=== PATIENT | female | born 1980 | race Hispanic/Latino ===

== ENCOUNTER 2017-11-24 03:46 | Emergency (ER) | payer OTHER ==
[2017-11-24] MEDS ORDERED: Acetaminophen 500 MG TAB ONE (04:03)
[2017-11-24 04:19] LABS: BHCG - Serum Negative (NEGATIVE); Pregs Control Background? CLEAR/WHITE (CLR/WHITE); Pregs Control Bar Appear? YES (CONTROL BAR)
[2017-11-24 04:23] LABS: Band 4 % (5-11); Eosinophils 1 % (0-10); Hemoglobin 15.6 g/dL (12.0-16.0); Lymphocytes 8 % (21-51); MDiff Complete? YES; Mean Corpuscular HGB CONC 33.6 g/dL (32.0-36.0); Mean Corpuscular Hemoglobin 29.8 pg (27.0-31.0); Mean Corpuscular Volume 88.5 fl (81.0-99.0); Mean Platelet Volume 9.2 fL (7.4-10.4); Monocytes 2 % (0-10); Neutrophil 85 % (42-75); Platelet Count 218 thou/uL (130-400); RBC Distribution Width 11.5 % (11.5-14.5); Red Blood Cell (RBC) Count 5.25 mill/uL (4.20-5.40); White Blood Cell (WBC) Count 20.2 thou/uL (4.8-10.8)
[2017-11-24 04:26] LABS: ALT (SGPT) 32 U/L (8-55); AST (SGOT) 27 U/L (5-34); Albumin 4.4 g/dL (3.5-5.0); Alkaline Phosphatase 114 U/L (40-150); Anion Gap 17 mmol/L (10-20); BUN (Urea Nitrogen) 11 mg/dL (7.0-18.7); Bilirubin, Total 0.9 mg/dL (0.2-1.2); Calc. Creatinine Clearance 0 mL/min (70-130); Calcium 9.6 mg/dL (7.8-10.44); Carbon Dioxide 20 mmol/L (22-29); Chloride 102 mmol/L (98-107); Estimated GFR-MDRD 80; Globulin 3.9 g/dL (2.4-3.5); Glucose 107 mg/dL (70-105); Potassium 4.1 mmol/L (3.5-5.1); Protein, Total 8.3 g/dL (6.0-8.3); Sodium 135 mmol/L (136-145)
[2017-11-24 04:28] LABS: CKMB 0.4 ng/mL (0-6.6); Troponin I Less than 0.010 ng/mL (< 0.028)
--- NOTE | 2017-11-24 12:57 | RAD ---
AP VIEW CHEST: HISTORY: Chest pain, left shoulder pain. FINDINGS: AP view chest is obtained on 11/24/17. Comparison is made to previous exam from 03/22/16. AP view chest demonstrates the lungs to be well aerated. No evidence of active intrathoracic disease is seen. No evidence of effusions, pneumonia, or pneumothorax is seen. An old healed left midclavicular fracture is seen. IMPRESSION: No evidence of acute intrathoracic abnormality is seen. POS: [facility]
== END 2017-11-24 05:36 | disposition home or self-care (01) ==
LOC: SCSER 03:46
DX: J06.9 Acute upper respiratory infection, unspecified (principal); R07.89 Other chest pain; F32.9 Major depressive disorder, single episode, unspecified; F17.210 Nicotine dependence, cigarettes, uncomplicated
CPT/HCPCS: 71045; 80053; 82553; 84484; 84703; 85025; 93005

== ENCOUNTER 2017-11-24 20:32 | Inpatient (IN) | payer OTHER ==
[2017-11-24] MEDS ORDERED: Propofol 1,000 MG/100 ML VIAL IV ONE (20:45)
[2017-11-24 21:03] LABS: Bilirubin Negative (Negative); Blood, Urine Trace (Negative); Clarity CLOUDY (Clear); Glucose, Urine (Dipstick) >=1000 mg/dL (Negative); Leukocyte Negative (Negative); Nitrite Negative (Negative); Protein, Urine (Dipstick) 300 mg/dL (Neg-Trace); Specific Gravity, Urine 1.023 (1.002-1.036); pH, Urine 6.5 (5.0-9.0)
[2017-11-24 21:04] LABS: Pregnancy Test - Urine (BHCG) Negative (Negative); Pregu Control Background? CLEAR/WHITE (CLR/WHITE); Pregu Control Bar Appear? YES (CONTROL BAR); Specific Gravity 1.023 (1.002-1.036)
[2017-11-24 21:05] LABS: Bacteria/HPF None Seen HPF (None Seen); Hyaline Casts/LPF 7-10 HYALINE CAST LPF (0-3 Hyaline); Pathc Cast-AUWi Flag 2.16 (0-2.49); WBC/HPF 0-3 HPF (0-3)
[2017-11-24 21:08] LABS: INR-International Normal Ratio 1.1; PTT 23.4 SEC (22.9-36.1); Prothrombin Time 14.5 SEC (12.0-14.7)
[2017-11-24 21:09] LABS: #Monocytes 0.9 thou/uL (0.11-0.59); #Neutrophils 19.4 thou/uL (1.40-6.50); %Basophils 0.1 % (0.0-1.0); %Eosinophils 0.1 % (0.0-10.0); %Lymphocytes 8.8 % (21.0-51.0); %Monocytes 4.2 % (0.0-10.0); %Neutrophils 86.8 % (42.0-75.0); Hemoglobin 14.9 g/dL (12.0-16.0); Mean Corpuscular HGB CONC 33.7 g/dL (32.0-36.0); Mean Corpuscular Hemoglobin 31.4 pg (27.0-31.0); Mean Corpuscular Volume 93.3 fl (81.0-99.0); Mean Platelet Volume 8.1 fL (7.4-10.4); Platelet Count 216 thou/uL (130-400); RBC Distribution Width 11.9 % (11.5-14.5); Red Blood Cell (RBC) Count 4.75 mill/uL (4.20-5.40); White Blood Cell (WBC) Count 22.3 thou/uL (4.8-10.8)
[2017-11-24 21:12] LABS: Amphetamine Not Detected (NotDetected); Barbiturates Screen Not Detected (NotDetected); Benzodiazepine Screen Detected (NotDetected); Cocaine Metabolite Screen Detected (NotDetected); Medtox Control Line Valid? VALID (VALID); Medtox Reader # READER 1; Methadone Not Detected (NotDetected); Methamphetamine Not Detected (NotDetected); Opiate Screen Not Detected (NotDetected); Oxycodone Screen Not Detected (NotDetected); Phencyclidine (PCP) Not Detected (NotDetected); THC/Cannabinoid Screen Not Detected (NotDetected); Tricyclic Screen Not Detected (NotDetected)
[2017-11-24 21:17] LABS: pH, Arterial 7.35 (7.35-7.45)
[2017-11-24 21:18] LABS: Actual Bicarbonate (HCO3a) 22.1 mEq/L (22-26); Base Excess (BEa) -3.2 mEq/L (0 (+/-) 2.5); CO2 Tension 40.7 mmHg (35.0-45.0); Hematocrit-ABG 45.5 % (36.0-47.0); Hemoglobin (Hb) 14.6 g/dL (12.0-16.0); O2 Tension (PaO2) 74.4 mmHg (80.0-100.0)
[2017-11-24 21:19] LABS: Analyzer IN Cardio ER; Calcium, Ionized 1.2 mmol/L (1.12-1.30); Puncture Site RR
[2017-11-24] MEDS ORDERED: Fentanyl 100 MCG/2 ML VIAL ONE ×4 (21:23→23:18)
[2017-11-24 21:24] LABS: ALT (SGPT) 25 U/L (8-55); AST (SGOT) 28 U/L (5-34); Alkaline Phosphatase 106 U/L (40-150); Anion Gap 16 mmol/L (10-20); BUN (Urea Nitrogen) 11 mg/dL (7.0-18.7); Bilirubin, Total 0.5 mg/dL (0.2-1.2); Calc. Creatinine Clearance 0 mL/min (70-130); Calcium 8.8 mg/dL (7.8-10.44); Carbon Dioxide 17 mmol/L (22-29); Chloride 109 mmol/L (98-107); Estimated GFR-MDRD 81; Globulin 3.6 g/dL (2.4-3.5); Glucose 213 mg/dL (70-105); Potassium 4.8 mmol/L (3.5-5.1); Protein, Total 7.6 g/dL (6.0-8.3); Sodium 137 mmol/L (136-145)
[2017-11-24 21:25] LABS: CKMB 0.5 ng/mL (0-6.6)
[2017-11-24 21:29] LABS: Acetaminophen Less than 6.0 mcg/mL (10.0-30.0); Alcohol Less than 10 mg/dL (Less than 10); Salicylate Less than 8.0 mg/dL (15.0-30.0)
[2017-11-24] MEDS ORDERED: Vecuronium 10 MG VIAL ONE (21:36)
[2017-11-24] MEDS ORDERED: Water For Inject, Bacteriostat 30 ML ONE (21:37)
[2017-11-24 21:43] LABS: Troponin I Less than 0.010 ng/mL (< 0.028)
--- NOTE | 2017-11-24 22:06 | RAD ---
FRONTAL RADIOGRAPH CHEST: Date: 11-24-17 Time: 8:41 p.m. Comparison: 11-24-17 at 4:24 a.m. History: Unresponsive patient. FINDINGS: There is an endotracheal tube in place, extending into the region of the right main stem bronchus. Th e endotracheal tube should be retracted approximately 2.5 cm. Nasogastric tube extends into upper abd omen. Supine imaging limits assessment for pneumothorax and pleural fluid. There is mild pulmonary vascular prominence. There is hazy increased density in the medial left lung base which suggests volume loss or infiltrate. IMPRESSION: Lines and tubes as above. This includes right main stem bronchus intubation. Pulmonary vasculature co ngestion and increased density in the medial left base as above. Dr. Mckeon made aware of findings at 9:00 p.m. 11-24-17. Code CR. POS: [facility]
--- NOTE | 2017-11-24 22:12 | CT ---
HEAD CT WITHOUT CONTRAST: Date: 11-24-17 Comparison: None. History: Unresponsive. Technique: Serial axial CT imaging at 5 mm intervals from vertex through skull base without contrast. FINDINGS: Imaged paranasal sinuses/mastoid air cells are well aerated. There is displaced calvarial fracture. There is no intracranial hemorrhage, midline shift, or mass effect. IMPRESSION: No acute intracranial abnormality. POS: [facility]
--- NOTE | 2017-11-24 22:18 | CT ---
CT OF THE CERVICAL SPINE WITHOUT CONTRAST: Date: 11-24-17 Comparison: None. History: Trauma, pain. Technique: Serial axial CT imaging obtained at 2.5 mm intervals from the thoracic inlet to lung bases without contrast. Coronal and sagittal reformatted imaging obtained. FINDINGS: The partially imaged right lung apex demonstrates interstitial and alveolar opacity as well as fluid layering posteriorly. The left lung apex appears unremarkable. Partially imaged endotracheal tube and nasogastric tube present. The craniocervical junction and cervicothoracic junction appear intact. There is moderate degenerativ e change at the atlantoaxial interspace. There is no prevertebral soft tissue swelling. There is mild posterior osteophyte formation at C5-6 and C6-7. There is no evidence for acute fracture or dislocation. IMPRESSION: 1. Imaged right lung apex demonstrates interstitial and alveolar opacity with layering posterior flui d. 2. No cervical fracture or dislocation seen. POS: [facility]
[2017-11-24 22:45] LABS: Color Of CSF Supernatant COLORLESS (Colorless); Tube # 2; Unspun CSF Color COLORLESS (Colorless)
[2017-11-24] MEDS ORDERED: Piperacillin/Tazobactam 4.5 GM in Sodium Chloride 0.9% 100 ML IVPB SCH (22:45)
[2017-11-24 22:58] LABS: CSF, Glucose 105 mg/dl (40-70); CSF, Protein 35 mg/dL (15-40)
--- NOTE | 2017-11-24 23:00 | PDOC.FPRHP ---
- History of Present Illness Chief Complaint: Unresponsive History of Present Illness: This is a 37 y/o F with no known PMHx who presented to the ED by EMS after being found unresponsive by her daughter around 8pm. The history was obtained by the daughter. The patient had been not feeling well over the past day and had gone to the ED in the middle of the night prior at [facility] ED for URI symptoms and was found to have an elevated WBC count and was sent home with a prescription for azithromycin. The patient reportedly had felt better throughout the day, but then the daughter states that she heard her mom say that night that she just "wanted to go to sleep." The daughter rushed home at that point and the other son and daughter were at the house and found that she had fallen on the bathroom floor and had vomit and mucus around her mouth and was laying on her right side. The daughter reports that she does not think that the mom had been under any worse stress lately. ED Course: The patient was evaluated by Dr. Mckeon in the ED and was given propofol gtt, fentanyl 100mcg IVP 4 times, vecuronium 10mg IVP, Vancomycin 1g, Zosyn 4.5g. A Lumbar puncture was performed in the ED as well. - Allergies/Adverse Reactions Allergies Allergy/AdvReac Type Severity Reaction Status Date / Time No Known Drug Allergies Allergy Verified 11/24/17 22:44 - Home Medications Comments: Unable to obtain due to endotracheal tube. - History PMHx: No known PSHx: No known FHx: No known Social: Per the daughter, the patient smokes and drinks occasionally, but does not use any drugs - Review of Systems ROS unobtainable: due to endotracheal tube - Vital signs BP: 112/77 HR: 60 RR: 14 Tmax: 97.2 Pox: 100% on Ventilator Wt: 71.5kg - Physical Exam Constitutional: other (intubtated, sedated) HEENT: PERRLA, conjunctiva clear, normal nasal mucosa, MMM, oropharynx clear ( endotracheal tube in place) Neck: trachea midline, no LAD Heart: RRR, normal S1/S2, no murmurs/rubs/gallops -Lungs: Intubated, ventilated, crackles heard bilaterally, no wheezes Abdomen: soft, bowel sounds present, no masses/distention Musculoskeletal: normal structure, normal tone Skin: good turgor, capillary refill <2 seconds Heme/Lymphatic: no unusual bruising or bleeding, no petechia FMR H&P: Results - Labs Result Diagrams: 11/24/17 20:46 11/24/17 20:46 Lab results: WBC 22.3 thou/uL (4.8-10.8) H 11/24/17 20:46 Hgb 14.9 g/dL (12.0-16.0) 11/24/17 20:46 Hct 44.4 % (36.0-47.0) 11/24/17 20:46 MCV 93.3 fl (81.0-99.0) 11/24/17 20:46 Plt Count 216 thou/uL (130-400) 11/24/17 20:46 Neutrophils % 86.8 % (42.0-75.0) H 11/24/17 20:46 ABG pH 7.35 (7.35-7.45) 11/24/17 21:06 ABG pCO2 40.7 mmHg (35.0-45.0) 11/24/17 21:06 ABG pO2 74.4 mmHg (80.0-100.0) L 11/24/17 21:06 Sodium 137 mmol/L (136-145) 11/24/17 20:46 Potassium 4.8 mmol/L (3.5-5.1) 11/24/17 20:46 Chloride 109 mmol/L (98-107) H 11/24/17 20:46 Carbon Dioxide 17 mmol/L (22-29) L 11/24/17 20:46 BUN 11 mg/dL (7.0-18.7) 11/24/17 20:46 Creatinine 0.80 mg/dL (0.6-1.1) 11/24/17 20:46 Glucose 213 mg/dL (70-105) H 11/24/17 20:46 Lactic Acid 2.3 mmol/L (0.5-2.2) H 11/24/17 20:46 Calcium 8.8 mg/dL (7.8-10.44) 11/24/17 20:46 Total Bilirubin 0.5 mg/dL (0.2-1.2) 11/24/17 20:46 AST 28 U/L (5-34) 11/24/17 20:46 ALT 25 U/L (8-55) 11/24/17 20:46 Alkaline Phosphatase 106 U/L (40-150) 11/24/17 20:46 CK-MB (CK-2) 0.5 ng/mL (0-6.6) 11/24/17 20:46 Serum Total Protein 7.6 g/dL (6.0-8.3) 11/24/17 20:46 Albumin 4.0 g/dL (3.5-5.0) 11/24/17 20:46 Urine Ketones Negative mg/dL (Negative) 11/24/17 20:45 Urine Blood Trace (Negative) H 11/24/17 20:45 Urine Nitrite Negative (Negative) 11/24/17 20:45 Ur Leukocyte Esterase Negative (Negative) 11/24/17 20:45 Urine RBC 7-10 HPF (0-3) H 11/24/17 20:45 Urine WBC 0-3 HPF (0-3) 11/24/17 20:45 Ur Squamous Epith Cells 7-10 HPF (0-3) H 11/24/17 20:45 Urine Bacteria None Seen HPF (None Seen) 11/24/17 20:45 - EKG Interpretation EKG: NSR, T wave inversion in lead III - Radiology Interpretation Chest x-ray Status: image reviewed by me, report reviewed by me Additional comment: Pulmonary vascular congestion, increased density in medial L base CT scan - head Status: report reviewed by me Additional comment: No acute intracranial process Other Status: image reviewed by me, report reviewed by me Additional comment: CT cervical spine: R lung apex - interstitial and alveolar opacity with layering posterior fluid. No cervical fracture FMR H&P: A/P - Problem List (1) Encephalopathy Current Visit: Yes Status: Acute Code(s): G93.40 - ENCEPHALOPATHY, UNSPECIFIED (2) Acute respiratory failure with hypoxia Current Visit: Yes Status: Acute Code(s): J96.01 - ACUTE RESPIRATORY FAILURE WITH HYPOXIA (3) Aspiration pneumonia due to inhalation of vomitus Current Visit: Yes Status: Suspected Code(s): J69.0 - PNEUMONITIS DUE TO INHALATION OF FOOD AND VOMIT (4) Hyperglycemia Current Visit: Yes Status: Acute Code(s): R73.9 - HYPERGLYCEMIA, UNSPECIFIED (5) Cocaine abuse Current Visit: Yes Status: Acute Code(s): F14.10 - COCAINE ABUSE, UNCOMPLICATED (6) Benzodiazepine abuse Current Visit: Yes Status: Acute Code(s): F13.10 - SEDATIVE, HYPNOTIC OR ANXIOLYTIC ABUSE, UNCOMPLICATED (7) Leukocytosis Current Visit: Yes Status: Acute Code(s): D72.829 - ELEVATED WHITE BLOOD CELL COUNT, UNSPECIFIED Qualifiers: Leukocytosis type: unspecified Qualified Code(s): D72.829 - Elevated white blood cell count, unspecified (8) Metabolic acidosis Current Visit: Yes Status: Acute Code(s): E87.2 - ACIDOSIS - Plan Encephalopathy This is likely toxic 2/2 drug overdose, but cannot rule out infectious. UDS was + for benzos and cocaine. Brain CT neg. Concern for SI based on the daughter's history. CXR concerning for increased density at R lung base. Elevated WBC count at 22.3. -Admit to ICU -Consult pulmonology/Critical Care -Continue mechanical ventilation and sedation protocol at this time -CSF cx -Blood cx -Urine cx -Consult [facility] once medically cleared Acute Hypoxic Respiratory Failure Intubated and sedated by EMS as unable to protect airway and had a respiratory rate of 8. This is likely 2/2 drug overdose with cocaine and benzos on UDS, but patient also has elevated WBC count and concern for pneumonia on CXR. -Continue mechanical ventilation -Consult Pulm, appreciate recs Concern for Aspiration Pneumonia The patient was found down with vomit next to her. After being admitted to the floor she was suctioned and there was vomit that came out in the suction. On the CT it showed concern for aspiration in her RUL. -Vanc and Zosyn -NS Lactic acidosis Initial lactate was 2.3 -Repeat lactate -Will give NS Polysubstance abuse UDS was positive for Cocaine and Benzos -Redrawer once awake Hyperglycemia Initial glucose was elevated and the patient has no h/o DM. -A1c -SSI if the glucose remains elevated Metabolic acidosis This is likely a compensatory mechanism 2/2 respiratory depression due to patient having a RR of 8 when initially found by EMS -BMP in AM Disposition/LOS: Admit to ICU, length of stay likely 2 days FMR H&P: Upper Level - Plan Date/Time: 11/24/17 1440 Gaye Michel, PGY3, have evaluated this patient and agree with findings/plan as outlined by editing internship resident. Pertinent changes/additions are listed here. This is a 37 yo WF w/ no PMH per daughter and son, presents w/ AMS. She was found down around 8:00pm in the bathroom, and had told her 11year old daughter that she just wanted to sleep and was noted to have difficulty breathing. When older daughter arrived, she was covered in secretions. Denied any seizure like activity. No loss of bowel or bladder. PE: Gen: Intubated and Sedated CV: Difficult to hear over ventilator Resp: course breath sounds bilaterally. on Ventilator: R-14, Ps-10, Oxy 100%, PEEP 5, Vt- 500. Ext: +2 pedal pulses bilaterally Skin: Multiple tattooes. No rash. Abd: Soft. No rebound or guarding. A/P: 1) Encephalopathy - Toxic verses metabolic verses infectious. Brain CT negative. UDS positive for Coccaine and Benzo's. Per family, they deny any medications. CXR showed pulmonary vascular congestion and increased density at medial right base. Possibly SI. Sitter once awake. Consult [employer] once medically cleared. Admit patient to the ICU. F/u with CSF, blood cx, urine cx. Consult Critical Care. C-Spine CT scan - negative for fracture. Pt in cervical collar. 2) Acute hypoxic respiratory failure - Intubated and sedated on EMS as unable to protect airway. Possibly 2/2 overdose verse infectious cause. 3) Possibly aspiration pneumonia - Vancomycin, Zosyn. Fluids. 3) Lactic acidosis - Repeat Lactic acid. Fluids 4) Polysubstance abuse - UDS + coccaine and Benzodiazepine. 5) Elevated Glucose - HgA1c. Accuchecks. Betahydroxybuterate. ISS 6) Metabolic acidosis - likely compensating for respiratory depression. F/u with BMP in am. Attending Addendum - Attending Addendum Date/Time: 11/25/17215 I personally evaluated the patient and discussed the management with Dr. Denny on 11/25/17. I agree with the History, Examination, Assessment and Plan documented above with any addition or exceptions noted below. Patient with acute hypoxic respiratory failure secondary requiring mechanical ventilation secondary to drug overdose with cocaine and benzos, as well as aspiration pneumonia also secondary to drug overdose. On Vanc/Zosyn for aspiration PNA. Neuro exam grossly intact based on patient's movements when sedation wears off. Likely extubate in the morning. Once extubated and medically stable, recommend MHMR consult.
[2017-11-24 23:18] LABS: CSF Source CSF; Clarity Hazy (Clear); RBC Count - Manual 2796 /cumm (None Seen); Tube # 1; WBC/NonHematics Count - Manual 0 /cumm (0-5)
[2017-11-24 23:22] LABS: CSF Source CSF; Clarity Clear (Clear); RBC Count - Manual 10 /cumm (None Seen); Tube # 4; WBC/NonHematics Count - Manual 0 /cumm (0-5)
[2017-11-25] MEDS ORDERED: Fentanyl 100 MCG/2 ML VIAL ONE (00:02)
[2017-11-25] MEDS ORDERED: Dextrose 50% Abboject 50 ML SYRINGE SLOW IVP PRN (00:25)
[2017-11-25] MEDS ORDERED: Senokot 8.6 MG TAB PO PRN (00:25)
[2017-11-25] MEDS ORDERED: Dextrose 5% in Water 1,000 ML IV PRN (00:25)
[2017-11-25] MEDS ORDERED: Sedation Protocol FS SCH (00:25)
[2017-11-25] MEDS ORDERED: HumaLOG 300 UNITS/3 ML VIAL SC PRN ×2 (00:25)
[2017-11-25] MEDS ORDERED: Ondansetron ODT 4 MG TAB PO PRN (00:25)
[2017-11-25] MEDS ORDERED: Lorazepam 2 MG/ML VIAL ONE (00:28)
[2017-11-25] MEDS ORDERED: Sodium Chloride 0.9% 1,000 ML IV SCH (00:30)
[2017-11-25] MEDS ORDERED: DISCONTINUE PREVIOUS NARCOTIC PAIN MEDICATIONS AND BENZODIAZEPINES FS SCH (00:36)
[2017-11-25] MEDS ORDERED: fentaNYL Citrate/PF 2,000 MCG in Sodium Chloride 0.9% 60 ML IV SCH (00:36)
[2017-11-25] MEDS ORDERED: Morphine 2 MG/ML SYRINGE SLOW IVP PRN (00:36)
[2017-11-25] MEDS ORDERED: Morphine 4 MG/ML VIAL SLOW IVP PRN (00:38)
[2017-11-25] MEDS: Sodium Chloride 0.9% 1,000 ML IV SCH ×4 (01:00→19:18)
[2017-11-25] MEDS: Propofol 1,000 MG/100 ML VIAL IV PRN ×6 (01:21→23:22)
[2017-11-25 01:30] LABS: Lactic Acid 1.8 mmol/L (0.5-2.2)
[2017-11-25 01:46] LABS: CKMB 0.8 ng/mL (0-6.6); Troponin I 0.119 ng/mL (< 0.028)
[2017-11-25] MEDS: Lorazepam 2 MG/ML VIAL SLOW IVP PRN ×5 (02:48→23:11)
[2017-11-25 05:06] LABS: #Lymphocytes 1.9 thou/uL (1.20-3.40); #Monocytes 1.2 thou/uL (0.11-0.59); #Neutrophils 22.4 thou/uL (1.40-6.50); %Basophils 0.1 % (0.0-1.0); %Eosinophils 0.1 % (0.0-10.0); %Lymphocytes 7.4 % (21.0-51.0); %Monocytes 4.9 % (0.0-10.0); %Neutrophils 87.6 % (42.0-75.0); Hemoglobin 13.8 g/dL (12.0-16.0); Mean Corpuscular HGB CONC 32.7 g/dL (32.0-36.0); Mean Corpuscular Hemoglobin 30.6 pg (27.0-31.0); Mean Corpuscular Volume 93.6 fl (81.0-99.0); Mean Platelet Volume 9.5 fL (7.4-10.4); Platelet Count 170 thou/uL (130-400); RBC Distribution Width 11.9 % (11.5-14.5); White Blood Cell (WBC) Count 25.6 thou/uL (4.8-10.8)
[2017-11-25 05:24] LABS: Anion Gap 14 mmol/L (10-20); BUN (Urea Nitrogen) 8 mg/dL (7.0-18.7); Calc. Creatinine Clearance 129 mL/min (70-130); Calcium 8.7 mg/dL (7.8-10.44); Carbon Dioxide 16 mmol/L (22-29); Chloride 112 mmol/L (98-107); Estimated GFR-MDRD Greater than 90; Glucose 107 mg/dL (70-105); Potassium 3.6 mmol/L (3.5-5.1); Sodium 138 mmol/L (136-145)
[2017-11-25 05:46] LABS: CKMB 1.1 ng/mL (0-6.6); Troponin I 0.126 ng/mL (< 0.028)
[2017-11-25] MEDS ORDERED: Piperacillin/Tazobactam 3.375 GM in Sodium Chloride 0.9% 100 ML IVPB SCH (06:00)
[2017-11-25 07:28] LABS: Puncture Site LRA
[2017-11-25 07:29] LABS: ALV-art Gradient 135.775 (0-20); Actual Bicarbonate (HCO3a) 18.8 mEq/L (22-26); Base Excess (BEa) -2.7 mEq/L (0 (+/-) 2.5); CO2 Tension 24.1 mmHg (35.0-45.0); O2 Tension (PaO2) 119.3 mmHg (80.0-100.0); pH, Arterial 7.51 (7.35-7.45)
[2017-11-25 07:30] LABS: Calcium, Ionized 1.2 mmol/L (1.12-1.30); Hematocrit-ABG 35.3 % (36.0-47.0); Hemoglobin (Hb) 12.2 g/dL (12.0-16.0)
[2017-11-25] MEDS: Enoxaparin Sodium 40 MG/0.4 ML SYRINGE SC SCH (08:02)
[2017-11-25] MEDS: Vancomycin HCl 1 GM in Premix Bag 1 BAG IVPB SCH ×2 (08:03→21:59)
[2017-11-25] MEDS: Piperacillin/Tazobactam 3.375 GM in Sodium Chloride 0.9% 100 ML IVPB SCH ×3 (08:03→21:59)
[2017-11-25] MEDS: Famotidine 40 MG/4 ML VIAL SLOW IVP SCH ×2 (08:50→22:07)
[2017-11-25 08:52] LABS: CKMB 1.1 ng/mL (0-6.6); Troponin I 0.165 ng/mL (< 0.028)
[2017-11-25] MEDS ORDERED: FLU VACC QS2017-18 36 mo. & older 0.5 ML SYRINGE IM ONE (09:00)
--- NOTE | 2017-11-25 09:01 | PDOC.FM ---
- Subjective Subjective: Patient found at bedside, intubated and sedated. Nursing states there was no issues overnight besides agitation. Patient was placed in restraint for self protection. - Objective MAR Reviewed: Yes Vital Signs & Weight: Vital Signs (12 hours) Temp Pulse Resp BP Pulse Ox 11/25/17 06:52 68 107/73 11/25/17 06:00 14 11/25/17 04:00 97.4 F L 14 11/25/17 02:00 14 11/25/17 01:31 70 11/25/17 00:39 96.4 F L 67 14 100 11/25/17 00:25 14 11/25/17 00:10 97.8 F 70 14 98 Weight Admit Weight 70.2 kg Weight 71.3 kg Most Recent Monitor Data Heart Rate from ECG 62 NIBP 121/80 NIBP BP-Mean 100 Respiration from ECG 14 SpO2 100 I&O: 11/24/17 11/25/17 11/26/17 06:59 06:59 06:59 Intake Total 1026 Output Total 145 Balance 881 Result Diagrams: 11/25/17 04:28 11/25/17 04:28 <Hai Warner - Last Filed: 11/25/17 10:15> - Objective Vital Signs & Weight: Vital Signs (12 hours) Temp Pulse Resp BP Pulse Ox 11/25/17 06:52 68 107/73 11/25/17 06:00 14 11/25/17 04:00 97.4 F L 14 11/25/17 02:00 14 11/25/17 01:31 70 11/25/17 00:39 96.4 F L 67 14 100 11/25/17 00:25 14 11/25/17 00:10 97.8 F 70 14 98 Weight Admit Weight 70.2 kg Weight 71.3 kg Most Recent Monitor Data Heart Rate from ECG 62 NIBP 121/80 NIBP BP-Mean 100 Respiration from ECG 14 SpO2 100 I&O: 11/24/17 11/25/17 11/26/17 06:59 06:59 06:59 Intake Total 1026 Output Total 145 Balance 881 Result Diagrams: 11/25/17 04:28 11/25/17 04:28 <Radha Baez - Last Filed: 11/25/17 10:42> Phys Exam - Physical Examination Sedated HEENT: sclera anicteric PERRL Neck: no nodes Respiratory: no wheezing, clear to auscultation bilateral Cardiovascular: RRR, no significant murmur Gastrointestinal: soft, non-tender, no distention Musculoskeletal: no edema Sedated <Hai Warner - Last Filed: 11/25/17 10:15> Dx/Plan (1) Polysubstance abuse Code(s): F19.10 - OTHER PSYCHOACTIVE SUBSTANCE ABUSE, UNCOMPLICATED Status: Acute Plan: Positive for cocaine and benzo. Consider suicide as possibility, will consult [facility] and continue respiratory support (2) Acute respiratory failure with hypoxia Code(s): J96.01 - ACUTE RESPIRATORY FAILURE WITH HYPOXIA Status: Acute Plan: Currently sedated and on vent. Pulmonology is considering extubation tomorrow. Patient O2 saturation is appropriate. (3) Encephalopathy Code(s): G93.40 - ENCEPHALOPATHY, UNSPECIFIED Status: Acute Plan: At this time, still sedated, was combative when sedation lightened. Dx includes infectious vs substance abuse. (4) Hyperglycemia Code(s): R73.9 - HYPERGLYCEMIA, UNSPECIFIED Status: Acute Plan: At this time resolved. Last two BG was 107. (5) Aspiration pneumonia due to inhalation of vomitus Code(s): J69.0 - PNEUMONITIS DUE TO INHALATION OF FOOD AND VOMIT Status: Suspected Plan: CT read concerning for pneumonia. Covering for aspiration as patient was found next to vomit. Currently, not fevering, is on ventilator, cultures are pending. On zosyn and vanc. (6) Cardiac enzymes elevated Code(s): R74.8 - ABNORMAL LEVELS OF OTHER SERUM ENZYMES Status: Acute Plan: Cardiac going up. Will continue to trend. WIll consult cardiology if it continues to worsen. <AlanaHai Javi - Last Filed: 11/25/17 10:15> Attending Addendum - Attending Addendum Date/Time: 11/25/17 1041 I personally evaluated the patient and discussed the management with Dr. Warner. I agree with the History, Examination, Assessment and Plan documented above with any addition or exceptions noted below. The patient is intubated and sedated. Continue IV antibiotics. Cultures are pending. Appreciate Dr. Heard's recs. Cardiac enzymes are increasing likely 2/2 to demand. Will continue to trend. Check vanc trough. <Radha Baez - Last Filed: 11/25/17 10:42>
--- NOTE | 2017-11-25 09:16 | RAD ---
SINGLE VIEW OF THE CHEST: COMPARISON: None. HISTORY: Intubated patient with respiratory failure. FINDINGS: A single view of the chest shows a normal-size cardiomediastinal silhouette. The lines and tubes are unchanged in position. There is no evidence of consolidation, mass, or pleural effusion. IMPRESSION: No evidence of acute cardiopulmonary disease. POS: [facility]
--- NOTE | 2017-11-25 09:51 | CON ---
DATE OF CONSULTATION: 11/25/2017 Thirty-five minutes critical care time. CONSULTING PHYSICIAN: [facility]. HISTORY OF PRESENT ILLNESS: This is a 37-year-old female who was found down at home by her daughter around 8:00 last night. She was intubated in the field by paramedics secondary to altered mental sta tus. She had a lumbar puncture performed in the emergency room which essentially was negative for wh ite blood cells. As testing came back, it showed the patient was positive for both benzodiazepines a nd cocaine. Apparently prior to her incident yesterday she had been complaining of not feeling well and had vomited. PAST MEDICAL HISTORY: Unknown. PAST SURGICAL HISTORY: Unknown. FAMILY MEDICAL HISTORY: Unremarkable. SOCIAL HISTORY: Apparently smokes cigarettes and drinks alcohol, but quantity is unknown. Employmen t history is not known. ALLERGIES: None. REVIEW OF SYSTEMS: Twelve point review of systems cannot be obtained as the patient is intubated on mechanical ventilation. PHYSICAL EXAMINATION: VITAL SIGNS: Temperature is 97.4 with no fever overnight, pulse 62, blood pressure 121/80, 24-hour i ntake 1026, output 145. GENERAL: She has tattoos throughout her skin. HEENT: Her pupils are reactive to light. Sclerae icteric. Oropharynx dry. NECK: No JVD. LUNGS: Clear to auscultation without wheezing or rhonchi. CARDIOVASCULAR: S1, S2 regular, without murmur, rub or gallop. ABDOMEN: Soft, nontender, nondistended. EXTREMITIES: No clubbing, cyanosis, or edema. NEUROLOGIC: She moves all 4 extremities, but does not follow commands for me. LABORATORY DATA: White blood cell count 25.6, hemoglobin 13.8, hematocrit 42.1, platelet count 170. INR 1.1, PTT 23.4, pH 7.51, pCO2 24, pO2 119.70, rate 14, tidal volume 500, PEEP 5, pressure support 10, FiO2 40%. Sodium 138, potassium 3.6, chloride 112, CO2 16, BUN 8, creatinine 0.6, glucose 107. Troponin 0.12. Lumbar puncture showed no white blood cells. She had copious red blood cells. Drug screen positive for cocaine, benzodiazepines. Chest x-ray last night showed a right mainstem intubation that has been pulled back. This morning's x-ray actually looks clear aside from maybe a faint infiltrate in the right middle lobe region. ASSESSMENT: 1. Acute respiratory failure requiring mechanical ventilation. 2. Cocaine toxicity. 3. Possible sepsis syndrome. 4. Mild metabolic acidosis. RECOMMENDATIONS: 1. I will leave the patient intubated today and sedated. 2. Continue the antibiotics as you are doing and await culture results. 3. Continue IV fluid resuscitation. 4. GI prophylaxis with Pepcid. 5. DVT prophylaxis with enoxaparin. 6. Hopefully extubate tomorrow if she remains stable.
[2017-11-25 12:41] LABS: Troponin I 0.095 ng/mL (< 0.028)
[2017-11-25 20:14] LABS: Vancomycin, Trough 11.1 ug/mL
[2017-11-26] MEDS: Lorazepam 2 MG/ML VIAL SLOW IVP PRN ×2 (01:59→03:31)
[2017-11-26] MEDS: Piperacillin/Tazobactam 3.375 GM in Sodium Chloride 0.9% 100 ML IVPB SCH ×2 (02:05→07:58)
[2017-11-26] MEDS: Propofol 1,000 MG/100 ML VIAL IV PRN ×2 (03:31→07:34)
[2017-11-26 04:08] LABS: #Basophils 0.1 thou/uL (0.0-0.2); #Eosinphils 0.1 thou/uL (0.0-0.7); #Lymphocytes 2.9 thou/uL (1.20-3.40); #Neutrophils 14.3 thou/uL (1.40-6.50); %Basophils 0.4 % (0.0-1.0); %Eosinophils 0.5 % (0.0-10.0); %Lymphocytes 15.9 % (21.0-51.0); %Monocytes 5.6 % (0.0-10.0); %Neutrophils 77.7 % (42.0-75.0); Hemoglobin 13.5 g/dL (12.0-16.0); Mean Corpuscular HGB CONC 33.3 g/dL (32.0-36.0); Mean Corpuscular Hemoglobin 31.6 pg (27.0-31.0); Mean Corpuscular Volume 95.1 fl (81.0-99.0); Mean Platelet Volume 8.6 fL (7.4-10.4); Platelet Count 162 thou/uL (130-400); RBC Distribution Width 12.1 % (11.5-14.5); Red Blood Cell (RBC) Count 4.27 mill/uL (4.20-5.40); White Blood Cell (WBC) Count 18.4 thou/uL (4.8-10.8)
[2017-11-26 04:26] LABS: Anion Gap 12 mmol/L (10-20); BUN (Urea Nitrogen) 6 mg/dL (7.0-18.7); Calc. Creatinine Clearance 111 mL/min (70-130); Calcium 8.2 mg/dL (7.8-10.44); Carbon Dioxide 19 mmol/L (22-29); Chloride 114 mmol/L (98-107); Estimated GFR-MDRD 83; Glucose 82 mg/dL (70-105); Potassium 3.8 mmol/L (3.5-5.1); Sodium 141 mmol/L (136-145)
[2017-11-26] MEDS: Sodium Chloride 0.9% 1,000 ML IV SCH ×3 (04:55→17:15)
--- NOTE | 2017-11-26 07:58 | PDOC.FM ---
- Subjective Subjective: Patient found at bedside. She is sedated and intubated. Nursing state therehas been no overnight event. - Objective MAR Reviewed: Yes Vital Signs & Weight: Vital Signs (12 hours) Temp Pulse Resp BP 11/26/17 07:48 94 123/81 11/26/17 06:00 10 L 11/26/17 04:00 11 L 11/26/17 02:17 87 11/26/17 02:00 11 L 11/26/17 00:00 98.7 F 10 L 11/25/17 22:58 88 119/76 11/25/17 22:00 10 L 11/25/17 20:00 10 L Weight Admit Weight 70.2 kg Weight 72.6 kg Most Recent Monitor Data Heart Rate from ECG 85 NIBP 106/67 NIBP BP-Mean 75 Respiration from ECG 18 SpO2 100 I&O: 11/25/17 11/26/17 11/27/17 06:59 06:59 06:59 Intake Total 1026 3371 Output Total 145 2083 Balance 881 1288 Result Diagrams: 11/26/17 03:50 11/26/17 03:50 <Hai Warner - Last Filed: 11/26/17 07:56> - Objective Vital Signs & Weight: Vital Signs (12 hours) Temp Pulse Resp BP 11/26/17 07:48 94 123/81 11/26/17 06:00 10 L 11/26/17 04:00 11 L 11/26/17 02:17 87 11/26/17 02:00 11 L 11/26/17 00:00 98.7 F 10 L 11/25/17 22:58 88 119/76 Weight Admit Weight 70.2 kg Weight 72.6 kg Most Recent Monitor Data Heart Rate from ECG 85 NIBP 106/67 NIBP BP-Mean 75 Respiration from ECG 18 SpO2 100 I&O: 11/25/17 11/26/17 11/27/17 06:59 06:59 06:59 Intake Total 1026 3371 Output Total 145 2083 Balance 881 1288 Result Diagrams: 11/26/17 03:50 11/26/17 03:50 <Radha Baez - Last Filed: 11/26/17 10:52> Phys Exam - Physical Examination Constitutional: NAD HEENT: moist MMs, sclera anicteric Respiratory: no wheezing, no rales, no rhonchi, clear to auscultation bilateral Cardiovascular: RRR, no significant murmur Gastrointestinal: soft, non-tender, no distention Musculoskeletal: no edema Neurological: moves all 4 limbs Lymphatic: no nodes Deviation from normal: Sedated Skin: no rash <Hai Warner Javi - Last Filed: 11/26/17 07:56> Dx/Plan (1) Acute respiratory failure with hypoxia Code(s): J96.01 - ACUTE RESPIRATORY FAILURE WITH HYPOXIA Status: Acute Plan: Currently sedated and on vent. Pulmonology is considering extubation today O2 appropriate and patient is not fighting vent. (2) Encephalopathy Code(s): G93.40 - ENCEPHALOPATHY, UNSPECIFIED Status: Acute Plan: At this time, still sedated, was combative when sedation lightened. Dx includes infectious vs substance abuse. Covered with abx for infection. Sedated and intubated until patient starts recovering from polysubstance use. (3) Aspiration pneumonia due to inhalation of vomitus Code(s): J69.0 - PNEUMONITIS DUE TO INHALATION OF FOOD AND VOMIT Status: Suspected Plan: CT read concerning for pneumonia. Covering for aspiration as patient was found next to vomit. Currently, not fevering, is on ventilator, cultures are pending. On zosyn and vanc. (4) Cardiac enzymes elevated Code(s): R74.8 - ABNORMAL LEVELS OF OTHER SERUM ENZYMES Status: Acute Plan: Cardiac enzyme dropped with repeat labs. Likely patient had demand ischemia. (5) Polysubstance abuse Code(s): F19.10 - OTHER PSYCHOACTIVE SUBSTANCE ABUSE, UNCOMPLICATED Status: Acute Plan: Positive for cocaine and benzo. Consider suicide as possibility, will consult [facility] and continue respiratory support No sign of withdrawal at this time. (6) Hyperglycemia Code(s): R73.9 - HYPERGLYCEMIA, UNSPECIFIED Status: Acute Plan: At this time resolved. Unlikely to have underlying diabetes. <AlanaHai Javi - Last Filed: 11/26/17 07:56> Attending Addendum - Attending Addendum Date/Time: 11/26/17 1051 I personally evaluated the patient and discussed the management with Dr. Warner. I agree with the History, Examination, Assessment and Plan documented above with any addition or exceptions noted below. The patient has been extubated but is sleeping heavily. Vitals are stable. Continuing antibiotics until cultures return. Family updated at the bedside. Waiting on patient to be more alert to try to get a better history from her. Will likely need [facility] and substance abuse education. <Radha Baez - Last Filed: 11/26/17 10:52>
[2017-11-26 08:03] LABS: Actual Bicarbonate (HCO3a) 21.2 mEq/L (22-26); Base Excess (BEa) -2.7 mEq/L (0 (+/-) 2.5); Hematocrit-ABG 36.8 % (36.0-47.0); Hemoglobin (Hb) 12.7 g/dL (12.0-16.0); O2 Tension (PaO2) 107.4 mmHg (80.0-100.0); pH, Arterial 7.41 (7.35-7.45)
[2017-11-26 08:05] LABS: Calcium, Ionized 1.1 mmol/L (1.12-1.30); Puncture Site L.R.
[2017-11-26] MEDS ORDERED: DC Sedation Protocol FS ONE (08:19)
[2017-11-26] MEDS: Enoxaparin Sodium 40 MG/0.4 ML SYRINGE SC SCH (08:41)
[2017-11-26] MEDS: Famotidine 40 MG/4 ML VIAL SLOW IVP SCH ×2 (09:23→22:20)
[2017-11-26] MEDS: Vancomycin HCl 1 GM in Premix Bag 1 BAG IVPB SCH (09:25)
[2017-11-26] MEDS: Ondansetron HCl/PF 4 MG/2 ML Vial IVP PRN (09:31)
--- NOTE | 2017-11-26 09:37 | PRG ---
DATE OF SERVICE: 11/26/2017 Thirty-five minutes critical care time. The patient remains intubated on mechanical ventilation. She will wake up and follow some commands. PHYSICAL EXAMINATION: VITAL SIGNS: Temperature is 98.7, pulse 85, blood pressure 106/67. 24 hour intake 3371, output 2083 . HEENT: Pupils react. Sclerae anicteric. Oropharynx clear. NECK: No JVD. LUNGS: Clear to auscultation without wheezing or rhonchi. CARDIOVASCULAR: S1, S2 regular. ABDOMEN: Soft, nontender, nondistended. EXTREMITIES: No clubbing, cyanosis, edema. LABORATORY DATA: White blood cell count 18.4, hemoglobin 13.5, hematocrit 40.6, platelet count 162. PH 7.41, pCO2 34, pO2 of 107 on SIMV rate 10, tidal volume 500, PEEP 5, pressure support 10, FiO2 40 %. Sodium 141, potassium 3.8, chloride 114, CO2 19, BUN 6, creatinine 0.7, glucose 83. ASSESSMENT: 1. Acute respiratory failure requiring mechanical ventilation. 2. Status post cocaine toxicity. 3. Possible concurrent sepsis syndrome. 4. Resolving metabolic acidosis. PLAN: 1. Extubate and observe. 2. Continuing antibiotics for the time being. If her cultures are negative, then I would stop the v ancomycin as soon as possible. 3. Increase activity. 4. Can likely be transferred to the floor later this afternoon. 5. Suggest substance abuse referral.
[2017-11-27] MEDS: Sodium Chloride 0.9% 1,000 ML IV SCH ×2 (00:08→07:25)
[2017-11-27 05:29] LABS: #Basophils 0.1 thou/uL (0.0-0.2); #Eosinphils 0.2 thou/uL (0.0-0.7); #Monocytes 0.5 thou/uL (0.11-0.59); #Neutrophils 6.4 thou/uL (1.40-6.50); %Basophils 0.7 % (0.0-1.0); %Eosinophils 2.1 % (0.0-10.0); %Lymphocytes 21.8 % (21.0-51.0); %Monocytes 5.8 % (0.0-10.0); %Neutrophils 69.6 % (42.0-75.0); Hemoglobin 13.1 g/dL (12.0-16.0); Mean Corpuscular HGB CONC 34.1 g/dL (32.0-36.0); Mean Corpuscular Hemoglobin 32.4 pg (27.0-31.0); Mean Corpuscular Volume 95.1 fl (81.0-99.0); Mean Platelet Volume 8.8 fL (7.4-10.4); Platelet Count 172 thou/uL (130-400); RBC Distribution Width 11.8 % (11.5-14.5); Red Blood Cell (RBC) Count 4.03 mill/uL (4.20-5.40); White Blood Cell (WBC) Count 9.3 thou/uL (4.8-10.8)
[2017-11-27 05:37] LABS: Anion Gap 11 mmol/L (10-20); BUN (Urea Nitrogen) Less than 4 mg/dL (7.0-18.7); Calc. Creatinine Clearance 151 mL/min (70-130); Calcium 8.3 mg/dL (7.8-10.44); Carbon Dioxide 23 mmol/L (22-29); Chloride 108 mmol/L (98-107); Estimated GFR-MDRD Greater than 90; Glucose 77 mg/dL (70-105); Potassium 3.2 mmol/L (3.5-5.1); Sodium 139 mmol/L (136-145)
[2017-11-27] MEDS ORDERED: Potassium Chloride 40 MEQ in Sodium Chloride 0.9% 250 ML 250 ML IVPB SCH (08:00)
--- NOTE | 2017-11-27 08:45 | PRG ---
DATE OF SERVICE: 11/27/2017 I was able to extubate the patient yesterday. She has done reasonably well overnight. She is still quite sleepy, but will wake up and answer some questions. She passed a swallowing evaluation earlier this morning. PHYSICAL EXAMINATION: VITAL SIGNS: Temperature is 98.3 with no fever overnight, pulse 83, blood pressure 119/81. 24 hour intake 3449, output 3835. NEURO: Neurologically, she is alert when stimulated and can answer questions appropriately. She has a nonfocal neurologic exam otherwise. HEENT: Unremarkable. NECK: Without adenopathy or JVD. LUNGS: Clear without wheezing. CARDIAC: S1, S2 regular, without murmur. She had some midsternal chest pain to deep palpation. EXTREMITIES: No clubbing, cyanosis, or edema. LABORATORY DATA: Sodium 139, potassium 3.2, chloride 108, CO2 23, BUN 4, creatinine 0.5, glucose 77. White blood cell count 9.3, hematocrit 38.4, platelet count 172. ASSESSMENT: 1. Cocaine toxicity at the time of admission. 2. Acute respiratory failure. 3. Resolved metabolic acidosis. PLAN: 1. Transfer to telemetry and keep her on heart monitor for the next 24 hours. 2. I agree with stopping the antibiotics. 3. Stop IV fluids. 4. Increase physical activity with hopeful discharge soon. 5. May need substance abuse counseling.
[2017-11-27] MEDS: Enoxaparin Sodium 40 MG/0.4 ML SYRINGE SC SCH (09:11)
[2017-11-27] MEDS: Famotidine 40 MG/4 ML VIAL SLOW IVP SCH ×2 (09:12→21:41)
--- NOTE | 2017-11-27 10:02 | PQF ---
DATE: 11-27-17 ATTN: DR. HUE REZA Please exercise your independent, professional judgment in responding to the clarification form. Clinical indicators are provided on the bottom of this form for your review Please check appropriate box(s) to clarify if the following diagnosis has been ruled in or ruled out: SEPSIS [ ] Ruled in diagnosis [ ] Continue to treat [ ] Resolved [ X ] Ruled out diagnosis [ ] Other diagnosis [ ] Unable to determine In addition, please specify: Present on Admission (POA): [ X] Yes [ ] No [ ] Unable to determine For continuity of documentation, please document condition throughout progress notes and discharge summary. Thank You. CLINICAL INDICATORS - SIGNS / SYMPTOMS / LABS ER DIAGNOSIS: RESPIRATORY FAILURE, LEUCOCYTOSIS, SEPSIS, SUBSTANCE ABUSE H&P: ENCEPHALOPATHY, ACUTE RESPIRATORY FAILURE WITH HYPOXIA, ASPIRATION PNEUMONIA, ACUTE LEUKOCYTOSIS, METABOLIC ACIDOSIS WBC: 18: 22.3 318: 25.6 3-18: 18.4 18: 9.3 LACTIC ACID: 11-24-17: 2.3 RR: 11-26-: 21, 24, 21 RISK FACTORS: H&P: ENCEPHALOPATHY, ACUTE RESPIRATORY FAILURE WITH HYPOXIA, ASPIRATION PNEUMONIA, ACUTE LEUKOCYTOSIS, METABOLIC ACIDOSIS TREATMENTS: (MAR) IVF, ZOSYN, VANCOMYCIN (This form is maintained as a part of the permanent medical record) 2014 [employer] All Rights Reserved HANK [email or web address] Office: [phone] [facility]
--- NOTE | 2017-11-27 10:34 | PDOC.FM ---
Addendum entered and electronically signed by Hai Warner MD 11/27/17 11:29: 1. Subclinical hyperthyrodism. Consider US follow up of thyroid. Original Note: - Subjective Subjective: Patient found in bed, sleeping. She was arousable to verbal. - Objective MAR Reviewed: Yes Vital Signs & Weight: Vital Signs (12 hours) Temp Pulse Resp Pulse Ox 11/27/17 08:00 98.7 F 73 18 100 11/27/17 04:00 98.3 F 11/27/17 00:00 98.3 F Weight Admit Weight 70.2 kg Weight 73.1 kg Most Recent Monitor Data Heart Rate from ECG 83 NIBP 119/81 NIBP BP-Mean 92 Respiration from ECG 23 SpO2 100 I&O: 11/26/17 11/27/17 11/28/17 06:59 06:59 06:59 Intake Total 3371 3449.5 Output Total 2083 3835 Balance 1288 -385.5 Result Diagrams: 11/27/17 04:26 11/27/17 04:26 <Hai Warner - Last Filed: 11/27/17 10:32> - Objective Vital Signs & Weight: Vital Signs (12 hours) Temp Pulse Pulse Resp BP Pulse Ox Pulse Ox 11/28/17 16:00 98.1 F 11/28/17 15:15 74 108/70 98 11/28/17 12:00 98 F 11/28/17 08:00 98.1 F 82 21 H 100 Weight Admit Weight 70.2 kg Weight 68.8 kg Most Recent Monitor Data Heart Rate from ECG 76 NIBP 108/70 NIBP BP-Mean 87 Respiration from ECG 23 SpO2 99 I&O: 11/27/17 11/28/17 11/29/17 06:59 06:59 06:59 Intake Total 3449.5 2939 1823 Output Total 3835 4960 1730 Balance -385.5 -2020 Result Diagrams: 11/27/17 04:26 11/28/17 04:24 <Radha Baez - Last Filed: 11/28/17 19:53> Phys Exam - Physical Examination Constitutional: NAD HEENT: moist MMs Neck: no nodes, supple Respiratory: no wheezing, no rales, no rhonchi Cardiovascular: RRR Gastrointestinal: soft, no distention, positive bowel sounds Musculoskeletal: no edema Neurological: moves all 4 limbs Lymphatic: no nodes Psychiatric: A&O x 3 Skin: no rash <Hai Warner - Last Filed: 11/27/17 10:32> Dx/Plan (1) Polysubstance abuse Code(s): F19.10 - OTHER PSYCHOACTIVE SUBSTANCE ABUSE, UNCOMPLICATED Status: Acute Plan: Positive for cocaine and benzo. Consider suicide as possibility, will consult MR No sign of withdrawal at this time. (2) Encephalopathy Code(s): G93.40 - ENCEPHALOPATHY, UNSPECIFIED Status: Acute Plan: Dx includes infectious vs substance abuse. Covered with abx for infection. Sedation stopped yesterday morning. Patient is still sleepy, like from cocaine or previous sedative. Will continue to monitor. (3) Aspiration pneumonia due to inhalation of vomitus Code(s): J69.0 - PNEUMONITIS DUE TO INHALATION OF FOOD AND VOMIT Status: Suspected Plan: Has been afebrile, breathing well and culture negative. Abx dc. Will continue to monitor. (4) Cardiac enzymes elevated Code(s): R74.8 - ABNORMAL LEVELS OF OTHER SERUM ENZYMES Status: Acute Plan: Cardiac enzyme dropped with repeat labs. Likely patient had demand ischemia. (5) Hyperglycemia Code(s): R73.9 - HYPERGLYCEMIA, UNSPECIFIED Status: Acute Plan: At this time resolved. Unlikely to have underlying diabetes. Dc accucheck (6) Acute respiratory failure with hypoxia Code(s): J96.01 - ACUTE RESPIRATORY FAILURE WITH HYPOXIA Status: Acute Plan: Patient extubated, is doing well on RA. <Hai Warner - Last Filed: 11/27/17 10:32> Attending Addendum - Attending Addendum Date/Time: 11/28/171951 I personally evaluated the patient and discussed the management with Dr. Warner on . I agree with the History, Examination, Assessment and Plan documented above with any addition or exceptions noted below. The patient is still very sleepy. Continue supportive care. Will need [facility] consult when more awake. <Radha Baez - Last Filed: 11/28/17 19:53>
--- NOTE | 2017-11-27 20:22 | EKG ---
Test Reason : URGENT Blood Pressure : / mmHG Vent. Rate : 075 BPM Atrial Rate : 075 BPM P-R Int : 138 ms QRS Dur : 086 ms QT Int : 448 ms P-R-T Axes : 008 078 102 degrees QTc Int : 500 ms Normal sinus rhythm Prolonged QT Abnormal ECG When compared with ECG of 24-NOV-2017 20:42, (Unconfirmed) Nonspecific T wave abnormality no longer evident in Inferior leads T wave inversion less evident in Anterior leads T wave inversion now evident in Lateral leads Confirmed by LASHON DELUNA, DR. Parham (4) on 11/27/2017 8:22:14 PM Referred By: JAKE Confirmed By:DR. Prasad OATES MD
[2017-11-27] MEDS: Ondansetron HCl/PF 4 MG/2 ML Vial IVP PRN (21:40)
[2017-11-28 00:57] VITALS: BMI 27.9
[2017-11-28] MEDS: Ondansetron HCl/PF 4 MG/2 ML Vial IVP PRN (05:08)
[2017-11-28 05:33] LABS: Anion Gap 9 mmol/L (10-20); BUN (Urea Nitrogen) Less than 4 mg/dL (7.0-18.7); Calc. Creatinine Clearance 129 mL/min (70-130); Calcium 9.1 mg/dL (7.8-10.44); Carbon Dioxide 25 mmol/L (22-29); Chloride 108 mmol/L (98-107); Estimated GFR-MDRD Greater than 90; Glucose 140 mg/dL (70-105); Potassium 3.7 mmol/L (3.5-5.1); Sodium 138 mmol/L (136-145)
--- NOTE | 2017-11-28 07:49 | PDOC.FM ---
- Subjective Subjective: Patient found in bed, more awake then previously. When asked about the night of admission, she stated multiple time that she was not trying to hurt herself. Denies any complaint overnight including pain, SOB, fever. She has been out of bed and ambulating per nursing. She had some nausea per nursing and it was resolved with zofran. - Objective MAR Reviewed: Yes Vital Signs & Weight: Vital Signs (12 hours) Temp Pulse Resp Pulse Ox 11/28/17 04:00 98.2 F 11/28/17 00:00 98.3 F 11/27/17 21:30 98.3 F 84 25 H 96 Weight Admit Weight 70.2 kg Weight 68.8 kg Most Recent Monitor Data Heart Rate from ECG 68 NIBP 120/73 NIBP BP-Mean 89 Respiration from ECG 27 SpO2 98 I&O: 11/27/17 11/28/17 11/29/17 06:59 06:59 06:59 Intake Total 3449.5 2593 Output Total 3835 4610 Balance -385.5 Result Diagrams: 11/27/17 04:26 11/28/17 04:24 <Hai Warner M - Last Filed: 11/28/17 07:46> - Objective Vital Signs & Weight: Vital Signs (12 hours) Temp Pulse Resp Pulse Ox 11/28/17 08:00 98.1 F 82 21 H 100 11/28/17 04:00 98.2 F 11/28/17 00:00 98.3 F Weight Admit Weight 70.2 kg Weight 68.8 kg Most Recent Monitor Data Heart Rate from ECG 68 NIBP 117/76 NIBP BP-Mean 84 Respiration from ECG 25 SpO2 97 I&O: 11/27/17 11/28/17 11/29/17 06:59 06:59 06:59 Intake Total 3449.5 2939 Output Total 3835 4960 Balance -385.5 -2020 Result Diagrams: 11/27/17 04:26 11/28/17 04:24 <Radha Baez - Last Filed: 11/28/17 10:40> Phys Exam - Physical Examination Constitutional: NAD HEENT: moist MMs Neck: no nodes, supple Respiratory: no wheezing, no rales, no rhonchi, clear to auscultation bilateral Cardiovascular: no significant murmur, no rub Gastrointestinal: soft, no distention, positive bowel sounds Musculoskeletal: no edema Neurological: non-focal, moves all 4 limbs Lymphatic: no nodes Psychiatric: normal affect, A&O x 3 Skin: no rash <Hai Warner - Last Filed: 11/28/17 07:46> Dx/Plan (1) Polysubstance abuse Code(s): F19.10 - OTHER PSYCHOACTIVE SUBSTANCE ABUSE, UNCOMPLICATED Status: Acute Plan: Positive for cocaine and benzo. Patient clearly stated today she is not suicidal. Consider transfer to floor. (2) Encephalopathy Code(s): G93.40 - ENCEPHALOPATHY, UNSPECIFIED Status: Acute Plan: Dx includes infectious vs substance abuse. Covered with abx for infection. At this time, patient much more responsive and started ambulating. Will encourage PT/OT and out of bed. (3) Aspiration pneumonia due to inhalation of vomitus Code(s): J69.0 - PNEUMONITIS DUE TO INHALATION OF FOOD AND VOMIT Status: Suspected Plan: Has been afebrile, breathing well and culture negative. Abx dc. Will continue to monitor. (4) Cardiac enzymes elevated Code(s): R74.8 - ABNORMAL LEVELS OF OTHER SERUM ENZYMES Status: Acute Plan: Cardiac enzyme dropped with repeat labs. Likely patient had demand ischemia. (5) Hyperglycemia Code(s): R73.9 - HYPERGLYCEMIA, UNSPECIFIED Status: Acute Plan: At this time resolved. Unlikely to have underlying diabetes. Dc accucheck (6) Acute respiratory failure with hypoxia Code(s): J96.01 - ACUTE RESPIRATORY FAILURE WITH HYPOXIA Status: Acute Plan: Patient extubated, is doing well on RA. <Hai Warner Javi - Last Filed: 11/28/17 07:46> Attending Addendum - Attending Addendum Date/Time: 11/28/17 1039 I personally evaluated the patient and discussed the management with Dr. Warner. I agree with the History, Examination, Assessment and Plan documented above with any addition or exceptions noted below. The patient is awake and alert this morning. She denies suicidality. [facility] will be called. OK to transfer to the floor. <Radha Baez - Last Filed: 11/28/17 10:40>
[2017-11-28] MEDS: Enoxaparin Sodium 40 MG/0.4 ML SYRINGE SC SCH (08:55)
[2017-11-28] MEDS ORDERED: Famotidine 20 MG TAB PO SCH (09:00)
--- NOTE | 2017-11-28 09:45 | PRG ---
DATE OF SERVICE: 11/28/2017 SUBJECTIVE: The patient is doing well. She is conversant this morning and is in no distress. PHYSICAL EXAMINATION: VITAL SIGNS: Temperature is 98.2, pulse 50, blood pressure 117/76 and sats 97%. HEENT: Unremarkable. NECK: No JVD. CHEST: Clear. CARDIAC: S1, S2 regular. ABDOMEN: Soft. EXTREMITIES: No edema. LABORATORY DATA: Sodium 130, potassium 3.7, chloride 108, CO2 25, BUN 4, creatinine 0.6, glucose 140 . ASSESSMENT: 1. Status post endotracheal intubation for acute respiratory failure. 2. Possible cocaine toxicity at the time of admission. If she is reliable in terms of history, it a ppears that her ingestion was actually 48 hours before admission and that her true issue may have bee n either bronchitis or pneumonia. RECOMMENDATIONS: She told me that she is not suicidal. I think she is probably cleared for discharg e. [facility] is supposed to evaluate her prior to that. I have no problem with her being transferred to the floor. Her Rachel catheter can be discontinued.
[2017-11-28] MEDS ORDERED: Acetaminophen 325 MG TAB PO PRN (12:47)
[2017-11-28 17:26] VITALS: TEMP 98.1
[2017-11-28 18:50] VITALS: BP 108/70
--- NOTE | 2017-11-30 22:52 | PQF ---
KARTHIK MENAMAGGIE DO *[place] [id number] CLINICAL DOCUMENTATION CLARIFICATION FORM: POST DISCHARGE Addendum to original discharge summary date: ____ Late entry note date: __ DATE: 11/30/17 ATTN: Dr. Guzman Please exercise your independent, professional judgment in responding to the clarification form. Clinical indicators are provided on the bottom of this form for your review Please check appropriate box(s) for the etilogy of the respiratory failure: [x] Drug poisoning [ ] Aspiration pneumonia [ ] Other diagnosis [ ] Unable to determine CLINICAL INDICATORS - SIGNS / SYMPTOMS / LABS RISK FACTORS TREATMENTS: (This form is maintained as a part of the permanent medical record) 2014 [employer] All Rights Reserved DAYTON Fisher, [email or web address] [phone] [facility]
--- NOTE | 2017-12-02 17:40 | DIS-2 ---
DATE OF ADMISSION: 11/24/2017 DATE OF DISCHARGE: 11/28/2017 ADMITTING ATTENDING: Marcela Osorio D.O. DISCHARGE ATTENDING: Radha Baez M.D. RESIDENT DOCTOR: Hai Warner M.D. CONSULTS: Gonzales Heard M.D., Pulmonology. PROCEDURES: 1. Chest x-ray on 11/24/2017. Impression: Chest x-ray show right mainstem bronchus intubation and pulmonary vascular congestion who have increased density in medial left base. 2. Brain CT on 11/24/2017. Impression: Image per nasal sinuses and mastoid air cell was well aerated. There is a displaced calvarial fracture and no acute intracranial abnormalities. 3. Cervical spine CT. Impression: Image, right lung apex demonstrates interstitial and alveolar opacity with larynx posterior fluid. No cervical fracture or dislocation seen. 4. Repeat chest x-ray on 11/25/2017. Impression: No evidence of acute cardiopulmonary disease. PRIMARY DIAGNOSES: 1. Encephalopathy. 2. Acute respiratory failure with hypoxia. 3. Aspiration pneumonia. 4. Hyperglycemia. 5. Cocaine abuse. 7. Benzodiazepine abuse. 8. Leukocytosis. 9. Metabolic acidosis. 10. Concern for suicide attempt. DISCHARGE MEDICATIONS: The patient was not discharged with any medications. HISTORY OF PRESENT ILLNESS AND HOSPITAL COURSE: This is a 37-year-old female with no past medical history presenting to the ED after being found unresponsive by her daughter. The patient was reported not feeling well over past day and they went to the ED, self-colonization for URI-like symptoms was found to have an elevated WBC and sent home with prescription for azithromycin. The patient apparently was seen by her daughter going to bed and when she came in to check on how her mother was doing found her on her bathroom floor and had vomit and mucus around her mouth. There was no known cause for this. The patient was brought to the ED where she was intubated and lumbar puncture was done. Lumbar puncture did not find anything unusual. Her lab result was pertinent for leukocytosis, lactic acidosis of 2.3 as highest. EKG done, did find a T-wave inversion in lead three, but was all normal sinus rhythm. Chest x -ray found pulmonary vascular congestion with increased density in the medial left base. CT of the head and cervical spine did not find any cause for her acute mentation change. She was admitted to ICU and was intubated for airway protection and she remained intubated for one day. In the meantime, her UDS came back positive for both cocaine and benzo. Over the next few days, her encephalopathy improved and she was taken off of intubation, was placed on room air and on the last day was conversing normally with logical thought. As for her acute respiratory failure, it solved spontaneously with time. . At that time, antibiotics were stopped and the patient was monitored. She did not have any worsening symptoms. So, it was thought that the patient likely may have had a pneumonitis, but has no pneumonia currently. As for hyperglycemia, the patient' s glucose was found elevated on admission of 213 and A1c was done and was found in normal range. Logan that hyperglycemia may have just been a stress response. As for cocaine and benzo abuse, the patient did admit to using those medications, but deny suicidal attempts. She was then seen by [facility] who found that she was safe to go home. As for leukocytosis, this is an issue that resolved, found to be elevated due to stress response and not due to true infection. As for metabolic acidosis, her lactic acidosis trended down with fluid free hydration. DISPOSITION: Stable. DISCHARGE INSTRUCTIONS: 1. Location, to home. 2. Diet, as tolerated. 3. Activity, as tolerated. 4. PCP, the patient was asked to obtain a PCP and was provided with a list of nearby providers as well as a list of addiction and rehabilitation services provider from our welfare case worker. The patient agrees to try and followup with one of those providers. ADALID
== END 2017-11-28 19:35 | disposition home or self-care (01) | DRG 917 ==
LOC: ERS 20:32 → CCU 20:40
PROVIDERS: ADMIT Family Medicine; ATTEND Family Medicine
PROC: 5A1945Z Respiratory Ventilation, 24-96 Consecutive Hours (ICD-10-PCS; principal; 2017-11-24)
PROC: 009U3ZX Drainage of Spinal Canal, Percutaneous Approach, Diagnostic (ICD-10-PCS; 2017-11-24)
DX: T40.5X1A Poisoning by cocaine, accidental (unintentional), initial encounter (principal); J96.01 Acute respiratory failure with hypoxia; J69.0 Pneumonitis due to inhalation of food and vomit; G93.40 Encephalopathy, unspecified; E87.2 Acidosis; T42.4X1A Poisoning by benzodiazepines, accidental (unintentional), initial encounter; F14.10 Cocaine abuse, uncomplicated; F19.10 Other psychoactive substance abuse, uncomplicated; F17.210 Nicotine dependence, cigarettes, uncomplicated; R73.9 Hyperglycemia, unspecified
CPT/HCPCS: 36415; 36416; 51702; 62270; 70450; 71045; 72125; 80048; 80053; 80202; 80306; 80307; 81003; 81015; 81025; 82010; 82553; 82805; 82945; 83036; 83605; 84157; 84436; 84443; 84484; 84703; 85025; 85610; 85730; 87040; 87070; 87086; 87149; 87205; 89051; 93005; 93010; 94002; 94003; 96361; 96365; 96366; 96368; 96374; 96375; 96376; A4216; G8978-GP-CJ; G8979-GP-CJ; G8980-GP-CJ; G9165-GN-CL; G9166-GN-CH; J1650; J2060; J2270; J2405; J2543; J2704; J3010; J3370; J3480; J7050

== ENCOUNTER 2020-03-12 21:13 | Emergency (ER) | payer SELFPAY ==
[2020-03-12] MEDS ORDERED: Morphine 4 MG/ML VIAL ONE (22:23)
--- NOTE | 2020-03-12 23:39 | RAD ---
Exam: XR Knee Rt 4 View STANDARD HISTORY: Right knee pain after injury. COMPARISON: None FINDINGS: No acute fracture, dislocation, or other acute osseous abnormality is identified. IMPRESSION: No acute osseous abnormality is identified.
== END 2020-03-12 23:19 | disposition home or self-care (01) ==
LOC: ERS 21:13
DX: S83.91XA Sprain of unspecified site of right knee, initial encounter (principal); F32.9 Major depressive disorder, single episode, unspecified; F17.210 Nicotine dependence, cigarettes, uncomplicated; X50.9XXA Other and unspecified overexertion or strenuous movements or postures, initial encounter
CPT/HCPCS: J2270

== ENCOUNTER 2020-08-04 20:31 | Emergency (ER) | payer MEDICAID, OTHER ==
[2020-08-04] MEDS ORDERED: HYDROcodone/Acetaminophen 10/325 mg Tablet ONE (21:45)
[2020-08-04] MEDS ORDERED: Ketorolac Tromethamine 30 MG/ML VIAL ONE (21:45)
== END 2020-08-04 22:25 | disposition home or self-care (01) ==
LOC: ERS 20:31
DX: H60.91 Unspecified otitis externa, right ear (principal); F32.9 Major depressive disorder, single episode, unspecified; F17.210 Nicotine dependence, cigarettes, uncomplicated
CPT/HCPCS: 96372; 99282; J1885

== ENCOUNTER 2020-10-05 23:10 | Emergency (ER) | payer OTHER ==
[2020-10-05] MEDS ORDERED: Lorazepam 2 MG/ML VIAL ONE (23:30)
[2020-10-06 00:06] LABS: Hemoglobin 15.2 g/dL (12.0-16.0); Mean Corpuscular HGB CONC 33.1 g/dL (32.0-36.0); Mean Corpuscular Hemoglobin 30.4 pg (27.0-31.0); Mean Corpuscular Volume 91.9 fL (78.0-98.0); Platelet Count 197 thou/uL (130-400)
[2020-10-06 00:13] LABS: BHCG - Serum Negative (NEGATIVE); Pregs Control Background? CLEAR/WHITE (CLR/WHITE); Pregs Control Bar Appear? YES (CONTROL BAR)
[2020-10-06 00:23] LABS: Band 2 % (5-11); Lymphocytes 13 % (21-51); MDiff Complete? YES; Monocytes 4 % (0-10); Neutrophil 81 % (42-75); Platelet Morphology Comment Appears Adequate; RBC Morphology Normal
[2020-10-06 00:29] LABS: ALT (SGPT) 24 U/L (8-55); AST (SGOT) 16 U/L (5-34); Albumin 3.8 g/dL (3.5-5.0); Alkaline Phosphatase 98 U/L (40-110); Anion Gap 18 mmol/L (10-20); BUN (Urea Nitrogen) 14 mg/dL (7.0-18.7); Bilirubin, Total 0.8 mg/dL (0.2-1.2); Calc. Creatinine Clearance 0 mL/min (70-130); Calcium 7.8 mg/dL (7.8-10.44); Carbon Dioxide 17 mmol/L (22-29); Chloride 107 mmol/L (98-107); Globulin 3.4 g/dL (2.4-3.5); Glucose 169 mg/dL (70-105); Protein, Total 7.2 g/dL (6.0-8.3); Sodium 139 mmol/L (136-145)
[2020-10-06 00:31] LABS: Potassium 2.8 mmol/L (3.5-5.1)
[2020-10-06] MEDS ORDERED: Pot Chloride/Pot Bicarb/Cit Ac 25 mEq Effervescent Tablet ONE ×2 (00:40→00:43)
[2020-10-06] MEDS ORDERED: Potassium Chloride 20 MEQ TAB ONE (00:41)
== END 2020-10-06 01:37 | disposition home or self-care (01) ==
LOC: ERS 23:10
DX: F43.0 Acute stress reaction (principal); F41.9 Anxiety disorder, unspecified
CPT/HCPCS: 36415; 71045; 80053; 84484; 84703; 85025; 93005; 96374; J2060

== ENCOUNTER 2021-01-10 19:36 | Emergency (ER) | payer OTHER ==
[2021-01-10 20:30] LABS: #Eosinphils 0.2 thou/uL (0.0-0.7); #Lymphocytes 1.9 thou/uL (1.20-3.40); #Monocytes 0.6 thou/uL (0.11-0.59); #Neutrophils 4.3 thou/uL (1.40-6.50); %Basophils 0.5 % (0.0-1.0); %Eosinophils 2.6 % (0.0-10.0); %Lymphocytes 26.9 % (21.0-51.0); %Monocytes 8.1 % (0.0-10.0); Hemoglobin 13.5 g/dL (12.0-16.0); Mean Corpuscular Hemoglobin 30.9 pg (27.0-31.0); Mean Corpuscular Volume 93.6 fL (78.0-98.0); Mean Platelet Volume 7.7 fL (7.4-10.4); Platelet Count 264 thou/uL (130-400); RBC Distribution Width 11.8 % (11.5-14.5); Red Blood Cell (RBC) Count 4.39 mill/uL (4.20-5.40); White Blood Cell (WBC) Count 6.9 thou/uL (4.8-10.8)
[2021-01-10 20:46] LABS: Anion Gap 12 mmol/L (10-20); BUN (Urea Nitrogen) 10 mg/dL (7.0-18.7); Calc. Creatinine Clearance 0 mL/min (70-130); Carbon Dioxide 25 mmol/L (22-29); Chloride 104 mmol/L (98-107); Potassium 3.8 mmol/L (3.5-5.1); Sodium 137 mmol/L (136-145)
[2021-01-10 20:47] LABS: ALT (SGPT) 16 U/L (8-55); AST (SGOT) 17 U/L (5-34); Albumin 3.9 g/dL (3.5-5.0); Alkaline Phosphatase 111 U/L (40-110); Bilirubin, Total 0.4 mg/dL (0.2-1.2); Calcium 9.2 mg/dL (7.8-10.44); Globulin 3.5 g/dL (2.4-3.5); Glucose 114 mg/dL (70-105); Protein, Total 7.4 g/dL (6.0-8.3)
== END 2021-01-10 21:19 | disposition home or self-care (01) ==
LOC: ERS 19:36
DX: J06.9 Acute upper respiratory infection, unspecified (principal); R07.9 Chest pain, unspecified; F17.210 Nicotine dependence, cigarettes, uncomplicated
CPT/HCPCS: 36415; 71046; 80053; 84484; 85025; 93005

== ENCOUNTER 2021-01-13 00:20 | Emergency (ER) | payer OTHER ==
[2021-01-13] MEDS ORDERED: methylPREDNISolone Sod Succ/PF 125 MG/2 ML VIAL ONE (00:41)
[2021-01-13] MEDS ORDERED: Famotidine/PF 20 mg/2ml Vial ONE (00:41)
[2021-01-13] MEDS ORDERED: Ondansetron PF 4 MG/2 ML Vial ONE (01:27)
== END 2021-01-13 02:05 | disposition home or self-care (01) ==
LOC: ERS 00:20
DX: T78.1XXA Other adverse food reactions, not elsewhere classified, initial encounter (principal); L50.0 Allergic urticaria; F17.210 Nicotine dependence, cigarettes, uncomplicated
CPT/HCPCS: 96374; 96375; J2405; J2930; S0028

== ENCOUNTER 2021-05-12 17:34 | Emergency (ER) | payer OTHER ==
[~2021-05-12 17:34] MED LIST: Iopamidol-370 76% 500 ML 1 ML ONE
[2021-05-12] MEDS ORDERED: Ondansetron PF 4 MG/2 ML Vial ONE (18:01)
[2021-05-12 18:09] LABS: #Eosinphils 0.1 thou/uL (0.0-0.7); #Lymphocytes 1.4 thou/uL (1.20-3.40); #Monocytes 0.7 thou/uL (0.11-0.59); #Neutrophils 3.6 thou/uL (1.40-6.50); %Basophils 0.2 % (0.0-1.0); %Eosinophils 1.1 % (0.0-10.0); %Lymphocytes 24.5 % (21.0-51.0); %Monocytes 11.4 % (0.0-10.0); %Neutrophils 62.8 % (42.0-75.0); Hemoglobin 14.8 g/dL (12.0-16.0); Mean Corpuscular Hemoglobin 31.7 pg (27.0-31.0); Mean Platelet Volume 7.9 fL (7.4-10.4); Platelet Count 221 thou/uL (130-400); RBC Distribution Width 11.7 % (11.5-14.5); Red Blood Cell (RBC) Count 4.69 mill/uL (4.20-5.40); White Blood Cell (WBC) Count 5.7 thou/uL (4.8-10.8)
[2021-05-12] MEDS ORDERED: Ketorolac Tromethamine 30 MG/ML VIAL ONE (18:28)
[2021-05-12] MEDS ORDERED: diphenhydrAMINE 50 MG/ML VIAL ONE (18:28)
[2021-05-12 18:31] LABS: BHCG - Serum Negative (NEGATIVE); Pregs Control Background? CLEAR/WHITE (CLR/WHITE); Pregs Control Bar Appear? YES (CONTROL BAR)
[2021-05-12 18:46] LABS: ALT (SGPT) 34 U/L (8-55); AST (SGOT) 25 U/L (5-34); Albumin 4.3 g/dL (3.5-5.0); Alkaline Phosphatase 110 U/L (40-110); Anion Gap 13 mmol/L (10-20); BUN (Urea Nitrogen) 11 mg/dL (7.0-18.7); Bilirubin, Total 0.3 mg/dL (0.2-1.2); Calc. Creatinine Clearance 0 mL/min (70-130); Calcium 9.4 mg/dL (7.8-10.44); Carbon Dioxide 24 mmol/L (22-29); Chloride 102 mmol/L (98-107); Globulin 3.7 g/dL (2.4-3.5); Glucose 90 mg/dL (70-105); Lipase 49 U/L (8-78); Potassium 3.2 mmol/L (3.5-5.1); Sodium 136 mmol/L (136-145)
[2021-05-12 20:35] LABS: Troponin I Less than 0.010 ng/mL (< 0.028)
[2021-05-12 21:11] LABS: SARS-CoV-2 NAA Rapid Test DETECTED (NotDetected)
== END 2021-05-12 22:30 | disposition home or self-care (01) ==
LOC: ERS 17:34
DX: U07.1 COVID-19 (principal); J45.909 Unspecified asthma, uncomplicated
CPT/HCPCS: 36415; 71045; 71275; 80053; 83690; 84484; 84703; 85025; 93005; 96374; 96375; J1200; J1885; J2405; Q9967; U0002

== ENCOUNTER 2021-05-13 23:09 | Emergency (ER) | payer OTHER ==
[2021-05-13 23:42] LABS: #Eosinphils 0.1 thou/uL (0.0-0.7); #Lymphocytes 1.4 thou/uL (1.20-3.40); #Monocytes 0.5 thou/uL (0.11-0.59); #Neutrophils 3.1 thou/uL (1.40-6.50); %Basophils 0.6 % (0.0-1.0); %Eosinophils 2.8 % (0.0-10.0); %Lymphocytes 27.4 % (21.0-51.0); %Monocytes 10.3 % (0.0-10.0); %Neutrophils 58.9 % (42.0-75.0); Hemoglobin 14.2 g/dL (12.0-16.0); Mean Platelet Volume 7.7 fL (7.4-10.4); Platelet Count 216 thou/uL (130-400); RBC Distribution Width 11.7 % (11.5-14.5); Red Blood Cell (RBC) Count 4.45 mill/uL (4.20-5.40); White Blood Cell (WBC) Count 5.2 thou/uL (4.8-10.8)
[2021-05-13] MEDS ORDERED: Lorazepam 2 MG/ML VIAL ONE (23:51)
[2021-05-13] MEDS ORDERED: diphenhydrAMINE 50 MG/ML VIAL ONE (23:51)
[2021-05-13] MEDS ORDERED: Metoclopramide HCl 10 MG/2 ML VIAL ONE (23:51)
[2021-05-13] MEDS ORDERED: Ketorolac Tromethamine 30 MG/ML VIAL ONE (23:51)
[2021-05-14 00:08] LABS: ALT (SGPT) 27 U/L (8-55); AST (SGOT) 20 U/L (5-34); Albumin 3.7 g/dL (3.5-5.0); Alkaline Phosphatase 98 U/L (40-110); Anion Gap 12 mmol/L (10-20); BUN (Urea Nitrogen) 10 mg/dL (7.0-18.7); Bilirubin, Total 0.2 mg/dL (0.2-1.2); Calc. Creatinine Clearance 0 mL/min (70-130); Calcium 8.6 mg/dL (7.8-10.44); Carbon Dioxide 23 mmol/L (22-29); Chloride 108 mmol/L (98-107); Glucose 113 mg/dL (70-105); Potassium 3.7 mmol/L (3.5-5.1); Protein, Total 6.7 g/dL (6.0-8.3); Sodium 139 mmol/L (136-145)
== END 2021-05-14 01:47 | disposition home or self-care (01) ==
LOC: ERS 23:09
DX: U07.1 COVID-19 (principal); J12.82 Pneumonia due to coronavirus disease 2019; J45.909 Unspecified asthma, uncomplicated
CPT/HCPCS: 36415; 71045; 71275; 80053; 84484; 85025; 85379; 93005; 96365; 96375; J1200; J1885; J2060; J2765; Q9967

== ENCOUNTER 2021-05-15 22:57 | Inpatient (IN) | payer OTHER ==
[2021-05-15] MEDS ORDERED: Dexamethasone 10 MG/ML VIAL ONE (23:16)
[2021-05-15 23:19] LABS: #Eosinphils 0.1 thou/uL (0.0-0.7); #Lymphocytes 1.4 thou/uL (1.20-3.40); #Monocytes 0.5 thou/uL (0.11-0.59); %Basophils 0.4 % (0.0-1.0); %Lymphocytes 19.8 % (21.0-51.0); %Monocytes 7.3 % (0.0-10.0); %Neutrophils 71.6 % (42.0-75.0); Hemoglobin 14.7 g/dL (12.0-16.0); Mean Corpuscular HGB CONC 35.1 g/dL (32.0-36.0); Mean Corpuscular Hemoglobin 31.9 pg (27.0-31.0); Mean Corpuscular Volume 90.7 fL (78.0-98.0); Platelet Count 181 thou/uL (130-400); RBC Distribution Width 11.8 % (11.5-14.5); Red Blood Cell (RBC) Count 4.63 mill/uL (4.20-5.40); White Blood Cell (WBC) Count 6.9 thou/uL (4.8-10.8)
[2021-05-15 23:40] LABS: BHCG - Serum Negative (NEGATIVE); Pregs Control Background? CLEAR/WHITE (CLR/WHITE); Pregs Control Bar Appear? YES (CONTROL BAR)
[2021-05-15 23:41] LABS: Acetaminophen Less than 6.0 mcg/mL (10.0-30.0); Alcohol Less than 10 mg/dL (Less than 10); CK (CPK) 46 U/L (29-168); Salicylate Less than 8.0 mg/dL (15.0-30.0)
[2021-05-15 23:43] LABS: Actual Bicarbonate (HCO3v) 24 mEq/L (22-28); Analyzer IN Cardio ER; Base Excess 1.2 mEq/L (-2.0 to +3.0); Chloride (VBG) 99 mmol/L (98-106); Hemoglobin (Hb) 15.1 g/dL (11.7-15.5); Sodium 135.4 mmol/L (133-146); pH (venous) 7.48 (7.32-7.43)
[2021-05-15 23:45] LABS: Pregnancy Test - Urine (BHCG) Negative (Negative); Pregu Control Background? CLEAR/WHITE (CLR/WHITE); Pregu Control Bar Appear? YES (CONTROL BAR)
[2021-05-15 23:54] LABS: INR-International Normal Ratio 0.9; PTT 31.2 sec (22.9-36.1); Prothrombin Time 12.4 sec (12.0-14.7)
[2021-05-15 23:54] LABS: Amphetamine Not Detected (NotDetected); Barbiturates Screen Not Detected (NotDetected); Benzodiazepine Screen Not Detected (NotDetected); Cocaine Metabolite Screen Not Detected (NotDetected); Methadone Not Detected (NotDetected); Methamphetamine Not Detected (NotDetected); Opiate Screen Not Detected (NotDetected); Oxycodone Screen Not Detected (NotDetected); Phencyclidine (PCP) Not Detected (NotDetected); THC/Cannabinoid Screen Not Detected (NotDetected); Tricyclic Screen Not Detected (NotDetected)
[2021-05-16 00:06] LABS: ALT (SGPT) 26 U/L (8-55); AST (SGOT) 24 U/L (5-34); Albumin 3.9 g/dL (3.5-5.0); Alkaline Phosphatase 88 U/L (40-110); Anion Gap 12 mmol/L (10-20); BUN (Urea Nitrogen) 9 mg/dL (7.0-18.7); Bilirubin, Total 0.3 mg/dL (0.2-1.2); Calc. Creatinine Clearance 0 mL/min (70-130); Calcium 9.3 mg/dL (7.8-10.44); Carbon Dioxide 26 mmol/L (22-29); Chloride 99 mmol/L (98-107); Globulin 3.7 g/dL (2.4-3.5); Glucose 92 mg/dL (70-105); Magnesium 1.6 mg/dL (1.6-2.6); Potassium 3.2 mmol/L (3.5-5.1); Protein, Total 7.6 g/dL (6.0-8.3); Sodium 134 mmol/L (136-145)
[2021-05-16] MEDS ORDERED: Electrolyte Replacement Protocol 1 EACH FS SCH (03:00)
[2021-05-16] MEDS ORDERED: Magnesium 2 GM/50 ML 2 GM in Premix Bag 1 BAG IVPB SCH (03:00)
[2021-05-16] MEDS ORDERED: Acetaminophen 500 MG TAB ONE (03:30)
[2021-05-16] MEDS ORDERED: Aspirin 325 MG TAB ONE (03:30)
[2021-05-16] MEDS ORDERED: Aspirin 300 MG Suppository ONE (03:35)
[2021-05-16] MEDS ORDERED: Lorazepam 2 MG/ML VIAL SLOW IVP PRN (04:20)
[2021-05-16] MEDS ORDERED: Vancomycin 1.5 GRAM/300 ML BAG 1.5 GM in Premix Bag 1 BAG IVPB SCH (04:29)
[2021-05-16] MEDS ORDERED: hydrALAZINE 20 MG/ML VIAL SLOW IVP PRN (04:31)
[2021-05-16] MEDS ORDERED: Acetaminophen 325 MG TAB PO PRN (04:31)
[2021-05-16] MEDS ORDERED: Acetaminophen 650 MG Suppository PR PRN (04:31)
[2021-05-16] MEDS ORDERED: Ondansetron ODT 4 MG TAB PO PRN (04:31)
[2021-05-16] MEDS ORDERED: Sodium Chloride 0.9% (PF) 10 ML VIAL FS PRN (04:45)
[2021-05-16] MEDS ORDERED: levETIRAcetam in NS 1,000 MG in Premix Bag 1 BAG IVPB SCH ×2 (04:45→09:00)
[2021-05-16] MEDS ORDERED: Pantoprazole 40 MG VIAL IVP SCH (04:45)
[2021-05-16] MEDS ORDERED: Pantoprazole 40 MG VIAL ONE (04:51)
[2021-05-16] MEDS ORDERED: levETIRAcetam in NS 100 ML ONE (04:51)
[2021-05-16] MEDS ORDERED: Piperacillin/Tazobactam 3.375 GM in Sodium Chloride 0.9% 100 ML IVPB SCH (05:00)
[2021-05-16 05:04] LABS: #Lymphocytes 0.6 thou/uL (1.20-3.40); #Monocytes 0.1 thou/uL (0.11-0.59); #Neutrophils 6.4 thou/uL (1.40-6.50); %Basophils 0.2 % (0.0-1.0); %Eosinophils 0.1 % (0.0-10.0); %Lymphocytes 8.6 % (21.0-51.0); %Monocytes 1.2 % (0.0-10.0); %Neutrophils 89.9 % (42.0-75.0); Hemoglobin 14.4 g/dL (12.0-16.0); Mean Corpuscular HGB CONC 34.2 g/dL (32.0-36.0); Mean Corpuscular Hemoglobin 31.6 pg (27.0-31.0); Mean Corpuscular Volume 92.4 fL (78.0-98.0); Mean Platelet Volume 8.4 fL (7.4-10.4); Platelet Count 178 thou/uL (130-400); RBC Distribution Width 11.7 % (11.5-14.5); Red Blood Cell (RBC) Count 4.55 mill/uL (4.20-5.40); White Blood Cell (WBC) Count 7.1 thou/uL (4.8-10.8)
[2021-05-16] MEDS ORDERED: Magnesium 2 GM/50 ML BAG (IN WATER) ONE (05:15)
[2021-05-16 05:22] LABS: Anion Gap 13 mmol/L (10-20); BUN (Urea Nitrogen) 8 mg/dL (7.0-18.7); Calc. Creatinine Clearance 0 mL/min (70-130); Carbon Dioxide 20 mmol/L (22-29); Chloride 106 mmol/L (98-107); Glucose 135 mg/dL (70-105); Potassium 4.2 mmol/L (3.5-5.1); Sodium 135 mmol/L (136-145)
[2021-05-16] MEDS ORDERED: Piperacillin/Tazobactam 3.375 GM VIAL ONE ×2 (05:34→08:49)
[2021-05-16] MEDS ORDERED: Potassium Chloride 20 MEQ/100 ML PREMIX BAG ONE ×2 (05:56→08:47)
[2021-05-16] MEDS ORDERED: Piperacillin/Tazobactam 4.5 GM in Sodium Chloride 0.9% 100 ML IVPB SCH (06:00)
[2021-05-16] MEDS: Potassium Chloride 20 MEQ in Premix Bag 1 BAG IVPB SCH ×2 (06:04→09:00)
[2021-05-16] MEDS ORDERED: Sodium Chloride 0.9% 100 ML ONE (08:49)
[2021-05-16] MEDS: Ascorbic Acid 500 mg Chewable Tablet PO SCH (09:03)
[2021-05-16] MEDS: Zinc Sulfate 220 MG CAP PO SCH (09:04)
[2021-05-16] MEDS: Aspirin 81 mg Enteric Coated Tablet PO SCH (09:04)
[2021-05-16] MEDS: Cholecalciferol (Vitamin D3) 400 UNITS TAB PO SCH (09:04)
[2021-05-16] MEDS ORDERED: Dexamethasone 4 mg/ml Vial ONE (09:05)
[2021-05-16] MEDS: Dexamethasone 10 MG/ML VIAL SLOW IVP SCH (09:18)
[2021-05-16] MEDS: Piperacillin/Tazobactam 3.375 GM in Sodium Chloride 0.9% 100 ML IVPB SCH ×2 (09:18→22:41)
[2021-05-16 20:49] VITALS: BMI 31.9
[2021-05-16] MEDS: levETIRAcetam in NS 1,000 MG in Premix Bag 1 BAG IVPB SCH (22:02)
[2021-05-16] MEDS: Pantoprazole 40 MG VIAL IVP SCH (22:08)
[2021-05-16] MEDS: Atorvastatin Calcium 40 MG TAB PO SCH (22:08)
[2021-05-16] MEDS: Vancomycin HCl 1.25 GM in Sodium Chloride 0.9% 250 ML 250 ML IVPB SCH (22:41)
[2021-05-16] MEDS ORDERED: Sodium Chloride 0.9% 1,000 ML IV SCH (23:15)
[2021-05-16] MEDS: Ondansetron PF 4 MG/2 ML Vial IVP PRN (23:19)
[2021-05-17] MEDS: Piperacillin/Tazobactam 3.375 GM in Sodium Chloride 0.9% 100 ML IVPB SCH ×3 (01:02→17:32)
[2021-05-17 05:20] LABS: #Lymphocytes 1.6 thou/uL (1.20-3.40); #Monocytes 0.6 thou/uL (0.11-0.59); #Neutrophils 9.6 thou/uL (1.40-6.50); %Basophils 0.1 % (0.0-1.0); %Eosinophils 0.1 % (0.0-10.0); %Lymphocytes 13.6 % (21.0-51.0); %Neutrophils 81.2 % (42.0-75.0); Hemoglobin 14.2 g/dL (12.0-16.0); Mean Corpuscular HGB CONC 33.4 g/dL (32.0-36.0); Mean Corpuscular Hemoglobin 31.3 pg (27.0-31.0); Mean Corpuscular Volume 93.6 fL (78.0-98.0); Mean Platelet Volume 8.7 fL (7.4-10.4); Platelet Count 173 thou/uL (130-400); RBC Distribution Width 11.9 % (11.5-14.5); Red Blood Cell (RBC) Count 4.54 mill/uL (4.20-5.40); White Blood Cell (WBC) Count 11.8 thou/uL (4.8-10.8)
[2021-05-17 05:43] LABS: Anion Gap 13 mmol/L (10-20); BUN (Urea Nitrogen) 11 mg/dL (7.0-18.7); Calc. Creatinine Clearance 133 mL/min (70-130); Calcium 8.6 mg/dL (7.8-10.44); Carbon Dioxide 23 mmol/L (22-29); Cardiac Risk 3.2 (Less than 4.5); Chloride 103 mmol/L (98-107); Cholesterol 137 mg/dl (< 200 Desired); Glucose 99 mg/dL (70-105); HDL Cholesterol 43 mg/dL (>60 Neg Risk); LDL Cholesterol, Calculated 76 mg/dL; Potassium 3.9 mmol/L (3.5-5.1); Sodium 135 mmol/L (136-145); Triglycerides 89 mg/dL (Less than 150)
[2021-05-17] MEDS: Vancomycin HCl 1.25 GM in Sodium Chloride 0.9% 250 ML 250 ML IVPB SCH (06:42)
[2021-05-17] MEDS: Ascorbic Acid 500 mg Chewable Tablet PO SCH (08:19)
[2021-05-17] MEDS: Cholecalciferol (Vitamin D3) 400 UNITS TAB PO SCH (08:20)
[2021-05-17] MEDS: Aspirin 81 mg Enteric Coated Tablet PO SCH (08:20)
[2021-05-17] MEDS: Zinc Sulfate 220 MG CAP PO SCH (08:20)
[2021-05-17 09:01] LABS: Anion Gap 11 mmol/L (10-20); BUN (Urea Nitrogen) 12 mg/dL (7.0-18.7); Calc. Creatinine Clearance 124 mL/min (70-130); Calcium 8.7 mg/dL (7.8-10.44); Carbon Dioxide 28 mmol/L (22-29); Chloride 103 mmol/L (98-107); Glucose 94 mg/dL (70-105); Potassium 3.7 mmol/L (3.5-5.1); Sodium 138 mmol/L (136-145)
[2021-05-17] MEDS: levETIRAcetam in NS 1,000 MG in Premix Bag 1 BAG IVPB SCH ×2 (09:47→21:36)
[2021-05-17] MEDS: Dexamethasone 10 MG/ML VIAL SLOW IVP SCH (09:47)
[2021-05-17] MEDS: Pantoprazole 40 MG VIAL IVP SCH ×2 (10:00→21:42)
[2021-05-17 17:54] LABS: Vancomycin, Trough 7.8 ug/mL
[2021-05-17] MEDS: Atorvastatin Calcium 40 MG TAB PO SCH (21:42)
[2021-05-18] MEDS: Piperacillin/Tazobactam 3.375 GM in Sodium Chloride 0.9% 100 ML IVPB SCH ×3 (01:02→18:34)
[2021-05-18] MEDS: Cholecalciferol (Vitamin D3) 400 UNITS TAB PO SCH (09:14)
[2021-05-18] MEDS: Ascorbic Acid 500 mg Chewable Tablet PO SCH (09:14)
[2021-05-18] MEDS: Aspirin 81 mg Enteric Coated Tablet PO SCH (09:14)
[2021-05-18] MEDS: Dexamethasone 10 MG/ML VIAL SLOW IVP SCH (09:15)
[2021-05-18] MEDS: levETIRAcetam in NS 1,000 MG in Premix Bag 1 BAG IVPB SCH ×2 (09:16→20:27)
[2021-05-18] MEDS: Pantoprazole 40 MG VIAL IVP SCH ×2 (09:16→20:26)
[2021-05-18] MEDS: Zinc Sulfate 220 MG CAP PO SCH (09:17)
[2021-05-18] MEDS: Atorvastatin Calcium 40 MG TAB PO SCH (20:29)
[2021-05-19] MEDS: Piperacillin/Tazobactam 3.375 GM in Sodium Chloride 0.9% 100 ML IVPB SCH ×2 (00:19→08:42)
[2021-05-19] MEDS: Ascorbic Acid 500 mg Chewable Tablet PO SCH (08:42)
[2021-05-19] MEDS: Cholecalciferol (Vitamin D3) 400 UNITS TAB PO SCH (08:42)
[2021-05-19] MEDS: Zinc Sulfate 220 MG CAP PO SCH (08:42)
[2021-05-19] MEDS: Aspirin 81 mg Enteric Coated Tablet PO SCH (08:42)
[2021-05-19] MEDS: levETIRAcetam in NS 1,000 MG in Premix Bag 1 BAG IVPB SCH (08:43)
[2021-05-19] MEDS: Dexamethasone 10 MG/ML VIAL SLOW IVP SCH (08:56)
[2021-05-19] MEDS: Pantoprazole 40 MG VIAL IVP SCH ×2 (09:05→20:03)
[2021-05-19] MEDS: Ondansetron PF 4 MG/2 ML Vial IVP PRN (15:27)
[2021-05-19] MEDS: Atorvastatin Calcium 40 MG TAB PO SCH (20:03)
[2021-05-20] MEDS: Aspirin 81 mg Enteric Coated Tablet PO SCH (09:56)
[2021-05-20] MEDS: Zinc Sulfate 220 MG CAP PO SCH (09:56)
[2021-05-20] MEDS: Cholecalciferol (Vitamin D3) 400 UNITS TAB PO SCH (09:56)
[2021-05-20] MEDS: Ascorbic Acid 500 mg Chewable Tablet PO SCH (09:56)
[2021-05-20] MEDS: Dexamethasone 10 MG/ML VIAL SLOW IVP SCH (09:56)
[2021-05-20] MEDS: Pantoprazole 40 MG VIAL IVP SCH ×2 (09:57→22:07)
[2021-05-20] MEDS: Ondansetron PF 4 MG/2 ML Vial IVP PRN (11:34)
[2021-05-20] MEDS ORDERED: Benzonatate 100 MG CAP PO PRN (15:13)
[2021-05-20] MEDS ORDERED: Guaifenesin DM 100-10/5 ML UDCUP PO PRN (15:15)
[2021-05-20] MEDS: Amoxicillin/Potassium Clav 875 MG TAB PO SCH (22:06)
[2021-05-20] MEDS: Atorvastatin Calcium 40 MG TAB PO SCH (22:07)
[2021-05-21] MEDS: Ondansetron PF 4 MG/2 ML Vial IVP PRN (01:59)
[2021-05-21] MEDS: Aspirin 81 mg Enteric Coated Tablet PO SCH (09:12)
[2021-05-21] MEDS: Zinc Sulfate 220 MG CAP PO SCH (09:12)
[2021-05-21] MEDS: Amoxicillin/Potassium Clav 875 MG TAB PO SCH (09:12)
[2021-05-21] MEDS: Dexamethasone 10 MG/ML VIAL SLOW IVP SCH (09:13)
[2021-05-21] MEDS: Pantoprazole 40 MG VIAL IVP SCH ×2 (09:13→20:29)
[2021-05-21] MEDS: Cholecalciferol (Vitamin D3) 400 UNITS TAB PO SCH (09:13)
[2021-05-21] MEDS: Ascorbic Acid 500 mg Chewable Tablet PO SCH (09:13)
[2021-05-21 10:28] LABS: #Basophils 0.1 thou/uL (0.0-0.2); #Eosinphils 0.1 thou/uL (0.0-0.7); #Lymphocytes 2.7 thou/uL (1.20-3.40); #Monocytes 0.7 thou/uL (0.11-0.59); #Neutrophils 5.3 thou/uL (1.40-6.50); %Basophils 0.7 % (0.0-1.0); %Eosinophils 0.7 % (0.0-10.0); %Lymphocytes 30.4 % (21.0-51.0); %Monocytes 8.3 % (0.0-10.0); %Neutrophils 59.9 % (42.0-75.0); Hemoglobin 15.6 g/dL (12.0-16.0); Mean Corpuscular HGB CONC 33.6 g/dL (32.0-36.0); Mean Corpuscular Hemoglobin 31.1 pg (27.0-31.0); Mean Corpuscular Volume 92.7 fL (78.0-98.0); Mean Platelet Volume 8.2 fL (7.4-10.4); Platelet Count 220 thou/uL (130-400); RBC Distribution Width 11.6 % (11.5-14.5); Red Blood Cell (RBC) Count 5.01 mill/uL (4.20-5.40); White Blood Cell (WBC) Count 8.9 thou/uL (4.8-10.8)
[2021-05-21] MEDS: Atorvastatin Calcium 40 MG TAB PO SCH (20:29)
[2021-05-21] MEDS: Mometasone 100 MCG/Formoterol 5 MCG 120 PUFF INHALER INH SCH (20:29)
[2021-05-22] MEDS: Ondansetron PF 4 MG/2 ML Vial IVP PRN (04:59)
[2021-05-22] MEDS: Mometasone 100 MCG/Formoterol 5 MCG 120 PUFF INHALER INH SCH ×2 (05:37→17:03)
[2021-05-22] MEDS: Ascorbic Acid 500 mg Chewable Tablet PO SCH (10:06)
[2021-05-22] MEDS: Zinc Sulfate 220 MG CAP PO SCH (10:06)
[2021-05-22] MEDS: Dexamethasone 10 MG/ML VIAL SLOW IVP SCH (10:06)
[2021-05-22] MEDS: Aspirin 81 mg Enteric Coated Tablet PO SCH (10:06)
[2021-05-22] MEDS: Cholecalciferol (Vitamin D3) 400 UNITS TAB PO SCH (10:06)
[2021-05-22] MEDS: Pantoprazole 40 MG VIAL IVP SCH ×2 (10:07→20:19)
[2021-05-22] MEDS ORDERED: Piperacillin/Tazobactam 3.375 GM in Sodium Chloride 0.9% 100 ML IVPB SCH ×2 (14:42→16:00)
[2021-05-22] MEDS: Piperacillin/Tazobactam 3.375 GM in Sodium Chloride 0.9% 100 ML IVPB SCH (20:18)
[2021-05-22] MEDS: Atorvastatin Calcium 40 MG TAB PO SCH (20:18)
[2021-05-23] MEDS: Piperacillin/Tazobactam 3.375 GM in Sodium Chloride 0.9% 100 ML IVPB SCH ×2 (04:36→11:26)
[2021-05-23] MEDS: Mometasone 100 MCG/Formoterol 5 MCG 120 PUFF INHALER INH SCH (05:53)
[2021-05-23] MEDS: Pantoprazole 40 MG VIAL IVP SCH (08:17)
[2021-05-23] MEDS: Aspirin 81 mg Enteric Coated Tablet PO SCH (08:17)
[2021-05-23] MEDS: Ascorbic Acid 500 mg Chewable Tablet PO SCH (08:17)
[2021-05-23] MEDS: Cholecalciferol (Vitamin D3) 400 UNITS TAB PO SCH (08:17)
[2021-05-23] MEDS: Zinc Sulfate 220 MG CAP PO SCH (08:17)
[2021-05-23] MEDS: Dexamethasone 10 MG/ML VIAL SLOW IVP SCH (08:19)
[2021-05-23 16:23] VITALS: BP 121/74; TEMP 98
== END 2021-05-23 18:09 | disposition home or self-care (01) | DRG 71 ==
LOC: ERS 22:57 → ERHOLD 05-16 03:13 → 2SW 05-16 20:33 → OBSVTOIN 05-18 14:55
PROVIDERS: ADMIT Student in an Organized Health Care Education/Training Program; ATTEND Internal Medicine
PROC: 8E0ZXY6 Isolation (ICD-10-PCS; principal; 2021-05-16)
PROC: 3E0333Z Introduction of Anti-inflammatory into Peripheral Vein, Percutaneous Approach (ICD-10-PCS; 2021-05-16)
DX: G93.49 Other encephalopathy (principal); K92.0 Hematemesis; B94.8 Sequelae of other specified infectious and parasitic diseases; J45.909 Unspecified asthma, uncomplicated; E87.6 Hypokalemia; R01.1 Cardiac murmur, unspecified; R09.02 Hypoxemia; F19.10 Other psychoactive substance abuse, uncomplicated; E66.9 Obesity, unspecified; Z86.711 Personal history of pulmonary embolism; Z88.5 Allergy status to narcotic agent; Z90.49 Acquired absence of other specified parts of digestive tract; Z98.51 Tubal ligation status; Z68.31 Body mass index [BMI] 31.0-31.9, adult
CPT/HCPCS: 36415; 36416; 51701; 70496; 70498; 70551; 71045; 80048; 80053; 80061; 80202; 80306; 80307; 81025; 82140; 82550; 82728; 82805; 83605; 83735; 84145; 84443; 84484; 84703; 85025; 85379; 85610; 85730; 86140; 87040; 93005; 93306; 94664; 96365; 96366; 96374; 96375; 96376; C9113; G0378; J1100; J1953; J2405; J2543; J3370; J3475; J3480; J3490; J7030; J7050; Q9967

== ENCOUNTER 2021-06-26 21:33 | Inpatient (IN) | payer OTHER ==
[2021-06-26 23:17] LABS: #Eosinphils 0.3 thou/uL (0.0-0.7); #Lymphocytes 2.4 thou/uL (1.20-3.40); #Monocytes 0.6 thou/uL (0.11-0.59); #Neutrophils 5.3 thou/uL (1.40-6.50); %Basophils 0.3 % (0.0-1.0); %Eosinophils 3.2 % (0.0-10.0); %Lymphocytes 28.4 % (21.0-51.0); %Monocytes 6.9 % (0.0-10.0); %Neutrophils 61.2 % (42.0-75.0); Hemoglobin 13.4 g/dL (12.0-16.0); Mean Corpuscular HGB CONC 34.5 g/dL (32.0-36.0); Mean Corpuscular Hemoglobin 31.9 pg (27.0-31.0); Mean Corpuscular Volume 92.4 fL (78.0-98.0); Mean Platelet Volume 8.3 fL (7.4-10.4); Platelet Count 214 thou/uL (130-400); RBC Distribution Width 11.8 % (11.5-14.5); White Blood Cell (WBC) Count 8.6 thou/uL (4.8-10.8)
[2021-06-26 23:35] LABS: SARS-CoV-2 NAA Rapid Test Not Detected (NotDetected)
[2021-06-26 23:47] LABS: Anion Gap 15 mmol/L (10-20); BUN (Urea Nitrogen) 16 mg/dL (7.0-18.7); Calc. Creatinine Clearance 0 mL/min (70-130); Calcium 8.4 mg/dL (7.8-10.44); Carbon Dioxide 21 mmol/L (22-29); Chloride 109 mmol/L (98-107); Glucose 140 mg/dL (70-105); Sodium 141 mmol/L (136-145)
[2021-06-27] MEDS ORDERED: Ketorolac Tromethamine 30 MG/ML VIAL ONE (02:49)
[2021-06-27] MEDS ORDERED: Acetaminophen 325 MG TAB PO PRN (03:56)
[2021-06-27] MEDS ORDERED: Ondansetron ODT 4 MG TAB PO PRN (03:56)
[2021-06-27] MEDS ORDERED: Acetaminophen 500 MG TAB PO PRN (04:43)
[2021-06-27] MEDS ORDERED: Ibuprofen 600 MG TAB PO SCH (04:45)
[2021-06-27] MEDS ORDERED: Gabapentin 300 MG CAP PO SCH (05:00)
[2021-06-27] MEDS ORDERED: Enoxaparin Sodium 40 MG/0.4 ML SYRINGE SC SCH (09:00)
[2021-06-27] MEDS: Ibuprofen 600 MG TAB PO SCH ×3 (09:18→19:52)
[2021-06-27] MEDS ORDERED: Acetaminophen 500 MG TAB PO SCH (18:30)
[2021-06-27] MEDS ORDERED: Lidocaine 4% Topical Sol 50 ML BOT TOP SCH (18:30)
[2021-06-27] MEDS ORDERED: Acetaminophen/Codeine 30-300mg Tablet PO PRN (19:41)
[2021-06-27] MEDS: Famotidine/PF 20 mg/2ml Vial SLOW IVP SCH (20:16)
[2021-06-27] MEDS: Morphine 4 MG/ML VIAL SLOW IVP PRN (20:16)
[2021-06-27] MEDS: Dexamethasone 4 mg/ml Vial SLOW IVP SCH (20:16)
[2021-06-27] MEDS: Gabapentin 300 MG CAP PO SCH (20:25)
[2021-06-27] MEDS: Ondansetron PF 4 MG/2 ML Vial IVP PRN (20:44)
[2021-06-27] MEDS: Senokot S 8.6-50 MG TAB PO SCH (20:56)
[2021-06-27] MEDS ORDERED: Polyethylene Glycol 3350 17 GM Packet PO PRN (21:09)
[2021-06-28] MEDS: Ibuprofen 600 MG TAB PO SCH ×4 (02:37→21:14)
[2021-06-28] MEDS: Dexamethasone 4 mg/ml Vial SLOW IVP SCH ×4 (02:37→21:14)
[2021-06-28 05:31] VITALS: BMI 32.9
[2021-06-28] MEDS ORDERED: Mometasone 100 MCG/Formoterol 5 MCG 120 PUFF INHALER INH PRN (09:11)
[2021-06-28] MEDS: Ondansetron PF 4 MG/2 ML Vial IVP PRN ×2 (09:24→19:29)
[2021-06-28] MEDS: Morphine 4 MG/ML VIAL SLOW IVP PRN ×2 (09:25→19:28)
[2021-06-28] MEDS: Famotidine/PF 20 mg/2ml Vial SLOW IVP SCH ×2 (09:25→21:15)
[2021-06-28] MEDS: Gabapentin 300 MG CAP PO SCH ×2 (09:27→21:12)
[2021-06-28] MEDS: Senokot S 8.6-50 MG TAB PO SCH ×2 (09:27→21:12)
[2021-06-28 10:34] LABS: Anion Gap 13 mmol/L (10-20); BUN (Urea Nitrogen) 11 mg/dL (7.0-18.7); Calc. Creatinine Clearance 126 mL/min (70-130); Calcium 9.4 mg/dL (7.8-10.44); Carbon Dioxide 23 mmol/L (22-29); Chloride 106 mmol/L (98-107); Glucose 149 mg/dL (70-105); Potassium 4.4 mmol/L (3.5-5.1); Sodium 138 mmol/L (136-145)
[2021-06-28] MEDS ORDERED: Magnevist 469MG/ML 20 ML VIAL ONE (10:41)
[2021-06-28] MEDS ORDERED: Atorvastatin Calcium 40 MG TAB PO SCH (21:00)
[2021-06-29] MEDS: Morphine 4 MG/ML VIAL SLOW IVP PRN ×2 (00:36→04:30)
[2021-06-29] MEDS: Ondansetron PF 4 MG/2 ML Vial IVP PRN ×2 (00:38→04:29)
[2021-06-29] MEDS: Ibuprofen 600 MG TAB PO SCH ×3 (03:12→15:18)
[2021-06-29] MEDS: Dexamethasone 4 mg/ml Vial SLOW IVP SCH ×2 (03:12→09:20)
[2021-06-29] MEDS ORDERED: Aspirin 81 mg Enteric Coated Tablet PO SCH (09:00)
[2021-06-29] MEDS: Senokot S 8.6-50 MG TAB PO SCH (09:19)
[2021-06-29] MEDS: Famotidine/PF 20 mg/2ml Vial SLOW IVP SCH (09:19)
[2021-06-29] MEDS: Gabapentin 300 MG CAP PO SCH (09:21)
[2021-06-29] MEDS ORDERED: Famotidine 20 MG TAB PO SCH ×3 (09:30→21:00)
[2021-06-29] MEDS ORDERED: Dexamethasone 4 MG TAB PO SCH (12:00)
[2021-06-29] MEDS ORDERED: Gabapentin 300 MG CAP PO SCH (15:00)
[2021-06-29 15:20] VITALS: BP 116/65; TEMP 97.2
[2021-06-30] MEDS ORDERED: FLU VACC QS2021-22(6MOS UP)/PF 60 MCG/0.5 ML SYRINGE IM ONE (09:00)
== END 2021-06-29 17:30 | disposition home or self-care (01) | DRG 74 ==
LOC: ERS 21:33 → 2NO 06-27 03:17 → OBSVTOIN 06-28 09:59
PROVIDERS: ADMIT Student in an Organized Health Care Education/Training Program; ATTEND Student in an Organized Health Care Education/Training Program
DX: G90.50 Complex regional pain syndrome I, unspecified (principal); G45.9 Transient cerebral ischemic attack, unspecified; M54.12 Radiculopathy, cervical region; M48.02 Spinal stenosis, cervical region; Z20.822 Contact with and (suspected) exposure to COVID-19; U09.9 Post COVID-19 condition, unspecified; J45.909 Unspecified asthma, uncomplicated; F17.210 Nicotine dependence, cigarettes, uncomplicated; G81.91 Hemiplegia, unspecified affecting right dominant side; K59.00 Constipation, unspecified; Z90.49 Acquired absence of other specified parts of digestive tract; Z98.51 Tubal ligation status; Z88.6 Allergy status to analgesic agent; Z79.899 Other long term (current) drug therapy
CPT/HCPCS: 36415; 70450; 70553; 72141; 72146; 72148; 80048; 82085; 82550; 84484; 85025; 85379; 85652; 93005; 96372; 96374; 96375; 96376; A9579; G0378; J1100; J1650; J1885; J2270; J2405; J8540; S0028; U0002

== ENCOUNTER 2021-10-05 13:31 | Outpatient (CLI) | payer OTHER | END 2021-10-05 13:32 | disposition home or self-care (01) | LOC: BICMAMMO 13:31 | PROVIDERS: ATTEND Student in an Organized Health Care Education/Training Program | DX: Z12.31 Encounter for screening mammogram for malignant neoplasm of breast (principal) | CPT/HCPCS: 77067 ==

== ENCOUNTER 2022-01-11 00:10 | Emergency (ER) | payer OTHER ==
[2022-01-11] MEDS ORDERED: Dicyclomine 20 MG TAB ONE (00:56)
[2022-01-11] MEDS ORDERED: Ondansetron PF 4 MG/2 ML Vial ONE (00:56)
[2022-01-11 01:28] LABS: #Basophils 0.1 thou/uL (0.0-0.2); #Eosinphils 0.1 thou/uL (0.0-0.7); #Lymphocytes 1.3 thou/uL (1.20-3.40); #Monocytes 0.4 thou/uL (0.11-0.59); #Neutrophils 4.4 thou/uL (1.40-6.50); %Basophils 0.8 % (0.0-1.0); %Eosinophils 0.8 % (0.0-10.0); %Lymphocytes 21.1 % (21.0-51.0); %Neutrophils 70.3 % (42.0-75.0); Hemoglobin 14.8 g/dL (12.0-16.0); Mean Corpuscular HGB CONC 33.2 g/dL (32.0-36.0); Mean Corpuscular Hemoglobin 31.5 pg (27.0-31.0); Mean Corpuscular Volume 94.8 fL (78.0-98.0); Mean Platelet Volume 7.5 fL (7.4-10.4); Platelet Count 229 thou/uL (130-400); RBC Distribution Width 12.1 % (11.5-14.5); White Blood Cell (WBC) Count 6.2 thou/uL (4.8-10.8)
[2022-01-11 01:58] LABS: ALT (SGPT) 33 U/L (8-55); AST (SGOT) 38 U/L (5-34); Albumin 3.6 g/dL (3.5-5.0); Alkaline Phosphatase 92 U/L (40-110); Anion Gap 15 mmol/L (10-20); BUN (Urea Nitrogen) 15 mg/dL (7.0-18.7); Bilirubin, Total 0.8 mg/dL (0.2-1.2); Calc. Creatinine Clearance 0 mL/min (70-130); Calcium 8.2 mg/dL (7.8-10.44); Carbon Dioxide 19 mmol/L (22-29); Chloride 105 mmol/L (98-107); Globulin 3.1 g/dL (2.4-3.5); Glucose 119 mg/dL (70-105); Lipase 17 U/L (8-78); Potassium 3.2 mmol/L (3.5-5.1); Protein, Total 6.7 g/dL (6.0-8.3); Sodium 136 mmol/L (136-145)
[2022-01-11 03:56] LABS: Bilirubin Negative (Negative); Blood, Urine Negative (Negative); Clarity Turbid (Clear); Glucose, Urine (Dipstick) Normal (Negative); Ketone, Urine Negative (Negative); Leukocyte Negative Leu/uL (Negative); Nitrite Negative (Negative); Protein, Urine (Dipstick) 10 mg/dL (Neg-Trace); Specific Gravity, Urine 1.035 (1.002-1.036); pH, Urine 5.5 (5.0-9.0)
[2022-01-11 04:05] LABS: Pregnancy Test - Urine (BHCG) Negative (Negative); Pregu Control Background? CLEAR/WHITE (CLR/WHITE); Pregu Control Bar Appear? YES (CONTROL BAR); Specific Gravity 1.035 (1.002-1.036)
== END 2022-01-11 05:36 | disposition home or self-care (01) ==
LOC: ERS 00:10
DX: R11.2 Nausea with vomiting, unspecified (principal); J45.909 Unspecified asthma, uncomplicated; Z86.16 Personal history of COVID-19; Z79.899 Other long term (current) drug therapy
CPT/HCPCS: 36415; 74177; 80053; 81003; 81025; 83690; 85025; 96361; 96374; J2405

== ENCOUNTER 2022-02-09 16:53 | Inpatient (IN) | payer OTHER ==
[2022-02-09] MEDS ORDERED: Fentanyl 100 MCG/2 ML VIAL ONE ×2 (17:51→20:38)
[2022-02-09 17:59] LABS: #Eosinphils 0.1 thou/uL (0.0-0.7); #Lymphocytes 2.5 thou/uL (1.20-3.40); #Monocytes 0.5 thou/uL (0.11-0.59); %Basophils 0.2 % (0.0-1.0); %Eosinophils 1.2 % (0.0-10.0); %Lymphocytes 27.5 % (21.0-51.0); %Neutrophils 66.1 % (42.0-75.0); Hemoglobin 14.5 g/dL (12.0-16.0); Mean Corpuscular HGB CONC 32.3 g/dL (32.0-36.0); Platelet Count 240 thou/uL (130-400); RBC Distribution Width 11.7 % (11.5-14.5); Red Blood Cell (RBC) Count 4.66 mill/uL (4.20-5.40); White Blood Cell (WBC) Count 9.1 thou/uL (4.8-10.8)
[2022-02-09 18:03] LABS: BHCG - Serum Negative (NEGATIVE); Pregs Control Background? CLEAR/WHITE (CLR/WHITE); Pregs Control Bar Appear? YES (CONTROL BAR)
[2022-02-09 18:09] LABS: ALT (SGPT) 20 U/L (8-55); AST (SGOT) 16 U/L (5-34); Albumin 4.1 g/dL (3.5-5.0); Alkaline Phosphatase 107 U/L (40-110); Anion Gap 11 mmol/L (10-20); BUN (Urea Nitrogen) 11 mg/dL (7.0-18.7); Bilirubin, Total 0.3 mg/dL (0.2-1.2); Calc. Creatinine Clearance 0 mL/min (70-130); Calcium 9.2 mg/dL (7.8-10.44); Carbon Dioxide 24 mmol/L (22-29); Chloride 106 mmol/L (98-107); Globulin 3.7 g/dL (2.4-3.5); Glucose 90 mg/dL (70-105); Protein, Total 7.8 g/dL (6.0-8.3); Sodium 137 mmol/L (136-145)
[2022-02-09] MEDS ORDERED: HYDROmorphone 0.5 MG/0.5 ML SYRINGE ONE (18:48)
[2022-02-09] MEDS ORDERED: Ondansetron ODT 4 MG TAB PO PRN (21:12)
[2022-02-09] MEDS ORDERED: Lidocaine 5% Patch TD PRN (21:57)
[2022-02-09 22:02] VITALS: BMI 32.3
[2022-02-10] MEDS: Acetaminophen 500 MG TAB PO PRN ×3 (01:38→20:03)
[2022-02-10] MEDS: Ibuprofen 600 MG TAB PO PRN ×3 (01:39→20:04)
[2022-02-10] MEDS ORDERED: Pregabalin 75 MG CAP PO SCH (02:00)
[2022-02-10] MEDS: Pregabalin 50 MG CAP PO SCH ×2 (08:21→20:03)
[2022-02-10] MEDS ORDERED: Venlafaxine HCl 25 MG TAB PO SCH (09:00)
[2022-02-10] MEDS ORDERED: Diazepam 5 MG TAB PO PRN (12:11)
[2022-02-10 14:39] LABS: Thyroid Stimulating Hormone 0.6905 uIU/mL (0.35-4.94)
[2022-02-10 14:45] LABS: Vitamin B12 224 pg/mL (211-911)
[2022-02-10 14:51] LABS: HIV (1/2) Antibody/Antigen Non-Reactive (NonReactive); HIV 1/2 INDEX 0.07 S/CO (<1.00); Hep C IgG Ab Non-Reactive (NonReactive); Hep C Index 0.26 S/CO (0-0.79)
[2022-02-10] MEDS ORDERED: Cyclobenzaprine 10 MG TAB PO SCH ×2 (15:30→20:30)
[2022-02-10 15:41] LABS: Amphetamine Not Detected (NotDetected); Barbiturates Screen Not Detected (NotDetected); Benzodiazepine Screen Not Detected (NotDetected); Cocaine Metabolite Screen Detected (NotDetected); Methadone Not Detected (NotDetected); Methamphetamine Not Detected (NotDetected); Opiate Screen Not Detected (NotDetected); Oxycodone Screen Not Detected (NotDetected); Phencyclidine (PCP) Not Detected (NotDetected); THC/Cannabinoid Screen Detected (NotDetected); Tricyclic Screen Not Detected (NotDetected)
[2022-02-10] MEDS: Venlafaxine HCl 25 MG TAB PO SCH (20:04)
[2022-02-11] MEDS ORDERED: Promethazine HCl 25 MG/ML VIAL IM PRN (09:50)
[2022-02-11] MEDS ORDERED: Promethazine HCl 25 MG/ML VIAL IVPB PRN (09:50)
[2022-02-11] MEDS ORDERED: Ondansetron HCl/PF 4 MG/2 ML Vial IVP PRN (09:50)
[2022-02-11] MEDS: Pregabalin 50 MG CAP PO SCH ×2 (11:05→20:30)
[2022-02-11 11:48] LABS: Syphilis Antibody Nonreactive (Nonreactive)
[2022-02-11] MEDS: Acetaminophen 500 MG TAB PO PRN (14:48)
[2022-02-11] MEDS: Cyclobenzaprine 10 MG TAB PO PRN (14:49)
[2022-02-11] MEDS: Ibuprofen 600 MG TAB PO PRN ×2 (14:49→20:30)
[2022-02-11] MEDS: Venlafaxine HCl 25 MG TAB PO SCH (20:31)
[2022-02-12] MEDS: Pregabalin 50 MG CAP PO SCH ×3 (10:16→21:03)
[2022-02-12] MEDS: Acetaminophen 500 MG TAB PO PRN ×2 (10:46→23:45)
[2022-02-12] MEDS ORDERED: Ondansetron PF 4 MG/2 ML Vial ONE (14:00)
[2022-02-12] MEDS ORDERED: Lidocaine 1% PF 5 ML VIAL ONE (14:00)
[2022-02-12] MEDS ORDERED: PROPOFOL 200 MG/20 ML VIAL ONE (14:00)
[2022-02-12] MEDS ORDERED: Promethazine HCl 25 MG/ML VIAL IVPB PRN (15:12)
[2022-02-12] MEDS ORDERED: HYDROmorphone 2 MG/ML VIAL SLOW IVP PRN (15:12)
[2022-02-12] MEDS ORDERED: Ondansetron HCl/PF 4 MG/2 ML Vial IVP PRN (15:12)
[2022-02-12] MEDS ORDERED: Promethazine HCl 25 MG/ML VIAL IM PRN (15:12)
[2022-02-12] MEDS ORDERED: Fentanyl 100 MCG/2 ML VIAL ONE (15:16)
[2022-02-12] MEDS: Venlafaxine HCl 25 MG TAB PO SCH (21:03)
[2022-02-12] MEDS: Cyclobenzaprine 10 MG TAB PO PRN (23:45)
[2022-02-13] MEDS: Ibuprofen 600 MG TAB PO PRN ×2 (02:19→15:28)
[2022-02-13] MEDS: Cyclobenzaprine 10 MG TAB PO PRN ×2 (05:00→20:19)
[2022-02-13] MEDS: Acetaminophen 500 MG TAB PO PRN ×2 (05:00→20:19)
[2022-02-13] MEDS: Pregabalin 50 MG CAP PO SCH (09:33)
[2022-02-13 11:50] LABS: CK (CPK) 42 U/L (29-168); CRP (Inflammatory) Less than 0.50 mg/dL (= or < 0.5)
[2022-02-13] MEDS: Pregabalin 75 MG CAP PO SCH (20:18)
[2022-02-13] MEDS: Venlafaxine HCl 25 MG TAB PO SCH (20:19)
[2022-02-13 20:49] LABS: Bacteria/HPF 2+ HPF (None Seen); Bilirubin Negative (Negative); Blood, Urine 2+ (Negative); Clarity Clear (Clear); Glucose, Urine (Dipstick) Normal (Negative); Ketone, Urine Negative (Negative); Leukocyte 500 Leu/uL (Negative); Nitrite Negative (Negative); Protein, Urine (Dipstick) Negative (Neg-Trace); RBC/HPF 0-3 HPF (0-3); Squamous Epithelial 0-3 HPF (0-3); Urobilinogen Normal mg/dL (Less than 2); WBC/HPF 21-50 HPF (0-3)
[2022-02-13 20:52] LABS: Urine Culture Reflex Yes Yes
[2022-02-14] MEDS: Cyclobenzaprine 10 MG TAB PO PRN ×2 (05:45→14:50)
[2022-02-14] MEDS: Acetaminophen 500 MG TAB PO PRN ×2 (05:45→14:48)
[2022-02-14] MEDS: Ibuprofen 600 MG TAB PO PRN ×2 (05:45→14:47)
[2022-02-14] MEDS ORDERED: Dexamethasone 10 MG in Sodium Chloride 0.9% 50 ML IVPB SCH (09:00)
[2022-02-14] MEDS ORDERED: Oxybutynin ER 5 MG TAB PO SCH (09:30)
[2022-02-14] MEDS: Dexamethasone 10 MG/ML VIAL SLOW IVP SCH (10:18)
[2022-02-14] MEDS: Pregabalin 75 MG CAP PO SCH ×2 (10:18→21:06)
[2022-02-14] MEDS ORDERED: Ibuprofen 600 MG TAB PO SCH (12:00)
[2022-02-14] MEDS: Venlafaxine HCl 25 MG TAB PO SCH (21:06)
[2022-02-15] MEDS: Ibuprofen 600 MG TAB PO PRN (04:47)
[2022-02-15] MEDS: Acetaminophen 500 MG TAB PO PRN ×3 (04:48→23:54)
[2022-02-15] MEDS: Cyclobenzaprine 10 MG TAB PO PRN ×3 (04:50→23:54)
[2022-02-15 06:25] LABS: #Lymphocytes 1.7 thou/uL (1.20-3.40); #Monocytes 0.5 thou/uL (0.11-0.59); #Neutrophils 13.6 thou/uL (1.40-6.50); %Basophils 0.1 % (0.0-1.0); %Eosinophils 0.1 % (0.0-10.0); %Lymphocytes 10.8 % (21.0-51.0); %Monocytes 3.1 % (0.0-10.0); %Neutrophils 85.8 % (42.0-75.0); Hemoglobin 14.6 g/dL (12.0-16.0); Mean Corpuscular HGB CONC 33.3 g/dL (32.0-36.0); Mean Corpuscular Hemoglobin 31.2 pg (27.0-31.0); Mean Corpuscular Volume 93.6 fL (78.0-98.0); Platelet Count 264 thou/uL (130-400); RBC Distribution Width 11.6 % (11.5-14.5); White Blood Cell (WBC) Count 15.8 thou/uL (4.8-10.8)
[2022-02-15 07:08] LABS: Anion Gap 11 mmol/L (10-20); BUN (Urea Nitrogen) 13 mg/dL (7.0-18.7); Calc. Creatinine Clearance 113 mL/min (70-130); Calcium 8.9 mg/dL (7.8-10.44); Carbon Dioxide 25 mmol/L (22-29); Chloride 103 mmol/L (98-107); Glucose 131 mg/dL (70-105); Potassium 4.1 mmol/L (3.5-5.1); Sodium 135 mmol/L (136-145)
[2022-02-15] MEDS: Pregabalin 75 MG CAP PO SCH ×2 (08:53→20:49)
[2022-02-15] MEDS: Dexamethasone 10 MG/ML VIAL SLOW IVP SCH (08:53)
[2022-02-15] MEDS: Sulfameth/Trimethoprim DS 800-160mg TAB PO SCH ×2 (08:54→20:49)
[2022-02-15] MEDS ORDERED: Oxybutynin ER 5 MG TAB PO SCH (09:00)
[2022-02-15] MEDS: Venlafaxine HCl 25 MG TAB PO SCH (20:49)
[2022-02-16] MEDS: Sulfameth/Trimethoprim DS 800-160mg TAB PO SCH ×2 (10:27→20:37)
[2022-02-16] MEDS: Dexamethasone 10 MG/ML VIAL SLOW IVP SCH (10:28)
[2022-02-16] MEDS: Pregabalin 75 MG CAP PO SCH ×2 (10:28→20:37)
[2022-02-16] MEDS: Cyclobenzaprine 10 MG TAB PO PRN ×2 (10:42→20:39)
[2022-02-16] MEDS: Acetaminophen 500 MG TAB PO PRN (16:44)
[2022-02-16] MEDS: Venlafaxine HCl 25 MG TAB PO SCH (20:38)
[2022-02-17] MEDS: Acetaminophen 500 MG TAB PO PRN (06:28)
[2022-02-17] MEDS: Cyclobenzaprine 10 MG TAB PO PRN (06:28)
[2022-02-17 07:40] VITALS: TEMP 98.3
[2022-02-17] MEDS: Dexamethasone 10 MG/ML VIAL SLOW IVP SCH (10:04)
[2022-02-17] MEDS: Sulfameth/Trimethoprim DS 800-160mg TAB PO SCH (10:04)
[2022-02-17] MEDS: Pregabalin 75 MG CAP PO SCH (10:05)
[2022-02-17 11:21] VITALS: BP 122/80
== END 2022-02-17 16:03 | disposition home or self-care (01) | DRG 880 ==
LOC: ERS 16:53 → SURG B 20:15 → OBSVTOIN 02-11 11:07
PROVIDERS: ADMIT Student in an Organized Health Care Education/Training Program; ATTEND Family Medicine
DX: F44.4 Conversion disorder with motor symptom or deficit (principal); M50.022 Cervical disc disorder at C5-C6 level with myelopathy; Z20.822 Contact with and (suspected) exposure to COVID-19; F14.10 Cocaine abuse, uncomplicated; F41.9 Anxiety disorder, unspecified; F32.A Depression, unspecified; M48.02 Spinal stenosis, cervical region; F12.10 Cannabis abuse, uncomplicated; F13.10 Sedative, hypnotic or anxiolytic abuse, uncomplicated; R74.8 Abnormal levels of other serum enzymes; N28.89 Other specified disorders of kidney and ureter; T38.0X5A Adverse effect of glucocorticoids and synthetic analogues, initial encounter; D72.829 Elevated white blood cell count, unspecified; M47.816 Spondylosis without myelopathy or radiculopathy, lumbar region; R82.71 Bacteriuria; Z86.16 Personal history of COVID-19; Z88.5 Allergy status to narcotic agent; Z90.49 Acquired absence of other specified parts of digestive tract; Z98.51 Tubal ligation status; Z71.51 Drug abuse counseling and surveillance of drug abuser; Z79.899 Other long term (current) drug therapy
CPT/HCPCS: 36415; 70553; 72141; 72148; 80048; 80053; 80306; 81001; 82550; 82607; 83605; 84443; 84703; 85025; 85652; 86140; 86780; 86803; 87040; 87077; 87086; 87186; 87389; 94760; 96374; 96375; 96376; G0378; J1100; J1170; J2405; J2704; J3010; U0003; U0005

== ENCOUNTER 2022-04-04 12:43 | Outpatient (CLI) | payer OTHER ==
[2022-04-04 15:06] LABS: Hemoglobin 14.5 g/dL (12.0-15.5); Mean Corpuscular Hemoglobin 30.4 pg (27.0-33.0); Mean Corpuscular Volume 89.5 fl (81.6-98.3); Mean Platelet Volume 10.6 fl (7.4-10.4); Platelet Count 307 10x3/uL (150-450); RBC Distribution Width 12.1 % (11.5-14.5); Red Blood Cell (RBC) Count 4.77 10x6/uL (3.90-5.03); White Blood Cell (WBC) Count 6.8 10x3/uL (3.5-10.5)
[2022-04-04 15:29] LABS: Anion Gap 13 mmol/L (10-20); BUN (Urea Nitrogen) 13 mg/dL (7.0-18.7); Calc. Creatinine Clearance 0 mL/min (70-130); Calcium 9.8 mg/dL (7.8-10.44); Carbon Dioxide 23 mmol/L (22-29); Chloride 107 mmol/L (98-107); Estimated GFR 97; Glucose 90 mg/dL (70-105); Potassium 4.5 mmol/L (3.5-5.1); Sodium 138 mmol/L (136-145)
== END 2022-04-04 12:44 | disposition home or self-care (01) ==
LOC: LABBT 12:43
PROVIDERS: ATTEND Neurological Surgery
DX: Z01.818 Encounter for other preprocedural examination (principal); M47.12 Other spondylosis with myelopathy, cervical region; Z20.822 Contact with and (suspected) exposure to COVID-19
CPT/HCPCS: 80048; 85027; 87811; 93005; 93010

== ENCOUNTER 2022-04-09 07:09 | Observation (INO) | payer OTHER ==
[2022-04-05 12:22] VITALS: BMI 34.3
[2022-04-09] MEDS ORDERED: fentaNYL Citrate/PF 100 MCG/2 ML SYRINGE ONE ×2 (10:07→11:33)
[2022-04-09] MEDS ORDERED: Sodium Chloride 0.9% 100 ML ONE (10:25)
[2022-04-09] MEDS ORDERED: CEFAZOLIN 2 GM VIAL ONE (10:25)
[2022-04-09] MEDS ORDERED: PROPOFOL 200 MG/20 ML VIAL ONE (10:45)
[2022-04-09] MEDS ORDERED: Ondansetron PF 4 MG/2 ML Vial ONE ×2 (10:45→19:37)
[2022-04-09] MEDS ORDERED: Rocuronium Bromide 10 MG/ML (10ML VIAL) ONE (10:45)
[2022-04-09] MEDS ORDERED: Dexamethasone 20 MG/5 ML VIAL ONE (10:45)
[2022-04-09] MEDS ORDERED: Lidocaine 1% PF 5 ML VIAL ONE (10:45)
[2022-04-09] MEDS ORDERED: Glycopyrrolate 0.2 MG/ML 5 ML SYRINGE ONE (10:45)
[2022-04-09] MEDS ORDERED: Promethazine HCl 25 MG/ML VIAL ONE (12:08)
[2022-04-09] MEDS ORDERED: Fentanyl 100 MCG/2 ML VIAL ONE ×3 (12:17→14:26)
[2022-04-09] MEDS ORDERED: HYDROmorphone 2 MG/ML VIAL ONE (13:25)
[2022-04-09] MEDS ORDERED: HYDROcodone/Acetaminophen 5/325 mg Tablet ONE (16:21)
[2022-04-09] MEDS ORDERED: Morphine 2 MG/ML VIAL ONE ×4 (16:21→19:37)
[2022-04-09] MEDS ORDERED: Cyclobenzaprine 10 MG TAB ONE (16:52)
[2022-04-09] MEDS ORDERED: Gabapentin 300 MG CAP ONE (17:33)
[2022-04-09] MEDS ORDERED: Dexamethasone 4 mg/ml Vial ONE (17:33)
[2022-04-09] MEDS ORDERED: diphenhydrAMINE 50 MG/ML VIAL IVP PRN (21:00)
[2022-04-09] MEDS ORDERED: Promethazine HCl 12.5 MG SUPP PR PRN (21:00)
[2022-04-09] MEDS: Cyclobenzaprine 10 MG TAB PO PRN (21:00)
[2022-04-09] MEDS ORDERED: Acetaminophen 650 MG Suppository PR PRN (21:00)
[2022-04-09] MEDS ORDERED: Ondansetron PF 4 MG/2 ML Vial IVP PRN (21:00)
[2022-04-09] MEDS ORDERED: Acetaminophen/Codeine 30-300mg Tablet PO PRN (21:00)
[2022-04-09] MEDS ORDERED: Mag-Al 1200 mg/1200 mg/30 ML UDCUP PO PRN (21:00)
[2022-04-09] MEDS ORDERED: Morphine 2 MG/ML VIAL SLOW IVP PRN (21:00)
[2022-04-09] MEDS: Morphine 4 MG/ML VIAL SLOW IVP PRN (21:00)
[2022-04-09] MEDS ORDERED: Promethazine 25 MG TAB PO PRN (21:00)
[2022-04-09] MEDS ORDERED: Acetaminophen 325 MG TAB PO PRN (21:00)
[2022-04-09] MEDS ORDERED: diphenhydrAMINE 25 MG CAP PO PRN (21:00)
[2022-04-09] MEDS ORDERED: Promethazine HCl 25 MG/ML VIAL IM PRN (21:00)
[2022-04-09] MEDS: Acetaminophen/Codeine 30-300mg Tablet PO PRN (23:20)
[2022-04-10] MEDS: Sodium Chloride 0.9% 1,000 ML IV SCH ×2 (00:12→10:28)
[2022-04-10] MEDS: Morphine 4 MG/ML VIAL SLOW IVP PRN ×3 (01:50→12:43)
[2022-04-10] MEDS: Cyclobenzaprine 10 MG TAB PO PRN ×2 (06:46→15:16)
[2022-04-10] MEDS: Acetaminophen/Codeine 30-300mg Tablet PO PRN ×2 (08:29→12:39)
[2022-04-10 12:09] VITALS: BP 134/79; TEMP 97.9
== END 2022-04-10 16:15 | disposition home or self-care (01) ==
LOC: SDC 07:09 → SURG B 19:37
PROVIDERS: ADMIT Neurological Surgery; ATTEND Neurological Surgery
PROC: 0RG20A0 Fusion of 2 or more Cervical Vertebral Joints with Interbody Fusion Device, Anterior Approach, Anterior Column, Open Approach (ICD-10-PCS; principal; 2022-04-09)
DX: M47.12 Other spondylosis with myelopathy, cervical region (principal); M48.02 Spinal stenosis, cervical region; Z79.899 Other long term (current) drug therapy; Z86.16 Personal history of COVID-19; Z88.5 Allergy status to narcotic agent; Z88.8 Allergy status to other drugs, medicaments and biological substances
CPT/HCPCS: 76000; 90471; 90732; 96374; 96376; C1713; G0009; G0378; J0690; J1100; J1170; J2270; J2405; J2550; J2704; J2710; J3010; J3490; J7620

== ENCOUNTER 2022-04-26 14:04 | Outpatient (CLI) | payer OTHER | END 2022-04-26 14:05 | disposition home or self-care (01) | LOC: TBSIIMAG 14:04 | PROVIDERS: ATTEND Neurological Surgery | DX: M47.12 Other spondylosis with myelopathy, cervical region (principal); Z98.1 Arthrodesis status | CPT/HCPCS: 72040 ==

== ENCOUNTER 2022-06-25 14:11 | Emergency (ER) | payer OTHER ==
[2022-06-25] MEDS ORDERED: Iopamidol-370 76% 500 ML 1 ML ONE (14:57)
[2022-06-25 18:52] LABS: #Eosinphils 0.1 thou/uL (0.0-0.7); #Lymphocytes 2.1 thou/uL (1.20-3.40); #Monocytes 0.3 thou/uL (0.11-0.59); #Neutrophils 4.3 thou/uL (1.40-6.50); %Basophils 0.1 % (0.0-1.0); %Eosinophils 1.9 % (0.0-10.0); %Lymphocytes 30.5 % (21.0-51.0); %Monocytes 4.9 % (0.0-10.0); %Neutrophils 62.5 % (42.0-75.0); Hemoglobin 14.3 g/dL (12.0-16.0); Mean Corpuscular HGB CONC 32.6 g/dL (32.0-36.0); Mean Corpuscular Hemoglobin 30.6 pg (27.0-31.0); Mean Corpuscular Volume 93.7 fL (78.0-98.0); Mean Platelet Volume 7.8 fL (7.4-10.4); Platelet Count 262 thou/uL (130-400); RBC Distribution Width 11.6 % (11.5-14.5); Red Blood Cell (RBC) Count 4.68 mill/uL (4.20-5.40); White Blood Cell (WBC) Count 6.9 thou/uL (4.8-10.8)
[2022-06-25 18:54] LABS: BHCG - Serum Negative (NEGATIVE); Pregs Control Background? CLEAR/WHITE (CLR/WHITE); Pregs Control Bar Appear? YES (CONTROL BAR)
[2022-06-25 19:14] LABS: ALT (SGPT) 55 U/L (8-55); AST (SGOT) 29 U/L (5-34); Albumin 4.2 g/dL (3.5-5.0); Alkaline Phosphatase 117 U/L (40-110); Anion Gap 12 mmol/L (10-20); BUN (Urea Nitrogen) 11 mg/dL (7.0-18.7); Bilirubin, Total 0.3 mg/dL (0.2-1.2); Calc. Creatinine Clearance 0 mL/min (70-130); Carbon Dioxide 24 mmol/L (22-29); Chloride 105 mmol/L (98-107); Estimated GFR 94; Globulin 3.5 g/dL (2.4-3.5); Glucose 104 mg/dL (70-105); Potassium 3.7 mmol/L (3.5-5.1); Protein, Total 7.7 g/dL (6.0-8.3); Sodium 137 mmol/L (136-145)
[2022-06-25] MEDS ORDERED: Morphine 4 MG/ML VIAL ONE ×3 (19:27→22:43)
[2022-06-25] MEDS ORDERED: Ketorolac Tromethamine 30 MG/ML VIAL ONE (21:38)
[2022-06-25 22:37] LABS: SARS-CoV-2 NAA Rapid Test Not Detected (NotDetected)
[2022-06-26 00:59] LABS: Bilirubin Negative (Negative); Blood, Urine Negative (Negative); Clarity Extra Turbid (Clear); Glucose, Urine (Dipstick) Normal (Negative); Ketone, Urine Negative (Negative); Leukocyte Negative Leu/uL (Negative); Nitrite Negative (Negative); Protein, Urine (Dipstick) 10 mg/dL (Neg-Trace); Specific Gravity, Urine 1.038 (1.002-1.036)
== END 2022-06-25 23:46 ==
LOC: ERS 14:11
DX: R06.02 Shortness of breath (principal); R05.9 Cough, unspecified; Z20.822 Contact with and (suspected) exposure to COVID-19; Z86.16 Personal history of COVID-19
CPT/HCPCS: 36415; 71045; 71275; 72050; 80053; 81003; 83880; 84484; 84703; 85025; 85379; 93005; 96372; 96374; J1885; J2270; Q9967

== ENCOUNTER 2022-07-16 18:38 | Inpatient (IN) | payer OTHER ==
[2022-07-16 19:24] LABS: #Eosinphils 0.2 thou/uL (0.0-0.7); #Lymphocytes 3.5 thou/uL (1.20-3.40); #Monocytes 0.7 thou/uL (0.11-0.59); #Neutrophils 4.5 thou/uL (1.40-6.50); %Basophils 0.4 % (0.0-1.0); %Eosinophils 1.9 % (0.0-10.0); %Monocytes 8.4 % (0.0-10.0); %Neutrophils 50.3 % (42.0-75.0); Mean Corpuscular HGB CONC 33.7 g/dL (32.0-36.0); Mean Corpuscular Hemoglobin 30.7 pg (27.0-31.0); Mean Corpuscular Volume 91.3 fl (78.0-98.0); Mean Platelet Volume 8.1 fL (7.4-10.4); Platelet Count 329 thou/uL (130-400); RBC Distribution Width 11.8 % (11.5-14.5); Red Blood Cell (RBC) Count 5.22 mill/uL (4.20-5.40); White Blood Cell (WBC) Count 8.8 thou/uL (4.8-10.8)
[2022-07-16 19:58] LABS: Amphetamine Not Detected (NotDetected); Bacteria/HPF None Seen HPF (None Seen); Barbiturates Screen Not Detected (NotDetected); Benzodiazepine Screen Not Detected (NotDetected); Bilirubin Negative (Negative); Blood, Urine Negative (Negative); Clarity Turbid (Clear); Cocaine Metabolite Screen Detected (NotDetected); Glucose, Urine (Dipstick) Normal (Negative); Ketone, Urine 80 mg/dL (Negative); Leukocyte Negative Leu/uL (Negative); Methadone Not Detected (NotDetected); Methamphetamine Not Detected (NotDetected); Nitrite Negative (Negative); Opiate Screen Not Detected (NotDetected); Oxycodone Screen Not Detected (NotDetected); Phencyclidine (PCP) Not Detected (NotDetected); Protein, Urine (Dipstick) 50 mg/dL (Neg-Trace); RBC/HPF 0-3 HPF (0-3); Specific Gravity, Urine 1.031 (1.002-1.036); THC/Cannabinoid Screen Not Detected (NotDetected); Tricyclic Screen Detected (NotDetected); Urobilinogen 6 mg/dL (Less than 2); WBC/HPF 0-3 HPF (0-3)
[2022-07-16 20:00] LABS: Pregnancy Test - Urine (BHCG) Negative (Negative); Pregu Control Background? CLEAR/WHITE (CLR/WHITE); Pregu Control Bar Appear? YES (CONTROL BAR); Specific Gravity 1.031 (1.002-1.036)
[2022-07-16 20:14] LABS: Acetaminophen Less than 10.0 mcg/mL (10.0-30.0); Alcohol Less than 10 mg/dL (Less than 10); CK (CPK) 151 U/L (29-168); Salicylate Less than 8.0 mg/dL (15.0-30.0)
[2022-07-16 20:16] LABS: ALT (SGPT) 34 U/L (8-55); AST (SGOT) 26 U/L (5-34); Albumin 4.6 g/dL (3.5-5.0); Alcohol Less than 10 mg/dL (Less than 10); Alkaline Phosphatase 131 U/L (40-110); Anion Gap 23 mmol/L (10-20); BUN (Urea Nitrogen) 8 mg/dL (7.0-18.7); Bilirubin, Total 1.1 mg/dL (0.2-1.2); Calc. Creatinine Clearance 0 mL/min (70-130); Calcium 10.2 mg/dL (7.8-10.44); Carbon Dioxide 15 mmol/L (22-29); Chloride 103 mmol/L (98-107); Estimated GFR 83; Globulin 4.2 g/dL (2.4-3.5); Glucose 110 mg/dL (70-105); Potassium 3.6 mmol/L (3.5-5.1); Protein, Total 8.8 g/dL (6.0-8.3); Sodium 137 mmol/L (136-145)
[2022-07-16] MEDS ORDERED: Lorazepam 2 MG/ML VIAL ONE ×2 (20:28→22:25)
[2022-07-16] MEDS ORDERED: diphenhydrAMINE 50 MG/ML VIAL ONE (20:36)
[2022-07-16] MEDS ORDERED: Sodium Chloride 0.9% 1,000 ML IV SCH (21:30)
[2022-07-16] MEDS ORDERED: Electrolyte Replacement Protocol 1 EACH IVPB SCH (21:55)
[2022-07-16] MEDS ORDERED: diphenhydrAMINE 50 MG/ML VIAL IVP PRN (21:59)
[2022-07-16 22:36] LABS: SARS-CoV-2 NAA Rapid Test Not Detected (NotDetected)
[2022-07-17] MEDS ORDERED: Magnesium 2 GM/50 ML(in water) 2 GM in Premix Bag 1 BAG IVPB SCH ×2 (01:00→06:45)
[2022-07-17 02:09] LABS: Lactic Acid 1.3 mmol/L (0.5-2.2)
[2022-07-17 02:13] LABS: Magnesium 1.6 mg/dL (1.6-2.6)
[2022-07-17] MEDS: Dextrose 5%-Lactated Ringers 1,000 ML IV SCH ×5 (02:55→23:24)
[2022-07-17] MEDS: Potassium Chloride 20 MEQ in Premix Bag 1 BAG IVPB SCH ×3 (03:00→03:10)
[2022-07-17] MEDS: Midazolam HCl 2 mg/2 ml Vial IVP PRN ×4 (03:20→17:00)
[2022-07-17] MEDS ORDERED: Potassium Chloride 40 MEQ in Sodium Chloride 0.9% 500 ML IVPB SCH (03:30)
[2022-07-17] MEDS: Nicotine 14 MG PATCH TD SCH ×2 (03:33→23:24)
[2022-07-17 03:58] LABS: #Lymphocytes 1.4 thou/uL (1.20-3.40); #Monocytes 0.7 thou/uL (0.11-0.59); %Basophils 0.3 % (0.0-1.0); %Eosinophils 0.2 % (0.0-10.0); %Lymphocytes 10.9 % (21.0-51.0); %Monocytes 5.2 % (0.0-10.0); %Neutrophils 83.4 % (42.0-75.0); Hemoglobin 13.8 g/dL (12.0-16.0); Mean Corpuscular HGB CONC 33.2 g/dL (32.0-36.0); Mean Corpuscular Hemoglobin 30.5 pg (27.0-31.0); Mean Corpuscular Volume 91.9 fl (78.0-98.0); Mean Platelet Volume 8.2 fL (7.4-10.4); Platelet Count 244 thou/uL (130-400); RBC Distribution Width 11.9 % (11.5-14.5); Red Blood Cell (RBC) Count 4.53 mill/uL (4.20-5.40); White Blood Cell (WBC) Count 13.1 thou/uL (4.8-10.8)
[2022-07-17 05:34] LABS: ALT (SGPT) 27 U/L (8-55); AST (SGOT) 21 U/L (5-34); Albumin 3.6 g/dL (3.5-5.0); Alkaline Phosphatase 100 U/L (40-110); Anion Gap 14 mmol/L (10-20); BUN (Urea Nitrogen) 8 mg/dL (7.0-18.7); Bilirubin, Total 0.8 mg/dL (0.2-1.2); Calc. Creatinine Clearance 0 mL/min (70-130); Calcium 8.4 mg/dL (7.8-10.44); Carbon Dioxide 20 mmol/L (22-29); Chloride 107 mmol/L (98-107); Estimated GFR 97; Globulin 3.1 g/dL (2.4-3.5); Glucose 118 mg/dL (70-105); Magnesium 1.9 mg/dL (1.6-2.6); Protein, Total 6.7 g/dL (6.0-8.3); Sodium 137 mmol/L (136-145)
[2022-07-17] MEDS ORDERED: FLU VACC QS2022-23(6MOS UP)/PF 60 MCG/0.5 ML SYRINGE IM ONE (09:00)
[2022-07-17] MEDS: Famotidine/PF 20 mg/2ml Vial SLOW IVP SCH ×2 (10:46→20:39)
[2022-07-17] MEDS: Enoxaparin Sodium 40 MG/0.4 ML SYRINGE SC SCH (10:47)
[2022-07-17] MEDS ORDERED: hydrALAZINE 20 MG/ML VIAL SLOW IVP PRN (20:13)
[2022-07-18 02:41] VITALS: BMI 28.9
[2022-07-18 06:09] LABS: ALT (SGPT) 25 U/L (8-55); AST (SGOT) 25 U/L (5-34); Albumin 3.3 g/dL (3.5-5.0); Alkaline Phosphatase 84 U/L (40-110); Anion Gap 12 mmol/L (10-20); BUN (Urea Nitrogen) Less than 4 mg/dL (7.0-18.7); Bilirubin, Total 0.5 mg/dL (0.2-1.2); Calc. Creatinine Clearance 140 mL/min (70-130); Calcium 8.4 mg/dL (7.8-10.44); Carbon Dioxide 19 mmol/L (22-29); Chloride 109 mmol/L (98-107); Estimated GFR 114; Globulin 3.1 g/dL (2.4-3.5); Glucose 111 mg/dL (70-105); Potassium 3.7 mmol/L (3.5-5.1); Protein, Total 6.4 g/dL (6.0-8.3); Sodium 136 mmol/L (136-145)
[2022-07-18] MEDS: Dextrose 5%-Lactated Ringers 1,000 ML IV SCH ×2 (06:11→09:42)
[2022-07-18 07:11] LABS: #Eosinphils 0.1 thou/uL (0.0-0.7); #Lymphocytes 2.2 thou/uL (1.20-3.40); #Monocytes 0.4 thou/uL (0.11-0.59); %Basophils 0.5 % (0.0-1.0); %Eosinophils 1.7 % (0.0-10.0); %Lymphocytes 32.7 % (21.0-51.0); %Monocytes 5.8 % (0.0-10.0); %Neutrophils 59.3 % (42.0-75.0); Mean Corpuscular HGB CONC 32.2 g/dL (32.0-36.0); Mean Corpuscular Hemoglobin 30.3 pg (27.0-31.0); Mean Corpuscular Volume 94.1 fl (78.0-98.0); Mean Platelet Volume 8.6 fL (7.4-10.4); Platelet Count 266 10x3/uL (130-400); RBC Distribution Width 11.9 % (11.5-14.5); Red Blood Cell (RBC) Count 4.62 mill/uL (4.20-5.40); White Blood Cell (WBC) Count 6.7 10x3/uL (4.8-10.8)
[2022-07-18] MEDS ORDERED: Magnesium 2 GM/50 ML(in water) 2 GM in Premix Bag 1 BAG IVPB SCH (08:00)
[2022-07-18] MEDS: Famotidine 20 MG TAB PO SCH ×2 (09:42→20:05)
[2022-07-18] MEDS: Enoxaparin Sodium 40 MG/0.4 ML SYRINGE SC SCH (09:42)
[2022-07-18] MEDS ORDERED: Bisacodyl 10 MG SUPP PR SCH (19:00)
[2022-07-18] MEDS ORDERED: Polyethylene Glycol 3350 17 GM Packet PO SCH (19:00)
[2022-07-19] MEDS: Nicotine 14 MG PATCH TD SCH (00:28)
[2022-07-19 07:02] LABS: ALT (SGPT) 27 U/L (8-55); AST (SGOT) 18 U/L (5-34); Albumin 3.2 g/dL (3.5-5.0); Alkaline Phosphatase 90 U/L (40-110); Anion Gap 13 mmol/L (10-20); BUN (Urea Nitrogen) 6 mg/dL (7.0-18.7); Bilirubin, Total 0.3 mg/dL (0.2-1.2); Calc. Creatinine Clearance 136 mL/min (70-130); Calcium 8.7 mg/dL (7.8-10.44); Carbon Dioxide 24 mmol/L (22-29); Chloride 104 mmol/L (98-107); Estimated GFR 112; Globulin 2.8 g/dL (2.4-3.5); Glucose 109 mg/dL (70-105); Magnesium 1.8 mg/dL (1.6-2.6); Potassium 3.5 mmol/L (3.5-5.1); Sodium 137 mmol/L (136-145)
[2022-07-19] MEDS ORDERED: Potassium Chloride 20 MEQ TAB PO SCH (08:00)
[2022-07-19] MEDS ORDERED: Magnesium 2 GM/50 ML(in water) 2 GM in Premix Bag 1 BAG IVPB SCH (08:00)
[2022-07-19 08:21] VITALS: BP 143/89; TEMP 98.1
[2022-07-19] MEDS: Enoxaparin Sodium 40 MG/0.4 ML SYRINGE SC SCH (08:23)
[2022-07-19] MEDS: Famotidine 20 MG TAB PO SCH (08:24)
== END 2022-07-19 16:35 | DRG 917 ==
LOC: ERS 18:38 → CCU 21:24 → T4-A 07-18 08:00
PROVIDERS: ADMIT Internal Medicine; ATTEND Internal Medicine
DX: T43.221A Poisoning by selective serotonin reuptake inhibitors, accidental (unintentional), initial encounter (principal); G93.41 Metabolic encephalopathy; E87.20 Acidosis, unspecified; G99.2 Myelopathy in diseases classified elsewhere; G93.40 Encephalopathy, unspecified; Z20.822 Contact with and (suspected) exposure to COVID-19; F32.A Depression, unspecified; J45.909 Unspecified asthma, uncomplicated; K21.9 Gastro-esophageal reflux disease without esophagitis; T48.1X1A Poisoning by skeletal muscle relaxants [neuromuscular blocking agents], accidental (unintentional), initial encounter; M48.02 Spinal stenosis, cervical region; R21 Rash and other nonspecific skin eruption; F14.10 Cocaine abuse, uncomplicated; R94.31 Abnormal electrocardiogram [ECG] [EKG]; Z78.1 Physical restraint status; Z28.21 Immunization not carried out because of patient refusal; Z88.8 Allergy status to other drugs, medicaments and biological substances; Z86.16 Personal history of COVID-19; Z79.899 Other long term (current) drug therapy; Z90.49 Acquired absence of other specified parts of digestive tract; Z98.51 Tubal ligation status
CPT/HCPCS: 36415; 36416; 51701; 70450; 80053; 80306; 80307; 81003; 81015; 81025; 82550; 83605; 83735; 84443; 85025; 93005; 93010; 94760; 96361; 96374; 96375; 96376; J0360; J1200; J1650; J2060; J2250; J3475; J3480; J7030; J7050; S0028; U0002

== ENCOUNTER 2022-11-13 21:14 | Emergency (ER) | payer OTHER ==
[2022-11-13 22:30] LABS: Amphetamine Not Detected (NotDetected); Barbiturates Screen Not Detected (NotDetected); Benzodiazepine Screen Not Detected (NotDetected); Cocaine Metabolite Screen Detected (NotDetected); Methadone Not Detected (NotDetected); Methamphetamine Not Detected (NotDetected); Opiate Screen Not Detected (NotDetected); Oxycodone Screen Not Detected (NotDetected); Phencyclidine (PCP) Not Detected (NotDetected); THC/Cannabinoid Screen Not Detected (NotDetected); Tricyclic Screen Not Detected (NotDetected)
[2022-11-13 23:51] LABS: #Basophils 0.1 thou/uL (0.0-0.2); #Eosinphils 0.4 thou/uL (0.0-0.7); #Lymphocytes 2.8 thou/uL (1.20-3.40); #Monocytes 0.6 thou/uL (0.11-0.59); #Neutrophils 6.1 thou/uL (1.40-6.50); %Basophils 0.9 % (0.0-1.0); %Eosinophils 3.9 % (0.0-10.0); %Neutrophils 61.3 % (42.0-75.0); Hemoglobin 14.8 g/dL (12.0-16.0); Mean Corpuscular HGB CONC 32.9 g/dL (32.0-36.0); Mean Corpuscular Hemoglobin 30.2 pg (27.0-31.0); Mean Corpuscular Volume 91.7 fl (78.0-98.0); Mean Platelet Volume 7.8 fL (7.4-10.4); Platelet Count 310 10x3/uL (130-400); RBC Distribution Width 12.7 % (11.5-14.5); Red Blood Cell (RBC) Count 4.91 mill/uL (4.20-5.40)
[2022-11-14 00:10] LABS: BHCG - Serum Negative (NEGATIVE); Pregs Control Background? CLEAR/WHITE (CLR/WHITE); Pregs Control Bar Appear? YES (CONTROL BAR)
[2022-11-14 00:16] LABS: ALT (SGPT) 17 U/L (8-55); AST (SGOT) 15 U/L (5-34); Acetaminophen Less than 10.0 mcg/mL (10.0-30.0); Albumin 3.9 g/dL (3.5-5.0); Alcohol Less than 10 mg/dL (Less than 10); Alkaline Phosphatase 119 U/L (40-110); Anion Gap 11 mmol/L (10-20); BUN (Urea Nitrogen) 14 mg/dL (7.0-18.7); Bilirubin, Total 0.2 mg/dL (0.2-1.2); Calc. Creatinine Clearance 0 mL/min (70-130); Calcium 8.8 mg/dL (7.8-10.44); Carbon Dioxide 23 mmol/L (22-29); Chloride 107 mmol/L (98-107); Estimated GFR 92; Globulin 3.6 g/dL (2.4-3.5); Glucose 101 mg/dL (70-105); Potassium 3.8 mmol/L (3.5-5.1); Protein, Total 7.5 g/dL (6.0-8.3); Salicylate Less than 8.0 mg/dL (15.0-30.0); Sodium 137 mmol/L (136-145)
== END 2022-11-14 03:39 | disposition home or self-care (01) ==
LOC: ERS 21:14
DX: F32.A Depression, unspecified (principal)
CPT/HCPCS: 36415; 80053; 80306; 80307; 84443; 84703; 85025; 99285

== ENCOUNTER 2022-11-17 20:52 | Emergency (ER) | payer OTHER | END 2022-11-18 00:02 | disposition home or self-care (01) | LOC: ERS 20:52 | DX: S91.201A Unspecified open wound of right great toe with damage to nail, initial encounter (principal); F17.210 Nicotine dependence, cigarettes, uncomplicated; J45.909 Unspecified asthma, uncomplicated; K21.9 Gastro-esophageal reflux disease without esophagitis; W10.9XXA Fall (on) (from) unspecified stairs and steps, initial encounter | CPT/HCPCS: 99283 ==

== ENCOUNTER 2022-12-23 17:49 | Inpatient (IN) | payer OTHER ==
[~2022-12-23 17:49] MED LIST changes: -Iopamidol-370 76% 500 ML 1 ML ONE; +Iopamidol-370 76% 500 ML MDV (1 ML CHARGE) ONE
[2022-12-23] MEDS ORDERED: levETIRAcetam 500 MG/5 ML VIAL ONE (18:28)
[2022-12-23 18:53] LABS: #Basophils 0.1 thou/uL (0.0-0.2); #Eosinphils 0.4 thou/uL (0.0-0.7); #Lymphocytes 2.1 thou/uL (1.20-3.40); #Monocytes 0.5 thou/uL (0.11-0.59); #Neutrophils 5.1 thou/uL (1.40-6.50); %Basophils 0.8 % (0.0-1.0); %Eosinophils 4.5 % (0.0-10.0); %Lymphocytes 25.9 % (21.0-51.0); %Monocytes 6.4 % (0.0-10.0); %Neutrophils 62.5 % (42.0-75.0); Hemoglobin 14.4 g/dL (12.0-16.0); Mean Corpuscular Hemoglobin 30.5 pg (27.0-31.0); Mean Corpuscular Volume 92.4 fl (78.0-98.0); Platelet Count 246 10x3/uL (130-400); RBC Distribution Width 12.6 % (11.5-14.5); Red Blood Cell (RBC) Count 4.73 mill/uL (4.20-5.40); White Blood Cell (WBC) Count 8.2 10x3/uL (4.8-10.8)
[2022-12-23 19:30] LABS: ALT (SGPT) 21 U/L (8-55); AST (SGOT) 33 U/L (5-34); Acetaminophen Less than 10.0 mcg/mL (10.0-30.0); Albumin 3.9 g/dL (3.5-5.0); Alcohol Less than 10 mg/dL (Less than 10); Alkaline Phosphatase 103 U/L (40-110); Bilirubin, Direct 0.1 mg/dL (0.1-0.3); Bilirubin, Total 0.2 mg/dL (0.2-1.2); Lipase 111 U/L (8-78); Protein, Total 8.4 g/dL (6.0-8.3); Salicylate Less than 8.0 mg/dL (15.0-30.0)
[2022-12-23 20:05] LABS: Anion Gap 13 mmol/L (10-20); BUN (Urea Nitrogen) 12 mg/dL (7.0-18.7); CK (CPK) 80 U/L (29-168); Calc. Creatinine Clearance 0 mL/min (70-130); Carbon Dioxide 23 mmol/L (22-29); Chloride 108 mmol/L (98-107); Estimated GFR 90; Glucose 105 mg/dL (70-105); Potassium 3.7 mmol/L (3.5-5.1); Sodium 140 mmol/L (136-145)
[2022-12-23 21:51] LABS: Bacteria/HPF None Seen HPF (None Seen); Bilirubin Negative (Negative); Blood, Urine Negative (Negative); Clarity Clear (Clear); Glucose, Urine (Dipstick) Normal (Negative); Ketone, Urine Negative (Negative); Leukocyte Negative Leu/uL (Negative); Mucous/LPF 1+ LPF (<2+); Nitrite Negative (Negative); Protein, Urine (Dipstick) 30 mg/dL (Neg-Trace); RBC/HPF 0-3 HPF (0-3); Urobilinogen Normal mg/dL (Less than 2); WBC/HPF 0-3 HPF (0-3)
[2022-12-23 21:52] LABS: Specific Gravity, Urine Greater than 1.060 (1.002-1.036)
[2022-12-23 21:53] LABS: Pregnancy Test - Urine (BHCG) Negative (Negative); Pregu Control Background? CLEAR/WHITE (CLR/WHITE); Pregu Control Bar Appear? YES (CONTROL BAR); Specific Gravity Greater than 1.060 (1.002-1.036)
[2022-12-23 21:56] LABS: Amphetamine Not Detected (NotDetected); Barbiturates Screen Not Detected (NotDetected); Benzodiazepine Screen Detected (NotDetected); Cocaine Metabolite Screen Detected (NotDetected); Methadone Not Detected (NotDetected); Methamphetamine Not Detected (NotDetected); Opiate Screen Not Detected (NotDetected); Oxycodone Screen Not Detected (NotDetected); Phencyclidine (PCP) Not Detected (NotDetected); THC/Cannabinoid Screen Not Detected (NotDetected); Tricyclic Screen Not Detected (NotDetected)
[2022-12-23] MEDS ORDERED: Ondansetron PF 4 MG/2 ML Vial IVP PRN (22:05)
[2022-12-23] MEDS ORDERED: Acetaminophen 650 MG Suppository PR PRN (22:05)
[2022-12-23] MEDS ORDERED: Piperacillin/Tazobactam 3.375 GM VIAL ONE (22:18)
[2022-12-23] MEDS ORDERED: Vancomycin 1.5 GRAM/300 ML BAG 1.5 GM in Premix Bag 1 BAG IVPB SCH (22:30)
[2022-12-23] MEDS ORDERED: Lorazepam 2 MG/ML VIAL SLOW IVP PRN ×2 (22:31→22:43)
[2022-12-23] MEDS: Lactated Ringer's 1,000 ML IV SCH (23:40)
[2022-12-24 00:14] VITALS: BMI 28.1
[2022-12-24 00:42] LABS: HIV (1/2) Antibody/Antigen Non-Reactive (NonReactive); Hep C IgG Ab Non-Reactive (NonReactive); Hep C Index 0.32 S/CO (0-0.79)
[2022-12-24 07:11] LABS: #Eosinphils 0.3 thou/uL (0.0-0.7); #Lymphocytes 1.8 thou/uL (1.20-3.40); #Monocytes 0.6 thou/uL (0.11-0.59); #Neutrophils 6.2 thou/uL (1.40-6.50); %Basophils 0.5 % (0.0-1.0); %Eosinophils 3.2 % (0.0-10.0); %Lymphocytes 19.7 % (21.0-51.0); %Monocytes 6.4 % (0.0-10.0); %Neutrophils 70.3 % (42.0-75.0); Hemoglobin 12.9 g/dL (12.0-16.0); Mean Corpuscular HGB CONC 33.3 g/dL (32.0-36.0); Mean Corpuscular Hemoglobin 30.8 pg (27.0-31.0); Mean Corpuscular Volume 92.6 fl (78.0-98.0); Mean Platelet Volume 8.1 fL (7.4-10.4); Platelet Count 258 10x3/uL (130-400); RBC Distribution Width 12.4 % (11.5-14.5); White Blood Cell (WBC) Count 8.9 10x3/uL (4.8-10.8)
[2022-12-24 07:35] LABS: ALT (SGPT) 16 U/L (8-55); AST (SGOT) 13 U/L (5-34); Albumin 3.5 g/dL (3.5-5.0); Alkaline Phosphatase 81 U/L (40-110); Anion Gap 10 mmol/L (10-20); BUN (Urea Nitrogen) 13 mg/dL (7.0-18.7); Bilirubin, Total 0.2 mg/dL (0.2-1.2); CK (CPK) 49 U/L (29-168); Calc. Creatinine Clearance 111 mL/min (70-130); Calcium 8.9 mg/dL (7.8-10.44); Carbon Dioxide 26 mmol/L (22-29); Chloride 109 mmol/L (98-107); Estimated GFR 97; Globulin 3.3 g/dL (2.4-3.5); Glucose 100 mg/dL (70-105); Potassium 3.4 mmol/L (3.5-5.1); Protein, Total 6.8 g/dL (6.0-8.3); Sodium 142 mmol/L (136-145)
[2022-12-24] MEDS: levETIRAcetam 500 MG/5 ML VIAL SLOW IVP SCH ×2 (08:42→20:52)
[2022-12-24] MEDS: Lactated Ringer's 1,000 ML IV SCH ×2 (08:43→20:52)
[2022-12-24] MEDS ORDERED: levETIRAcetam in NS 500 MG in Premix Bag 1 BAG IVPB SCH (09:00)
[2022-12-24 11:08] LABS: Syphilis Antibody Nonreactive (Nonreactive); Syphilis Antibody Index 0.02 S/CO (<1.00 Non-Reactive)
[2022-12-25] MEDS: Lactated Ringer's 1,000 ML IV SCH ×2 (04:00→13:36)
[2022-12-25 05:04] LABS: #Basophils 0.1 thou/uL (0.0-0.2); #Eosinphils 0.3 thou/uL (0.0-0.7); #Lymphocytes 2.4 thou/uL (1.20-3.40); #Monocytes 0.4 thou/uL (0.11-0.59); %Basophils 0.9 % (0.0-1.0); %Eosinophils 4.4 % (0.0-10.0); %Lymphocytes 38.8 % (21.0-51.0); %Monocytes 6.3 % (0.0-10.0); %Neutrophils 49.5 % (42.0-75.0); Hemoglobin 12.5 g/dL (12.0-16.0); Mean Corpuscular HGB CONC 33.3 g/dL (32.0-36.0); Mean Corpuscular Hemoglobin 30.8 pg (27.0-31.0); Mean Corpuscular Volume 92.6 fl (78.0-98.0); Mean Platelet Volume 7.9 fL (7.4-10.4); Platelet Count 253 10x3/uL (130-400); RBC Distribution Width 12.2 % (11.5-14.5); Red Blood Cell (RBC) Count 4.04 mill/uL (4.20-5.40)
[2022-12-25 05:31] LABS: ALT (SGPT) 22 U/L (8-55); AST (SGOT) 20 U/L (5-34); Albumin 3.4 g/dL (3.5-5.0); Alkaline Phosphatase 88 U/L (40-110); Anion Gap 14 mmol/L (10-20); BUN (Urea Nitrogen) 8 mg/dL (7.0-18.7); Bilirubin, Total 0.2 mg/dL (0.2-1.2); Calc. Creatinine Clearance 133 mL/min (70-130); Calcium 8.7 mg/dL (7.8-10.44); Carbon Dioxide 21 mmol/L (22-29); Chloride 108 mmol/L (98-107); Estimated GFR 113; Globulin 3.2 g/dL (2.4-3.5); Glucose 93 mg/dL (70-105); Potassium 3.5 mmol/L (3.5-5.1); Protein, Total 6.6 g/dL (6.0-8.3); Sodium 139 mmol/L (136-145)
[2022-12-25] MEDS: levETIRAcetam 500 MG/5 ML VIAL SLOW IVP SCH ×2 (08:37→22:52)
[2022-12-25] MEDS ORDERED: Lorazepam 2 MG/ML VIAL SLOW IVP SCH (10:45)
[2022-12-26] MEDS: Lactated Ringer's 1,000 ML IV SCH ×3 (00:33→21:41)
[2022-12-26 06:34] LABS: #Basophils 0.1 thou/uL (0.0-0.2); #Eosinphils 0.2 thou/uL (0.0-0.7); #Lymphocytes 2.5 thou/uL (1.20-3.40); #Monocytes 0.4 thou/uL (0.11-0.59); #Neutrophils 3.2 thou/uL (1.40-6.50); %Basophils 0.9 % (0.0-1.0); %Eosinophils 3.6 % (0.0-10.0); %Lymphocytes 38.8 % (21.0-51.0); %Monocytes 6.7 % (0.0-10.0); Hemoglobin 13.3 g/dL (12.0-16.0); Mean Corpuscular Hemoglobin 30.3 pg (27.0-31.0); Mean Corpuscular Volume 91.8 fl (78.0-98.0); Mean Platelet Volume 7.9 fL (7.4-10.4); Platelet Count 266 10x3/uL (130-400); RBC Distribution Width 12.1 % (11.5-14.5); Red Blood Cell (RBC) Count 4.39 mill/uL (4.20-5.40); White Blood Cell (WBC) Count 6.4 10x3/uL (4.8-10.8)
[2022-12-26 06:47] LABS: ALT (SGPT) 71 U/L (8-55); AST (SGOT) 56 U/L (5-34); Albumin 3.6 g/dL (3.5-5.0); Alkaline Phosphatase 97 U/L (40-110); Anion Gap 13 mmol/L (10-20); BUN (Urea Nitrogen) 8 mg/dL (7.0-18.7); Bilirubin, Total 0.2 mg/dL (0.2-1.2); Calc. Creatinine Clearance 121 mL/min (70-130); Calcium 8.8 mg/dL (7.8-10.44); Carbon Dioxide 23 mmol/L (22-29); Chloride 107 mmol/L (98-107); Estimated GFR 105; Globulin 3.3 g/dL (2.4-3.5); Glucose 112 mg/dL (70-105); Potassium 3.8 mmol/L (3.5-5.1); Protein, Total 6.9 g/dL (6.0-8.3); Sodium 139 mmol/L (136-145)
[2022-12-26] MEDS ORDERED: Albuterol 200 PUFF (6.7GM INHALER) INH PRN (08:28)
[2022-12-26] MEDS ORDERED: Non-Formulary Item 1 EACH (Budesonide-Formoterol [Symbicort 160-4.5] 160 MG/4.5 MG Aer) INH SCH (09:00)
[2022-12-26] MEDS: levETIRAcetam 500 MG/5 ML VIAL SLOW IVP SCH (09:35)
[2022-12-26] MEDS: DULoxetine 60 MG CAP PO SCH (09:44)
[2022-12-26] MEDS: Mometasone 200 MCG/Formoterol 5 MCG 120 PUFF INHALER INH SCH (19:02)
[2022-12-26] MEDS ORDERED: QUEtiapine 100 MG TAB PO SCH (21:00)
[2022-12-26] MEDS ORDERED: hydrOXYzine Pamoate 25 mg Capsule PO SCH (21:00)
[2022-12-27 06:05] LABS: #Eosinphils 0.1 thou/uL (0.0-0.7); #Lymphocytes 2.5 thou/uL (1.20-3.40); #Monocytes 0.4 thou/uL (0.11-0.59); #Neutrophils 2.6 thou/uL (1.40-6.50); %Basophils 0.2 % (0.0-1.0); %Eosinophils 2.5 % (0.0-10.0); %Lymphocytes 43.5 % (21.0-51.0); %Monocytes 7.6 % (0.0-10.0); %Neutrophils 46.2 % (42.0-75.0); Hemoglobin 12.5 g/dL (12.0-16.0); Mean Corpuscular HGB CONC 33.6 g/dL (32.0-36.0); Mean Corpuscular Volume 92.2 fl (78.0-98.0); Mean Platelet Volume 8.1 fL (7.4-10.4); Platelet Count 257 10x3/uL (130-400); RBC Distribution Width 12.1 % (11.5-14.5); Red Blood Cell (RBC) Count 4.04 mill/uL (4.20-5.40); White Blood Cell (WBC) Count 5.7 10x3/uL (4.8-10.8)
[2022-12-27] MEDS: Lactated Ringer's 1,000 ML IV SCH (06:14)
[2022-12-27 06:29] LABS: ALT (SGPT) 68 U/L (8-55); AST (SGOT) 33 U/L (5-34); Albumin 3.5 g/dL (3.5-5.0); Alkaline Phosphatase 87 U/L (40-110); Anion Gap 11 mmol/L (10-20); BUN (Urea Nitrogen) 6 mg/dL (7.0-18.7); Bilirubin, Total 0.2 mg/dL (0.2-1.2); Calc. Creatinine Clearance 161 mL/min (70-130); Calcium 8.6 mg/dL (7.8-10.44); Carbon Dioxide 24 mmol/L (22-29); Chloride 107 mmol/L (98-107); Estimated GFR 111; Globulin 3.1 g/dL (2.4-3.5); Glucose 94 mg/dL (70-105); Potassium 3.6 mmol/L (3.5-5.1); Protein, Total 6.6 g/dL (6.0-8.3); Sodium 138 mmol/L (136-145)
[2022-12-27] MEDS: Mometasone 200 MCG/Formoterol 5 MCG 120 PUFF INHALER INH SCH (07:08)
[2022-12-27] MEDS: DULoxetine 60 MG CAP PO SCH (08:48)
[2022-12-27 11:54] VITALS: BP 136/87; TEMP 97.9
== END 2022-12-27 17:06 | disposition home health service (06) | DRG 101 ==
LOC: ERS 17:49 → IMCU/EMU 21:11 → T4-B 12-26 12:20
PROVIDERS: ADMIT Student in an Organized Health Care Education/Training Program; ATTEND Student in an Organized Health Care Education/Training Program
PROC: 4A10X4Z Monitoring of Central Nervous Electrical Activity, External Approach (ICD-10-PCS; principal; 2022-12-24)
PROC: 4A10X4Z Monitoring of Central Nervous Electrical Activity, External Approach (ICD-10-PCS; 2022-12-24)
DX: G40.89 Other seizures (principal); J45.909 Unspecified asthma, uncomplicated; K21.9 Gastro-esophageal reflux disease without esophagitis; F41.9 Anxiety disorder, unspecified; F32.A Depression, unspecified; E87.6 Hypokalemia; F19.10 Other psychoactive substance abuse, uncomplicated; F14.10 Cocaine abuse, uncomplicated; F13.10 Sedative, hypnotic or anxiolytic abuse, uncomplicated; M47.812 Spondylosis without myelopathy or radiculopathy, cervical region; Z90.49 Acquired absence of other specified parts of digestive tract; Z98.51 Tubal ligation status; Z88.8 Allergy status to other drugs, medicaments and biological substances; Z79.51 Long term (current) use of inhaled steroids; Z79.899 Other long term (current) drug therapy; Z91.148 Patient's other noncompliance with medication regimen for other reason
CPT/HCPCS: 36415; 36416; 70450; 70487; 70551; 71045; 72141; 80048; 80053; 80076; 80177; 80306; 80307; 81003; 81015; 81025; 82550; 83605; 83690; 84146; 84443; 85025; 86780; 86803; 87389; 93005; 94760; 95712; 95819; 95957; 96365; 96367; J1650; J1953; J2060; J2543; J3370; J7120; Q0177; Q9967

== ENCOUNTER 2023-04-09 18:30 | Emergency (ER) | payer OTHER ==
[2023-04-09 20:23] LABS: #Eosinphils 0.2 thou/uL (0.0-0.7); #Monocytes 0.6 thou/uL (0.11-0.59); #Neutrophils 5.6 thou/uL (1.40-6.50); %Basophils 0.4 % (0.0-1.0); %Eosinophils 1.8 % (0.0-10.0); %Lymphocytes 28.9 % (21.0-51.0); %Neutrophils 61.7 % (42.0-75.0); Hemoglobin 13.8 g/dL (12.0-16.0); Mean Corpuscular HGB CONC 34.1 g/dL (32.0-36.0); Mean Corpuscular Hemoglobin 30.1 pg (27.0-31.0); Mean Corpuscular Volume 88.2 fl (78.0-98.0); Mean Platelet Volume 10.2 fL (7.4-10.4); Platelet Count 312 10x3/uL (130-400); Red Blood Cell (RBC) Count 4.59 mill/uL (4.20-5.40); White Blood Cell (WBC) Count 9.1 10x3/uL (4.8-10.8)
[2023-04-09 20:47] LABS: ALT (SGPT) 24 U/L (8-55); AST (SGOT) 25 U/L (5-34); Alkaline Phosphatase 113 U/L (40-110); Anion Gap 10 mmol/L (10-20); BUN (Urea Nitrogen) 16 mg/dL (7.0-18.7); Bilirubin, Total 0.3 mg/dL (0.2-1.2); Calc. Creatinine Clearance 0 mL/min (70-130); Carbon Dioxide 25 mmol/L (22-29); Chloride 103 mmol/L (98-107); Estimated GFR 106; Globulin 3.8 g/dL (2.4-3.5); Glucose 121 mg/dL (70-105); Potassium 3.4 mmol/L (3.5-5.1); Protein, Total 7.8 g/dL (6.0-8.3); Sodium 135 mmol/L (136-145)
== END 2023-04-09 22:22 | disposition home or self-care (01) ==
LOC: ERS 18:30
DX: S01.21XA Laceration without foreign body of nose, initial encounter (principal); K21.9 Gastro-esophageal reflux disease without esophagitis; F17.210 Nicotine dependence, cigarettes, uncomplicated; W18.30XA Fall on same level, unspecified, initial encounter
CPT/HCPCS: 36415; 70450; 70486; 80053; 83605; 85025; 87040

== ENCOUNTER 2023-05-02 13:40 | Emergency (ER) | payer OTHER ==
[2023-05-02] MEDS ORDERED: levETIRAcetam 500 MG/5 ML VIAL ONE (14:08)
== END 2023-05-02 15:04 | disposition home or self-care (01) ==
LOC: ERS 13:40
DX: G40.909 Epilepsy, unspecified, not intractable, without status epilepticus (principal); Z91.148 Patient's other noncompliance with medication regimen for other reason; K21.9 Gastro-esophageal reflux disease without esophagitis; Z79.899 Other long term (current) drug therapy; F17.210 Nicotine dependence, cigarettes, uncomplicated
CPT/HCPCS: 36416; 96374; J1953

== ENCOUNTER 2023-05-02 16:34 | Emergency (ER) | payer OTHER ==
[2023-05-02 17:26] LABS: #Eosinphils 0.1 thou/uL (0.0-0.7); #Monocytes 0.6 thou/uL (0.11-0.59); #Neutrophils 4.1 thou/uL (1.40-6.50); %Basophils 0.5 % (0.0-1.0); %Eosinophils 1.5 % (0.0-10.0); %Lymphocytes 35.5 % (21.0-51.0); %Monocytes 8.2 % (0.0-10.0); Hematocrit 36.6 % (36.0-47.0); Hemoglobin 11.9 g/dL (12.0-16.0); Mean Corpuscular HGB CONC 32.5 g/dL (32.0-36.0); Mean Corpuscular Hemoglobin 30.1 pg (27.0-31.0); Mean Corpuscular Volume 92.7 fl (78.0-98.0); Mean Platelet Volume 10.6 fL (7.4-10.4); Platelet Count 257 10x3/uL (130-400); RBC Distribution Width 13.2 % (11.5-14.5); Red Blood Cell (RBC) Count 3.95 mill/uL (4.20-5.40); White Blood Cell (WBC) Count 7.6 10x3/uL (4.8-10.8)
[2023-05-02 17:35] LABS: BHCG - Serum Negative (NEGATIVE); Pregs Control Background? CLEAR/WHITE (CLR/WHITE); Pregs Control Bar Appear? YES (CONTROL BAR)
[2023-05-02 17:53] LABS: Troponin I Less than 0.010 ng/mL (< 0.028)
[2023-05-02 17:55] LABS: ALT (SGPT) 21 U/L (8-55); AST (SGOT) 14 U/L (5-34); Albumin 3.2 g/dL (3.5-5.0); Alkaline Phosphatase 87 U/L (40-110); Anion Gap 8 mmol/L (10-20); BUN (Urea Nitrogen) 10 mg/dL (7.0-18.7); Bilirubin, Total 0.2 mg/dL (0.2-1.2); Calc. Creatinine Clearance 0 mL/min (70-130); Calcium 8.6 mg/dL (7.8-10.44); Carbon Dioxide 27 mmol/L (22-29); Chloride 107 mmol/L (98-107); Estimated GFR 100; Globulin 2.8 g/dL (2.4-3.5); Glucose 104 mg/dL (70-105); Potassium 3.9 mmol/L (3.5-5.1); Sodium 138 mmol/L (136-145)
[2023-05-02] MEDS ORDERED: levETIRAcetam 500 MG/5 ML VIAL ONE (18:17)
== END 2023-05-02 22:25 | disposition short-term general hospital (02) ==
LOC: ERS 16:34
DX: G83.84 Todd's paralysis (postepileptic) (principal); G40.909 Epilepsy, unspecified, not intractable, without status epilepticus; K21.9 Gastro-esophageal reflux disease without esophagitis; F17.210 Nicotine dependence, cigarettes, uncomplicated
CPT/HCPCS: 36416; 70450; 70496; 70498; 80053; 84484; 84703; 85025; 93005; 96374; J1953; Q9967

== ENCOUNTER 2023-05-17 19:27 | Emergency (ER) | payer OTHER ==
[2023-05-17] MEDS ORDERED: levETIRAcetam 500 MG/5 ML VIAL ONE (19:38)
[2023-05-17 20:18] LABS: #Monocytes 0.8 thou/uL (0.11-0.59); #Neutrophils 7.8 thou/uL (1.40-6.50); %Basophils 0.2 % (0.0-1.0); %Eosinophils 0.1 % (0.0-10.0); %Lymphocytes 20.9 % (21.0-51.0); %Monocytes 7.2 % (0.0-10.0); %Neutrophils 71.2 % (42.0-75.0); Hematocrit 46.1 % (36.0-47.0); Hemoglobin 15.6 g/dL (12.0-16.0); Mean Corpuscular HGB CONC 33.8 g/dL (32.0-36.0); Mean Corpuscular Hemoglobin 29.8 pg (27.0-31.0); Mean Corpuscular Volume 88.1 fl (78.0-98.0); Mean Platelet Volume 10.5 fL (7.4-10.4); Platelet Count 264 10x3/uL (130-400); RBC Distribution Width 12.5 % (11.5-14.5); Red Blood Cell (RBC) Count 5.23 mill/uL (4.20-5.40); White Blood Cell (WBC) Count 10.9 10x3/uL (4.8-10.8)
[2023-05-17 20:37] LABS: BHCG - Serum Negative (NEGATIVE); Pregs Control Background? CLEAR/WHITE (CLR/WHITE); Pregs Control Bar Appear? YES (CONTROL BAR)
[2023-05-17 20:46] LABS: ALT (SGPT) 34 U/L (8-55); AST (SGOT) 29 U/L (5-34); Albumin 4.6 g/dL (3.5-5.0); Alkaline Phosphatase 121 U/L (40-110); Anion Gap 20 mmol/L (10-20); BUN (Urea Nitrogen) 16 mg/dL (7.0-18.7); Bilirubin, Total 0.6 mg/dL (0.2-1.2); CK (CPK) 149 U/L (29-168); Calc. Creatinine Clearance 0 mL/min (70-130); Calcium 9.7 mg/dL (7.8-10.44); Carbon Dioxide 17 mmol/L (22-29); Chloride 97 mmol/L (98-107); Estimated GFR 90; Globulin 4.2 g/dL (2.4-3.5); Glucose 88 mg/dL (70-105); Potassium 3.5 mmol/L (3.5-5.1); Protein, Total 8.8 g/dL (6.0-8.3); Sodium 130 mmol/L (136-145)
[2023-05-17 20:54] LABS: Alcohol Less than 10.0 mg/dL (Less than 10); Salicylate Less than 8.0 mg/dL (15.0-30.0)
[2023-05-17 22:02] LABS: Bacteria/HPF None Seen HPF (None Seen); Bilirubin Negative (Negative); Blood, Urine Negative (Negative); CAUTI Indications for Culture Alt mental st,lethar; Clarity Clear (Clear); Glucose, Urine (Dipstick) Normal (Negative); Ketone, Urine Greater than 150 mg/dL (Negative); Leukocyte 25 Leu/uL (Negative); Nitrite Negative (Negative); Protein, Urine (Dipstick) 30 mg/dL (Neg-Trace); RBC/HPF 0-3 HPF (0-3); Specific Gravity, Urine 1.032 (1.002-1.036); WBC/HPF None Seen HPF (0-3); pH, Urine 5.5 (5.0-9.0)
[2023-05-17 22:08] LABS: Amphetamine Detected (NotDetected); Barbiturates Screen Not Detected (NotDetected); Benzodiazepine Screen Detected (NotDetected); Cocaine Metabolite Screen Not Detected (NotDetected); Methadone Not Detected (NotDetected); Methamphetamine Detected (NotDetected); Opiate Screen Not Detected (NotDetected); Oxycodone Screen Not Detected (NotDetected); Phencyclidine (PCP) Not Detected (NotDetected); THC/Cannabinoid Screen Detected (NotDetected); Tricyclic Screen Not Detected (NotDetected)
[2023-05-17 22:29] LABS: Acetaminophen Less than 10 mcg/mL (10.0-30.0)
[2023-05-17 22:30] LABS: Urine Culture Reflex No No
== END 2023-05-18 04:55 | disposition home or self-care (01) ==
LOC: ERS 19:27
DX: F15.10 Other stimulant abuse, uncomplicated (principal); G40.909 Epilepsy, unspecified, not intractable, without status epilepticus; K21.9 Gastro-esophageal reflux disease without esophagitis; F17.210 Nicotine dependence, cigarettes, uncomplicated
CPT/HCPCS: 51701; 71045; 80053; 80306; 80307; 81001; 82550; 83605; 84703; 85025; 86140; 93005; 94760; 96361; 96365; J1953

== ENCOUNTER 2023-06-23 06:31 | Emergency (ER) | payer OTHER ==
[2023-06-23 07:03] LABS: #Monocytes 1.2 thou/uL (0.11-0.59); #Neutrophils 12.7 thou/uL (1.40-6.50); %Basophils 0.3 % (0.0-1.0); %Eosinophils 0.1 % (0.0-10.0); %Lymphocytes 11.8 % (21.0-51.0); %Monocytes 7.8 % (0.0-10.0); %Neutrophils 79.7 % (42.0-75.0); Hematocrit 41.6 % (36.0-47.0); Hemoglobin 14.7 g/dL (12.0-16.0); Mean Corpuscular HGB CONC 35.3 g/dL (32.0-36.0); Mean Corpuscular Hemoglobin 30.2 pg (27.0-31.0); Mean Corpuscular Volume 85.4 fl (78.0-98.0); Mean Platelet Volume 10.5 fL (7.4-10.4); Platelet Count 338 10x3/uL (130-400); Red Blood Cell (RBC) Count 4.87 mill/uL (4.20-5.40); White Blood Cell (WBC) Count 15.9 10x3/uL (4.8-10.8)
[2023-06-23 07:15] LABS: BHCG - Serum Negative (NEGATIVE); Pregs Control Background? CLEAR/WHITE (CLR/WHITE); Pregs Control Bar Appear? YES (CONTROL BAR)
[2023-06-23 07:25] LABS: Acetaminophen Less than 10 mcg/mL (10.0-30.0); Alcohol Less than 10.0 mg/dL (Less than 10); Magnesium 1.7 mg/dL (1.6-2.6); Salicylate Less than 8.0 mg/dL (15.0-30.0)
[2023-06-23 07:31] LABS: ALT (SGPT) 33 U/L (8-55); AST (SGOT) 36 U/L (5-34); Albumin 5.1 g/dL (3.5-5.0); Alkaline Phosphatase 132 U/L (40-110); Anion Gap 21 mmol/L (10-20); BUN (Urea Nitrogen) 16 mg/dL (7.0-18.7); Bilirubin, Total 1.6 mg/dL (0.2-1.2); Calc. Creatinine Clearance 0 mL/min (70-130); Calcium 10.2 mg/dL (7.8-10.44); Carbon Dioxide 20 mmol/L (22-29); Chloride 99 mmol/L (98-107); Estimated GFR 45; Globulin 3.6 g/dL (2.4-3.5); Glucose 135 mg/dL (70-105); Potassium 3.5 mmol/L (3.5-5.1); Protein, Total 8.7 g/dL (6.0-8.3); Sodium 136 mmol/L (136-145)
== END 2023-06-23 07:26 | disposition left against medical advice (07) ==
LOC: ERS 06:31
DX: R56.9 Unspecified convulsions (principal); R00.0 Tachycardia, unspecified; K21.9 Gastro-esophageal reflux disease without esophagitis; F17.210 Nicotine dependence, cigarettes, uncomplicated; Z79.899 Other long term (current) drug therapy
CPT/HCPCS: 71045; 80053; 80307; 82550; 83735; 84703; 85025; 93005

== ENCOUNTER 2023-07-22 11:48 | Emergency (ER) | payer OTHER ==
[2023-07-22] MEDS ORDERED: LORazepam 2 MG/ML SYR.(CARPUJECT) ONE (12:24)
[2023-07-22 12:32] LABS: #Basophils 0.1 thou/uL (0.0-0.2); #Monocytes 0.6 thou/uL (0.11-0.59); #Neutrophils 3.8 thou/uL (1.40-6.50); %Basophils 0.7 % (0.0-1.0); %Eosinophils 0.4 % (0.0-10.0); %Lymphocytes 37.7 % (21.0-51.0); %Neutrophils 53.1 % (42.0-75.0); Hematocrit 43.9 % (36.0-47.0); Hemoglobin 14.7 g/dL (12.0-16.0); Mean Corpuscular HGB CONC 33.5 g/dL (32.0-36.0); Mean Corpuscular Hemoglobin 29.8 pg (27.0-31.0); Mean Corpuscular Volume 88.9 fl (78.0-98.0); Mean Platelet Volume 10.2 fL (7.4-10.4); Platelet Count 343 10x3/uL (130-400); RBC Distribution Width 13.4 % (11.5-14.5); Red Blood Cell (RBC) Count 4.94 mill/uL (4.20-5.40); White Blood Cell (WBC) Count 7.1 10x3/uL (4.8-10.8)
[2023-07-22 12:52] LABS: ALT (SGPT) 22 U/L (8-55); AST (SGOT) 19 U/L (5-34); Albumin 4.8 g/dL (3.5-5.0); Alkaline Phosphatase 100 U/L (40-110); Anion Gap 20 mmol/L (10-20); BHCG - Serum Negative (NEGATIVE); BUN (Urea Nitrogen) 8 mg/dL (7.0-18.7); Bilirubin, Total 1.3 mg/dL (0.2-1.2); Calc. Creatinine Clearance 0 mL/min (70-130); Calcium 9.9 mg/dL (7.8-10.44); Carbon Dioxide 20 mmol/L (22-29); Chloride 100 mmol/L (98-107); Estimated GFR 88; Globulin 3.4 g/dL (2.4-3.5); Glucose 90 mg/dL (70-105); Lipase 11 U/L (8-78); Magnesium 1.8 mg/dL (1.6-2.6); Potassium 3.1 mmol/L (3.5-5.1); Pregs Control Background? CLEAR/WHITE (CLR/WHITE); Pregs Control Bar Appear? YES (CONTROL BAR); Protein, Total 8.2 g/dL (6.0-8.3); Sodium 137 mmol/L (136-145)
[2023-07-22 12:56] LABS: Troponin I Less than 0.010 ng/mL (< 0.028)
[2023-07-22] MEDS ORDERED: Magnesium 2 GM/50 ML BAG (IN WATER) ONE (13:14)
[2023-07-22] MEDS ORDERED: Potassium Chloride 20 MEQ TAB ONE (13:14)
[2023-07-22] MEDS ORDERED: levETIRAcetam 500 MG/5 ML VIAL ONE (13:14)
== END 2023-07-22 13:27 | disposition left against medical advice (07) ==
LOC: ERS 11:48
DX: R56.9 Unspecified convulsions (principal); F17.210 Nicotine dependence, cigarettes, uncomplicated; Z86.73 Personal history of transient ischemic attack (TIA), and cerebral infarction without residual deficits; Z86.16 Personal history of COVID-19; Z79.899 Other long term (current) drug therapy
CPT/HCPCS: 36415; 71045; 80053; 83690; 83735; 84146; 84484; 84703; 85025; 93005; 96360; J1953; J2060; J3475

== ENCOUNTER 2023-08-27 10:43 | Emergency (ER) | payer OTHER | END 2023-08-27 11:19 | LOC: ERS 10:43 | DX: F17.210 Nicotine dependence, cigarettes, uncomplicated (principal); Z02.89 Encounter for other administrative examinations; Z86.16 Personal history of COVID-19; Z86.73 Personal history of transient ischemic attack (TIA), and cerebral infarction without residual deficits | CPT/HCPCS: 99282 ==

== ENCOUNTER 2023-09-10 02:01 | Emergency (ER) | payer OTHER ==
[2023-09-10] MEDS ORDERED: levETIRAcetam 500 MG TAB ONE (02:56)
== END 2023-09-10 03:01 | disposition home or self-care (01) ==
LOC: ERS 02:01
DX: G40.909 Epilepsy, unspecified, not intractable, without status epilepticus (principal); F17.210 Nicotine dependence, cigarettes, uncomplicated; Z86.16 Personal history of COVID-19; Z86.73 Personal history of transient ischemic attack (TIA), and cerebral infarction without residual deficits; Z79.899 Other long term (current) drug therapy
CPT/HCPCS: 99283

== ENCOUNTER 2023-10-02 05:49 | Emergency (ER) | payer OTHER | END 2023-10-02 08:16 | disposition left against medical advice (07) | LOC: ERS 05:49 | DX: R53.1 Weakness (principal); R20.2 Paresthesia of skin | CPT/HCPCS: 36416; 93005 ==

== ENCOUNTER 2023-11-03 11:59 | Emergency (ER) | payer OTHER ==
[2023-11-03] MEDS ORDERED: Lorazepam 1 MG TAB ONE ×2 (12:20→12:25)
[2023-11-03 12:31] LABS: #Monocytes 0.6 thou/uL (0.11-0.59); #Neutrophils 8.5 thou/uL (1.40-6.50); %Basophils 0.3 % (0.0-1.0); %Eosinophils 0.2 % (0.0-10.0); %Lymphocytes 16.8 % (21.0-51.0); %Monocytes 5.2 % (0.0-10.0); %Neutrophils 77.3 % (42.0-75.0); Hematocrit 40.5 % (36.0-47.0); Hemoglobin 13.9 g/dL (12.0-16.0); Mean Corpuscular HGB CONC 34.3 g/dL (32.0-36.0); Mean Corpuscular Hemoglobin 31.1 pg (27.0-31.0); Mean Corpuscular Volume 90.6 fl (78.0-98.0); Mean Platelet Volume 9.6 fL (7.4-10.4); Platelet Count 284 10x3/uL (130-400); RBC Distribution Width 12.5 % (11.5-14.5); Red Blood Cell (RBC) Count 4.47 mill/uL (4.20-5.40); White Blood Cell (WBC) Count 10.9 10x3/uL (4.8-10.8)
[2023-11-03 12:48] LABS: Acetaminophen Less than 10 mcg/mL (10.0-30.0); Alcohol Less than 10.0 mg/dL (Less than 10); Salicylate Less than 8.0 mg/dL (15.0-30.0)
[2023-11-03 12:49] LABS: ALT (SGPT) 16 U/L (8-55); AST (SGOT) 18 U/L (5-34); Alkaline Phosphatase 117 U/L (40-110); Anion Gap 12 mmol/L (10-20); BUN (Urea Nitrogen) 11 mg/dL (7.0-18.7); Bilirubin, Total 0.7 mg/dL (0.2-1.2); CK (CPK) 49 U/L (29-168); Calc. Creatinine Clearance 0 mL/min (70-130); Calcium 9.1 mg/dL (7.8-10.44); Carbon Dioxide 23 mmol/L (22-29); Chloride 103 mmol/L (98-107); Estimated GFR 92; Globulin 3.4 g/dL (2.4-3.5); Glucose 110 mg/dL (70-105); Potassium 3.4 mmol/L (3.5-5.1); Protein, Total 7.4 g/dL (6.0-8.3); Sodium 135 mmol/L (136-145)
[2023-11-03 22:24] LABS: Bacteria/HPF 2+ HPF (None Seen); Bilirubin Negative (Negative); Blood, Urine Negative (Negative); CAUTI Indications for Culture Alt mental st,lethar; Clarity Turbid (Clear); Glucose, Urine (Dipstick) Normal (Negative); Ketone, Urine 20 mg/dL (Negative); Leukocyte Negative Leu/uL (Negative); Nitrite Negative (Negative); Protein, Urine (Dipstick) 30 mg/dL (Neg-Trace); RBC/HPF 0-3 HPF (0-3); Specific Gravity, Urine 1.028 (1.002-1.036); WBC/HPF 0-3 HPF (0-3); pH, Urine 6.5 (5.0-9.0)
[2023-11-03 22:26] LABS: Pregnancy Test - Urine (BHCG) Negative (Negative); Pregu Control Background? CLEAR/WHITE (CLR/WHITE); Pregu Control Bar Appear? YES (CONTROL BAR); Specific Gravity 1.028 (1.002-1.036); Urine Culture Reflex No No
[2023-11-03 22:33] LABS: Amphetamine Detected (NotDetected); Barbiturates Screen Not Detected (NotDetected); Benzodiazepine Screen Detected (NotDetected); Cocaine Metabolite Screen Not Detected (NotDetected); Methadone Not Detected (NotDetected); Methamphetamine Detected (NotDetected); Opiate Screen Not Detected (NotDetected); Oxycodone Screen Not Detected (NotDetected); Phencyclidine (PCP) Not Detected (NotDetected); THC/Cannabinoid Screen Detected (NotDetected); Tricyclic Screen Not Detected (NotDetected)
[2023-11-04] MEDS ORDERED: Lorazepam 1 MG TAB ONE (00:34)
== END 2023-11-04 04:25 | disposition home or self-care (01) ==
LOC: ERS 11:59
DX: R44.0 Auditory hallucinations (principal); F15.10 Other stimulant abuse, uncomplicated; F17.210 Nicotine dependence, cigarettes, uncomplicated; Z86.16 Personal history of COVID-19; Z86.73 Personal history of transient ischemic attack (TIA), and cerebral infarction without residual deficits
CPT/HCPCS: 36415; 80053; 80306; 80307; 81001; 81025; 82550; 84443; 85025; 93005

== ENCOUNTER 2024-01-08 05:27 | Emergency (ER) | payer SELFPAY | END 2024-01-08 06:23 | LOC: ERS 05:27 | DX: F15.10 Other stimulant abuse, uncomplicated (principal); F23 Brief psychotic disorder; F17.210 Nicotine dependence, cigarettes, uncomplicated | CPT/HCPCS: 99284 ==

== ENCOUNTER 2024-01-16 01:31 | Emergency (ER) | payer MEDICARE, SELFPAY ==
[2024-01-16 03:20] LABS: #Basophils 0.03 10x3/uL (0.0-0.2); %Basophils 0.3 % (0.0-1.0); %Eosinophils 1.9 % (0.0-10.0); %Lymphocytes 25.4 % (21.0-51.0); %Monocytes 7.2 % (0.0-10.0); %Neutrophils 65.1 % (42.0-75.0); Hematocrit 39.2 % (36.0-47.0); Hemoglobin 13.2 g/dL (12.0-16.0); Mean Corpuscular HGB CONC 33.7 g/dL (32.0-36.0); Mean Corpuscular Hemoglobin 30.1 pg (27.0-31.0); Mean Corpuscular Volume 89.5 fL (78.0-98.0); Mean Platelet Volume 10.7 fL (7.4-10.4); Platelet Count 264 10x3/uL (130-400); Red Blood Cell (RBC) Count 4.38 mill/uL (4.20-5.40)
[2024-01-16 03:42] LABS: Globulin 3.4 g/dL (2.4-3.5)
[2024-01-16 03:45] LABS: Acetaminophen Less than 10 mcg/mL (10.0-30.0); Alcohol Less than 10.0 mg/dL (Less than 10); Salicylate Less than 8.0 mg/dL (15.0-30.0)
[2024-01-16 03:46] LABS: ALT (SGPT) 15 U/L (8-55); AST (SGOT) 16 U/L (5-34); Albumin 3.4 g/dL (3.5-5.0); Alkaline Phosphatase 103 U/L (40-110); Anion Gap 14 mmol/L (10-20); BUN (Urea Nitrogen) 13 mg/dL (7.0-18.7); Bilirubin, Total 0.5 mg/dL (0.2-1.2); Calc. Creatinine Clearance 0 mL/min (70-130); Calcium 9.1 mg/dL (7.8-10.44); Carbon Dioxide 21 mmol/L (22-29); Chloride 110 mmol/L (98-107); Estimated GFR 103; Glucose 110 mg/dL (70-105); Potassium 3.3 mmol/L (3.5-5.1); Protein, Total 6.8 g/dL (6.0-8.3); Sodium 142 mmol/L (136-145)
[2024-01-16 07:14] LABS: Amphetamine Detected (NotDetected); Barbiturates Screen Not Detected (NotDetected); Benzodiazepine Screen Not Detected (NotDetected); Cocaine Metabolite Screen Not Detected (NotDetected); Methadone Not Detected (NotDetected); Methamphetamine Detected (NotDetected); Opiate Screen Not Detected (NotDetected); Oxycodone Screen Not Detected (NotDetected); Phencyclidine (PCP) Not Detected (NotDetected); THC/Cannabinoid Screen Not Detected (NotDetected); Tricyclic Screen Not Detected (NotDetected)
[2024-01-16] MEDS ORDERED: hydrOXYzine Pamoate 25 mg Capsule ONE (08:34)
[2024-01-16] MEDS ORDERED: levETIRAcetam 500 MG TAB ONE (08:34)
== END 2024-01-16 13:12 ==
LOC: ERS 01:31
DX: R45.851 Suicidal ideations (principal); F17.210 Nicotine dependence, cigarettes, uncomplicated; Z86.16 Personal history of COVID-19; Z86.73 Personal history of transient ischemic attack (TIA), and cerebral infarction without residual deficits; Z79.899 Other long term (current) drug therapy
CPT/HCPCS: 36415; 70450; 80053; 80306; 80307; 84443; 85025; 93005; Q0177

== ENCOUNTER 2024-08-25 04:28 | Emergency (ER) | payer MEDICARE, MEDICAID ==
[2024-08-25] MEDS ORDERED: levETIRAcetam 500 MG (5 mL) VIAL ONE (04:53)
[2024-08-25 05:01] LABS: #Basophils 0.04 10x3/uL (0.0-0.2); #Eosinophils Less than 0.03 10x3/uL (0.0-0.7); %Basophils 0.3 % (0.0-1.0); %Eosinophils 0.1 % (0.0-10.0); %Lymphocytes 9.6 % (21.0-51.0); %Monocytes 4.5 % (0.0-10.0); %Neutrophils 85.2 % (42.0-75.0); Hematocrit 39.9 % (36.0-47.0); Hemoglobin 13.4 g/dL (12.0-16.0); Mean Corpuscular HGB CONC 33.6 g/dL (32.0-36.0); Mean Corpuscular Hemoglobin 30.4 pg (27.0-31.0); Mean Corpuscular Volume 90.5 fL (78.0-98.0); Mean Platelet Volume 10.2 fL (7.4-10.4); Platelet Count 306 10x3/uL (130-400); RBC Distribution Width 13.2 % (11.5-14.5); Red Blood Cell (RBC) Count 4.41 mill/uL (4.20-5.40)
[2024-08-25 05:10] LABS: Lipase 28 U/L (8-78)
[2024-08-25 05:11] LABS: ALT (SGPT) 18 U/L (8-55); AST (SGOT) 15 U/L (5-34); Albumin 3.8 g/dL (3.5-5.0); Alkaline Phosphatase 103 U/L (40-110); Anion Gap 13 mmol/L (10-20); BUN (Urea Nitrogen) 12 mg/dL (7.0-18.7); Bilirubin, Total 0.1 mg/dL (0.2-1.2); CK (CPK) 44 U/L (29-168); Calc. Creatinine Clearance 0 mL/min (70-130); Carbon Dioxide 18 mmol/L (22-29); Chloride 108 mmol/L (98-107); Estimated GFR 99; Globulin 3.8 g/dL (2.4-3.5); Glucose 132 mg/dL (70-105); Potassium 3.8 mmol/L (3.5-5.1); Protein, Total 7.6 g/dL (6.0-8.3); Sodium 135 mmol/L (136-145)
[2024-08-25 05:12] LABS: Acetaminophen Less than 10 mcg/mL (Less than 10); Alcohol Less than 10.0 mg/dL (Less than 10); Salicylate Less than 8.0 mg/dL (Less than 8.0)
[2024-08-25 05:17] LABS: Troponin I Less than 0.010 ng/mL (< 0.028)
[2024-08-25 06:25] LABS: Bacteria/HPF None Seen HPF (None Seen); Bilirubin Negative (Negative); Blood, Urine Negative (Negative); CAUTI Indications for Culture Alt mental st,lethar; Clarity Clear (Clear); Glucose, Urine (Dipstick) Normal (Negative); Ketone, Urine Negative (Negative); Leukocyte Negative Leu/uL (Negative); Nitrite Negative (Negative); Protein, Urine (Dipstick) Negative (Neg-Trace); RBC/HPF 0-3 HPF (0-3); Specific Gravity, Urine 1.007 (1.002-1.036); Squamous Epithelial 0-3 HPF (0-3); Urobilinogen Normal mg/dL (Less than 2); WBC/HPF 0-3 HPF (0-3); pH, Urine 6.5 (5.0-9.0)
[2024-08-25 06:39] LABS: Urine Culture Reflex No No
[2024-08-25 06:40] LABS: Amphetamine Detected (NotDetected); Barbiturates Screen Not Detected (NotDetected); Benzodiazepine Screen Not Detected (NotDetected); Cocaine Metabolite Screen Not Detected (NotDetected); Methadone Not Detected (NotDetected); Methamphetamine Detected (NotDetected); Opiate Screen Not Detected (NotDetected); Oxycodone Screen Not Detected (NotDetected); Phencyclidine (PCP) Not Detected (NotDetected); THC/Cannabinoid Screen Not Detected (NotDetected); Tricyclic Screen Not Detected (NotDetected)
== END 2024-08-25 06:59 | disposition home or self-care (01) ==
LOC: ERS 04:28
DX: R56.9 Unspecified convulsions (principal); F15.20 Other stimulant dependence, uncomplicated; F17.210 Nicotine dependence, cigarettes, uncomplicated
CPT/HCPCS: 71045; 80177; 80306; 80307; 81001; 82140; 82550; 82962; 83605; 83690; 84484; 93005; J1953; 36416; 80053; 84443; 85025; 96361; 96365

== ENCOUNTER 2025-05-15 21:41 | Observation (INO) | payer MEDICARE, MEDICAID ==
[2025-05-16] MEDS ORDERED: Calcium Carbonate 500 MG ChewTAB PO PRN (01:12)
[2025-05-16] MEDS ORDERED: Acetaminophen 325 MG TAB PO PRN (01:12)
[2025-05-16] MEDS ORDERED: Ondansetron PF 4 MG/2 ML Vial IVP PRN (01:12)
[2025-05-16] MEDS ORDERED: Electrolyte Replacement Protocol 1 EACH FS PRN (01:15)
[2025-05-16 01:54] VITALS: BMI 30.7
[2025-05-16 05:14] LABS: ALT (SGPT) 23 U/L (Less than 34); AST (SGOT) 22 U/L (11-34); Albumin 3.6 g/dL (3.1-4.5); Alkaline Phosphatase 87 U/L (40-110); Anion Gap 10 mmol/L (10-20); BUN (Urea Nitrogen) 13 mg/dL (7.0-18.7); Bilirubin, Total 0.3 mg/dL (0.3-1.2); Calc. Creatinine Clearance 96 mL/min (70-130); Calcium 8.3 mg/dL (7.8-10.44); Carbon Dioxide 27 mmol/L (22-29); Chloride 106 mmol/L (98-107); Globulin 2.7 g/dL (2.4-3.5); Glucose 101 mg/dL (70-105); Magnesium 1.9 mg/dL (1.6-2.6); Potassium 3.7 mmol/L (3.5-5.1); Sodium 139 mmol/L (136-145)
[2025-05-16 05:41] LABS: #Basophils 0.03 10x3/uL (0.0-0.2); #Eosinophils 0.16 10x3/uL (0.0-0.7); #Monocytes 0.44 10x3/uL (0.11-0.59); #Neutrophils 4.65 10x3/uL (1.40-6.50); %Basophils 0.4 % (0.0-1.0); %Eosinophils 2.2 % (0.0-10.0); %Lymphocytes 26.1 % (21.0-51.0); %Monocytes 6.1 % (0.0-10.0); %Neutrophils 64.9 % (42.0-75.0); Hematocrit 40.2 % (36.0-47.0); Hemoglobin 12.7 g/dL (12.0-16.0); Mean Corpuscular Hemoglobin 29.8 pg (27.0-31.0); Mean Corpuscular Volume 94.4 fL (78.0-98.0); Platelet Count 249 10x3/uL (130-400); Red Blood Cell (RBC) Count 4.26 mill/uL (4.20-5.40); White Blood Cell (WBC) Count 7.17 10x3/uL (4.8-10.8)
[2025-05-16] MEDS: Pantoprazole 40 MG DR.TAB PO SCH (08:23)
[2025-05-16] MEDS: levETIRAcetam 500 MG TAB PO SCH (08:23)
[2025-05-16] MEDS: Magnesium 2 GM/50 ML(in water) 2 GM in Premix 1 BAG IVPB SCH (08:23)
[2025-05-16] MEDS: PNEUMOC 20-VAL CONJ-DIP CRM/PF 0.5 ML SYRINGE IM ONE (09:12)
[2025-05-16 11:23] VITALS: BP 108/63; TEMP 98.2
== END 2025-05-16 14:20 | disposition home or self-care (01) ==
LOC: 2NO 05-16 00:14
PROVIDERS: ADMIT Student in an Organized Health Care Education/Training Program; ATTEND Internal Medicine
DX: G40.909 Epilepsy, unspecified, not intractable, without status epilepticus (principal); J69.0 Pneumonitis due to inhalation of food and vomit; Z88.8 Allergy status to other drugs, medicaments and biological substances; Z91.018 Allergy to other foods; Z79.899 Other long term (current) drug therapy
CPT/HCPCS: 70551; 80053; 83735; 85025; J3475; 36415; 96374; G0378